=== PATIENT | male | born 1960 | race Caucasian/White ===

== ENCOUNTER 2016-10-30 06:06 | Day surgery (SDC) | payer MEDICARE, MEDICAID ==
[~2016-10-30] VITALS: Ht 157.5 cm; Wt 70.0 kg
[~2016-10-30 06:06] MED LIST: ASPI81TA2 PO; CARV25TA2 PO; GLIM1TAB2 PO; HYDR-4010 PO; LISI40TA4 PO; METF-206 PO
--- OUTSIDE RECORDS SUMMARY | 2016-10-30 06:09 | XMS REPORT | Referral Summary ---
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 Name Role Phone Anel Combs Primary Care Physician [phone] Encounter Date(s): 12/04/14 - 12/04/14 [facility] [address] [place] [address] Discharge Diagnosis: Chronic hepatitis C Discharge Diagnosis: Chronic back pain Discharge Diagnosis: Cardiomyopathy Discharge Diagnosis: Benign essential hypertension Discharge Diagnosis: Dyslipidemia Discharge Diagnosis: Congestive heart failure Discharge Diagnosis: Microalbuminuric Diabetic Nephropathy Discharge Disposition: 01-Home or Self Care Attending Physician: Sol Steele APRN Admitting Physician: Sol Steele APRN Vital Signs Most recent to 1 oldest [Reference Range]: Temperature Tympanic 36.3 degC [36.6-38.1 degC] *LOW* (12/04/14 10:59 AM) Peripheral Pulse 92 bpm Rate [60-100 bpm] (12/04/14 10:59 AM) Blood Pressure 110/84 mmHg [90-140/60-90 mmHg] (12/04/14 10:59 AM) Problem List Condition Effective Dates Status Health Status Informant Benign essential Active hypertension (disorder)(Confirmed ) PRIM CARDIOMYOPATHY Active NEC(Confirmed)1 Chronic back Active pain(Confirmed) Chronic hepatitis C Active (disorder)(Confirmed ) Congestive heart Active failure (disorder)(Confirmed )2 Microalbuminuric Active Diabetic Nephropathy(Confirme d) congenital Active HD(Confirmed) ECHO-ASYMETIC SEVERE 09/13/09 Active LVH L-VENTRICAL HYPODENSISI-EF 35%(Confirmed) Asymmetrical septal Active hypertrophy(Confirme d) Dyslipidemia(Confirm Active ed) Pedal Active Edema(Confirmed) GERD without Active esophagitis(Confirme d) Valvular heart 05/31/14 Active disease(Confirmed)3 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 See Conversion Document 2echo 09/13/09, 07/08/11 - Hypertrophic cardiomyopathy, LVH, EF 35-39% (Dr. Bueno) . See Conversion Document 3severe aortic valvular insuff. moderate aortic stenosis, mod. severe valvular insuff, sign elev. of R heart pressures and moderate pulm stenosis. Severe pulm HTN, low cardiac output EF 33Dr. Myles. See Conversion Document Allergies, Adverse Reactions, Alerts No Known Allergies Medications aspirin 325 mg, Oral, 0 Refill(s) Start Date: 12/29/13 Status: Ordered FOR HEP C FOR HEP C, Ghassan-Dr. Valencia, 0 Refill(s) Start Date: 03/26/15 Status: Ordered glimepiride 1 mg oral tablet See Instructions, TAKE 1 TABLET BY MOUTH EVERY DAY, # 30 tabs, 5 Refill(s), CARLA , eRx: [facility] [id number], TAKE 1 TABLET BY MOUTH EVERY DAY Start Date: 03/29/15 Status: Ordered Glucometer strips (DME) DME Item test blood sugars once daily dx 250.00, See Instructions, # 30 tabs, 11 Refill(s), Pharmacy: [facility] [id number], test blood sugars once daily dx 250.00, Supply Start Date: 02/08/14 Status: Ordered HYDROcodone-acetaminophen 7.5 mg-325 mg oral tablet 1 tabs, Oral, q6hr, as needed for pain, must last 30 days, # 60 tabs, 0 Refill(s ) Start Date: 05/30/15 Status: Ordered lisinopril 40 mg oral tablet See Instructions, TAKE 1 BY MOUTH EVERY DAY., # 90 unknown unit, eRx: [facility] [id number], TAKE 1 BY MOUTH EVERY DAY. Start Date: 05/09/14 Status: Ordered metFORMIN 1000 mg oral tablet 1,000 mg 1 tabs, Oral, BID, # 180 tabs, 0 Refill(s), CARLA, Pharmacy: [facility] [id number], 1 tabs Oral BID Start Date: 02/11/15 Status: Ordered metFORMIN 1000 mg oral tablet See Instructions, 1 TABS ORAL BID, # 180 tabs, CARLA, eRx: [facility] [id number], 1 TABS ORAL BID Start Date: 05/13/15 Status: Ordered Pravachol 20 mg oral tablet See Instructions, TAKE 1.5 TABS PO QHS, # 135 unknown unit, 5 Refill(s), eRx: [facility] [id number], TAKE 1.5 TABS PO QHS Start Date: 06/07/14 Status: Ordered Results No data available for this section Immunizations Vaccine Date Refusal Reason hepatitis A-hepatitis B vaccine 12/14/11 hepatitis A-hepatitis B vaccine 10/12/11 hepatitis B adult vaccine 11/17/12 influenza virus vaccine, inactivated 05/30/15 influenza virus vaccine, inactivated 05/01/14 influenza virus vaccine, live 04/13/13 influenza virus vaccine, live 07/02/11 influenza virus vaccine, live 05/06/09 influenza virus vaccine, live 06/19/08 pneumococcal 23-polyvalent vaccine 07/02/11 tetanus/diphtheria/pertussis, acel(Tdap) 11/03/12 varicella virus vaccine 11/03/12 Procedures Procedure Date Related Diagnosis Body Site Echocardiogram 2012 Gall Bladder 05/2010 Heart valve replacement, 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 Plan follow-up with Dr. Combs in 3-6 months. Sooner if problems develop. Benign essential hypertension Report card initiated. We will mail patient results when lab has returned. Cardiomyopathy Continue to follow with cardiology. Chronic hepatitis C Patient has appointment with Dr. Valencia later this month for possible hepatitis C treatment. Requested he discussed routine colonoscopy with him further. Congestive heart failure Continue to follow with cardiology. Dyslipidemia Lab today. We'll call with results. Microalbuminuric Diabetic Nephropathy Lab today. We'll call with results. Orders: HYDROcodone-acetaminophen, 1 tabs, Oral, q6hr, as needed for pain, must last 30 days, # 60 tabs, 0 Refill(s)
[2016-10-30 06:10] VITALS: BP 169/81; PULSE 66; RESP 16; TEMP 97.7; O2SAT 98; Ht 157.5 cm; Wt 70.0 kg
--- OUTSIDE RECORDS SUMMARY | 2016-10-30 06:10 | XMS REPORT | Referral Summary ---
Author Author [facility] Organization [facility] Address Unknown Phone Unavailable Care Team Providers Care Miller Kiln Dried Salt Name Role Phone Jose Ramachandran Primary Care Physician [phone] Encounter VC Date(s): 05/02/15 - 05/02/15 [facility] [address] [place], [place] [address] Discharge Diagnosis: Hepatitis C Discharge Disposition: 01-Home or Self Care Attending Physician: Carlin Valencia MD Admitting Physician: Carlin Valencia MD Vital Signs Most recent to 1 oldest [Reference Range]: Peripheral Pulse 68 bpm Rate [60-100 bpm] (05/02/15 8:38 AM) Blood Pressure 110/74 mmHg [90-140/60-90 mmHg] (05/02/15 8:38 AM) Problem List Condition Effective Dates Status Health Status Informant Valvular heart 05/31/14 Active disease(Confirmed)1 Benign essential Active hypertension (disorder)(Confirmed ) PRIM CARDIOMYOPATHY Active NEC(Confirmed)2 Chronic hepatitis C Active (disorder)(Confirmed ) Congestive heart Active failure (disorder)(Confirmed )3 Microalbuminuric Active Diabetic Nephropathy(Confirme d) congenital Active HD(Confirmed) ECHO-ASYMETIC SEVERE 09/13/09 Active LVH L-VENTRICAL HYPODENSISI-EF 35%(Confirmed) Asymmetrical septal Active hypertrophy(Confirme d) Dyslipidemia(Confirm Active ed) Pedal Active Edema(Confirmed) GERD without Active esophagitis(Confirme d) 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 moderate aortic stenosis, mod. severe valvular insuff, sign elev. of R heart pressures and moderate pulm stenosis. Severe pulm HTN, low cardiac output EF 33Dr. Bueno. See Conversion Document 2Nonischemic Cardiomyopathy. See Conversion Document 3echo 09/13/09, 07/08/11 - Hypertrophic cardiomyopathy, LVH, EF 35-39% (Dr. Bueno) . See Conversion Document Allergies, Adverse Reactions, Alerts No Known Allergies Medications aspirin 325 mg, Oral, 0 Refill(s) Start Date: 12/29/13 Status: Ordered FOR HEP C FOR HEP C, Ghassan-Dr. Valencia, 0 Refill(s) Start Date: 03/26/15 Status: Ordered glimepiride 1 mg oral tablet See Instructions, TAKE 1 TABLET BY MOUTH EVERY DAY, # 30 tabs, 2 Refill(s), CARLA , eRx: [facility] [id number], TAKE 1 TABLET BY MOUTH EVERY DAY Start Date: 09/26/15 Status: Ordered Glucometer strips (DME) DME Item test blood sugars once daily dx 250.00, See Instructions, # 30 tabs, 11 Refill(s), Pharmacy: [facility] [id number], test blood sugars once daily dx 250.00, Supply Start Date: 02/08/14 Status: Ordered HYDROcodone-acetaminophen 7.5 mg-325 mg oral tablet 1 tabs, Oral, q6hr, as needed for pain, must last 30 days, # 60 tabs, 0 Refill(s ) Start Date: 10/07/15 Status: Ordered lisinopril 40 mg oral tablet See Instructions, TAKE 1 BY MOUTH EVERY DAY., # 90 unknown unit, eRx: [facility] [id number], TAKE 1 BY MOUTH EVERY DAY. Start Date: 05/09/14 Status: Ordered metFORMIN 1000 mg oral tablet See Instructions, TAKE 1 TABLET BY MOUTH TWICE DAILY, # 180 tabs, 1 Refill(s), CARLA, eRx: [facility] [id number], TAKE 1 TABLET BY MOUTH TWICE DAILY Start Date: 11/11/15 Status: Ordered Pravachol 20 mg oral tablet See Instructions, TAKE 1.5 TABS PO QHS, # 135 unknown unit, eRx: [facility] [id number], TAKE 1.5 TABS PO QHS Start Date: 07/18/15 Status: Ordered ranitidine 150 mg oral tablet 150 mg 1 tabs, Oral, BID, as needed for GERD, 0 Refill(s) Start Date: 09/24/15 Status: Ordered Results No data available for this section Immunizations Vaccine Date Refusal Reason hepatitis A-hepatitis B vaccine 12/14/11 hepatitis A-hepatitis B vaccine 10/12/11 hepatitis B adult vaccine 11/17/12 influenza virus vaccine, inactivated 09/03/15 influenza virus vaccine, inactivated 05/30/15 influenza virus [...] smoker Assessment and Plan Extracted from: Title: Ambulatory Patient Education Author: Carlin Valencia MD Date: Infectious Disease Hepatitis C Hepatitis C is a viral infection of the liver. Infection may go undetected for months or years because symptoms may be absent or very mild. Chronic liver disease is the main danger of hepatitis C. This may lead to scarring of the liver (cirrhosis), liver failure, and liver cancer. CAUSES Hepatitis C is caused by the hepatitis C virus (HCV). Formerly, hepatitis C infections were most commonly transmitted through blood transfusions. In the early , routine testing of donated blood for hepatitis C and exclusion of blood that tests positive for HCV began. Now, HCV is most commonly transmitted from person to person through injection drug use, sharing needles, or sex with an infected person. A caregiver may also get the infection from exposure to the blood of an infected patient by way of a cut or needle stick. SYMPTOMS Acute Phase Many cases of acute HCV infection are mild and cause few problems.Some people may not even realize they are sick.Symptoms in others may last a few weeks to several months and include: Feeling very tired. Loss of appetite. Nausea. Vomiting. Abdominal pain. Dark yellow urine. Yellow skin and eyes (jaundice). Itching of the skin. Chronic Phase Between 50% to 85% of people who get HCV infection become "chronic carriers." They often have no symptoms, but the virus stays in their body. They may spread the virus to others and can get long-term liver disease. Many people with chronic HCV infection remain healthy for many years. However, up to 1 in 5 chronically infected people may develop severe liver diseases including scarring of the liver (cirrhosis), liver failure, or liver cancer. DIAGNOSIS Diagnosis of hepatitis C infection is made by testing blood for the presence of hepatitis C viral particles called RNA. Other tests may also be done to measure the status of current liver function, exclude other liver problems, or assess liver damage. TREATMENT Treatment with many antiviral drugs is available and recommended for some patients with chronic HCV infection. Drug treatment is generally considered appropriate for patients who: Are 18 years of age or older. Have a positive test for HCV particles in the blood. Have a liver tissue sample (biopsy) that shows chronic hepatitis and significant scarring (fibrosis). Do not have signs of liver failure. Have acceptable blood test results that confirm the wellness of other body organs. Are willing to be treated and conform to treatment requirements. Have no other circumstances that would prevent treatment from being recommended (contraindications). All people who are offered and choose to receive drug treatment must understand that careful medical follow up for many months and even years is crucial in order to make successful care possible. The goal of drug treatment is to eliminate any evidence of HCV in the blood on a long-term basis. This is called a "sustained virologic response" or SVR. Achieving a SVR is associated with a decrease in the chance of life-threatening liver problems, need for a liver transplant, liver cancer rates, and liver-related complications. Successful treatment currently requires taking treatment drugs for at least 24 weeks and up to 72 weeks. An injected drug (interferon) given weekly and an oral antiviral medicine taken daily are usually prescribed. Side effects from these drugs are common and some may be very serious. Your response to treatment must be carefully monitored by both you and your caregiver throughout the entire treatment period. PREVENTION There is no vaccine for hepatitis C. The only way to prevent the disease is to reduce the risk of exposure to the virus. Avoid sharing drug needles or personal items like toothbrushes, razors, and nail clippers with an infected person. Healthcare workers need to avoid injuries and wear appropriate protective equipment such as gloves, gowns, and face masks when performing invasive medical or nursing procedures. HOME CARE INSTRUCTIONS To avoid making your liver disease worse: Strictly avoid drinking alcohol. Carefully review all new prescriptions of medicines with your caregiver. Ask your caregiver which drugs you should avoid. The following drugs are toxic to the liver, and your caregiver may tell you to avoid them: Isoniazid. Methyldopa. Acetaminophen. Anabolic steroids (muscle-building drugs). Erythromycin. Oral contraceptives ( control pills). Check with your caregiver to make sure medicine you are currently taking will not be harmful. Periodic blood tests may be required. Follow your caregiver's advice about when you should have blood tests. Avoid a sexual relationship until advised otherwise by your caregiver. Avoid activities that could expose other people to your blood. Examples include sharing a toothbrush, nail clippers, razors, and needles. Bed rest is not necessary, but it may make you feel better. Recovery time is not related to the amount of rest you receive. This infection is contagious. Follow your caregiver's instructions in order to avoid spread of the infection. SEEK IMMEDIATE MEDICAL CARE IF: You have increasing fatigue or weakness. You have an oral temperature above 102 F (38.9 C), not controlled by medicine. You develop loss of appetite, nausea, or vomiting. You develop jaundice. You develop easy bruising or bleeding. You develop any severe problems as a result of your treatment. MAKE SURE YOU: Understand these instructions. Will watch your condition. Will get help right away if you are not doing well or get worse. Document Released: 07/09/2001 Document Revised: 10/03/2012 Document Reviewed: [facility] Patient Information 2015 [facility]. This information is not intended to replace advice given to you by your health care provider. Make sure you discuss any questions you have with your health care provider. No follow up information was provided. Extracted from: Title: GI Office Visit Note Author: Carlin Valencia MD Date: 05/02/15 Assessment/Plan Impression:Hepatitis Cwith excellent response to treatment Plan:I reassured the patient regarding thelab results. I told him we do need to check lab once more in 3 monthsto make sure that he did get a sustained response.
--- OUTSIDE RECORDS SUMMARY | 2016-10-30 06:10 | XMS REPORT | Referral Summary ---
Author Author [facility], [facility] Organization [facility] Address Unknown Phone Unavailable Care Team Providers Care Family Practice Doctor Name Role Phone Anel Combs Primary Care Physician [phone] Encounter Date(s): 12/04/14 - 12/04/14 [facility] [address] [place] [address] Discharge Diagnosis: Chronic hepatitis C Discharge [...] 30 tabs, 5 Refill(s), CARLA , eRx: [facility] [id number], TAKE 1 TABLET BY MOUTH EVERY DAY Start Date: 03/29/15 Status: Ordered Glucometer strips (DME) DME Item test blood sugars once daily dx 250.00, See Instructions, # 30 tabs, 11 Refill(s), Pharmacy: [facility] [id number], test blood sugars once daily dx 250.00, Supply Start Date: 02/08/14 Status: Ordered HYDROcodone-acetaminophen 7.5 mg-325 mg oral tablet 1 tabs, Oral, q6hr, as needed for pain, must last 30 days, # 60 tabs, 0 Refill(s ) Start Date: 03/26/15 Status: Ordered lisinopril 40 mg oral tablet See Instructions, TAKE 1 BY MOUTH EVERY DAY., # 90 unknown unit, eRx: [facility] [id number], TAKE 1 BY MOUTH EVERY DAY. Start Date: 05/09/14 Status: Ordered metFORMIN 1000 mg oral tablet 1,000 mg 1 tabs, Oral, BID, # 180 tabs, 0 Refill(s), CARLA, Pharmacy: [facility] [id number], 1 tabs Oral BID Start Date: 02/11/15 Status: Ordered metFORMIN 1000 mg oral tablet See Instructions, 1 TABS ORAL BID, # 180 tabs, CARLA, eRx: [facility] [id number], 1 TABS ORAL BID Start Date: 05/13/15 Status: Ordered Pravachol 20 mg oral tablet See Instructions, TAKE 1.5 TABS PO QHS, # 135 unknown unit, 5 Refill(s), eRx: [facility] [id number], TAKE 1.5 TABS PO QHS Start Date: 06/07/14 Status: Ordered Results No data available for this section Immunizations Vaccine Date Refusal Reason hepatitis A-hepatitis B vaccine 12/14/11 hepatitis A-hepatitis B vaccine 10/12/11 hepatitis B adult vaccine 11/17/12 influenza virus vaccine, inactivated 05/01/14 influenza virus [...] Office Visit Note CDM Author: Sol Steele APRN Date: Assessment/Plan 1.Chronic back pain Continue hydrocodone [...]
--- OUTSIDE RECORDS SUMMARY | 2016-10-30 06:10 | XMS REPORT | Referral Summary ---
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 Name Role Phone Jose Ramachandran Primary Care Physician [phone] Encounter VC Date(s): 01/02/15 - 01/02/15 [facility] [address] [place], [place] [address] Discharge Diagnosis: Hepatitis C Discharge Disposition: 01-Home or Self Care Attending Physician: Carlin Valencia MD Admitting Physician: Carlin Valencia MD Vital Signs Most recent to 1 oldest [Reference Range]: Peripheral Pulse 72 bpm Rate [60-100 bpm] (01/02/15 1:02 PM) Blood Pressure 122/76 mmHg [90-140/60-90 mmHg] (01/02/15 1:02 PM) Problem List Condition Effective Dates Status Health [...] output EF 33Dr. Bueno. See Conversion Document Allergies, Adverse Reactions, Alerts No Known Allergies Medications aspirin 325 mg, Oral, 0 Refill(s) Start Date: 12/29/13 Status: Ordered FOR HEP C FOR HEP C, Huong Valencia, 0 Refill(s) Start Date: 03/26/15 Status: Ordered glimepiride 1 mg oral tablet See Instructions, TAKE 1 TABLET BY MOUTH EVERY DAY, # 30 tabs, 5 Refill(s), CARLA , eRx: [facility] [id number], TAKE 1 TABLET BY MOUTH EVERY DAY Start Date: 03/29/15 Status: Ordered Glucometer strips (DME) DME Item test blood sugars once daily dx 250.00, See Instructions, # 30 tabs, 11 Refill(s), Pharmacy: [facility] [id number], test blood sugars once daily dx 250.00, Supply Start Date: 02/08/14 Status: Ordered HYDROcodone-acetaminophen 7.5 mg-325 mg oral tablet 1 tabs, Oral, q6hr, as needed for pain, must last 30 days, # 60 tabs, 0 Refill(s ) Start Date: 05/30/15 Status: Ordered lisinopril 40 mg oral tablet See Instructions, TAKE 1 BY MOUTH EVERY DAY., # 90 unknown unit, eRx: [facility] [id number], TAKE 1 BY MOUTH EVERY DAY. Start Date: 05/09/14 Status: Ordered metFORMIN 1000 mg oral tablet 1,000 mg 1 tabs, Oral, BID, # 180 tabs, 0 Refill(s), CARLA, Pharmacy: [facility] [id number], 1 tabs Oral BID Start Date: 02/11/15 Status: Ordered metFORMIN 1000 mg oral tablet See Instructions, 1 TABS ORAL BID, # 180 tabs, CARLA, eRx: [facility] [id number], 1 TABS ORAL BID Start Date: 05/13/15 Status: Ordered Pravachol 20 mg oral tablet See Instructions, TAKE 1.5 TABS PO QHS, # 135 unknown unit, 5 Refill(s), eRx: [facility] [id number], TAKE 1.5 TABS PO QHS Start Date: 06/07/14 Status: Ordered Results Chemistry Most recent to 1 oldest [Reference Range]: Hepatitis C viral [id number] Intl Units/mL RNA (01/02/15 2:12 PM) HCV Log10 6.3 1 (01/02/15 2:12 PM) 1Result Comment: This test is for monitoring of HCV positive patients only and should not be used as a screening test for HCV infection. 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 I think he would be a good candidate to be placed on Harvoni. We will send off a preapproval for that. We will check a viral level today on him
--- OUTSIDE RECORDS SUMMARY | 2016-10-30 06:10 | XMS REPORT | Referral Summary ---
Author Author [facility] Organization [facility] Address Unknown Phone Unavailable Care Team Providers Care Individual Small Group Instructor Name Role Phone Anel Combs Primary Care Physician [phone] Encounter VC Date(s): 05/02/15 - 05/02/15 [facility] [address] [place], [place] [address] Discharge Diagnosis: Hepatitis C Discharge Disposition: 01-Home [...] 30 tabs, 5 Refill(s), CARLA , eRx: [facility] [id number], TAKE 1 TABLET BY MOUTH EVERY DAY Start Date: 03/29/15 Status: Ordered Glucometer strips (DME) DME Item test blood sugars once daily dx 250.00, See Instructions, # 30 tabs, 11 Refill(s), Pharmacy: [facility] [id number], test blood sugars once daily dx 250.00, Supply Start Date: 02/08/14 Status: Ordered HYDROcodone-acetaminophen 7.5 mg-325 mg oral tablet 1 tabs, Oral, q6hr, as needed for pain, must last 30 days, # 60 tabs, 0 Refill(s ) Start Date: 03/26/15 Status: Ordered lisinopril 40 mg oral tablet See Instructions, TAKE 1 BY MOUTH EVERY DAY., # 90 unknown unit, eRx: [facility] [id number], TAKE 1 BY MOUTH EVERY DAY. Start Date: 05/09/14 Status: Ordered metFORMIN 1000 mg oral tablet 1,000 mg 1 tabs, Oral, BID, # 180 tabs, 0 Refill(s), CARLA, Pharmacy: [facility] [id number], 1 tabs Oral BID Start Date: 02/11/15 Status: Ordered Pravachol 20 mg oral tablet See Instructions, TAKE 1.5 TABS PO QHS, # 135 unknown unit, 5 Refill(s), eRx: [facility] [id number], TAKE 1.5 TABS PO QHS Start Date: [...] Released: 07/09/2001 Document Revised: 10/03/2012 Document Reviewed: [employer] Patient Information 2015 [facility], [employer]. This information is not intended to replace [...]
--- OUTSIDE RECORDS SUMMARY | 2016-10-30 06:10 | XMS REPORT | Referral Summary ---
[facility] Address Unknown Phone Unavailable Care Team Providers Care Informatica Mdm Developer Name Role Phone Jose Ramachandran Primary Care Physician [phone] Encounter Date(s): 10/07/15 - 10/07/15 [facility] [address] [place] [id number] Discharge Diagnosis: Benign essential hypertension Discharge Diagnosis: Type 2 diabetes mellitus without complications Discharge Diagnosis: Valvular heart disease Discharge Diagnosis: Chronic back pain Discharge Diagnosis: Microalbuminuric Diabetic Nephropathy Discharge Diagnosis: Chronic hepatitis C Discharge Disposition: 01-Home or Self Care Attending Physician: Royal Ramachandran MD Admitting Physician: Royal Ramachandran MD Vital Signs Most recent to 1 oldest [Reference Range]: Temperature Tympanic 36.7 degC [36.6-38.1 degC] (10/07/15 2:28 PM) Peripheral Pulse 84 bpm Rate [60-100 bpm] (10/07/15 2:28 PM) Respiratory Rate 18 br/min [14-20 br/min] (10/07/15 2:28 PM) Blood Pressure 124/80 mmHg [90-140/60-90 mmHg] (10/07/15 2:28 PM) Problem List Condition Effective Dates Status [...] 30 tabs, 2 Refill(s), CARLA , eRx: [facility] [id number], TAKE 1 TABLET BY MOUTH EVERY DAY Start Date: 09/26/15 Status: Ordered Glucometer strips (DME) DME Item test blood sugars once daily dx 250.00, See Instructions, # 30 tabs, 11 Refill(s), Pharmacy: [facility] 35654, test blood sugars once daily dx 250.00, Supply Start Date: 02/08/14 Status: Ordered HYDROcodone-acetaminophen 7.5 mg-325 mg oral tablet 1 tabs, Oral, q6hr, as needed for pain, must last 30 days, # 60 tabs, 0 Refill(s ) Start Date: 10/07/15 Status: Ordered lisinopril 40 mg oral tablet See Instructions, TAKE 1 BY MOUTH EVERY DAY., # 90 unknown unit, eRx: [facility] 98482, TAKE 1 BY MOUTH EVERY DAY. Start Date: 05/09/14 Status: Ordered metFORMIN 1000 mg oral tablet 1,000 mg 1 tabs, Oral, BID, # 180 tabs, 0 Refill(s), CARLA, Pharmacy: [facility] 24944, 1 tabs Oral BID Start Date: 02/11/15 Status: Ordered metFORMIN 1000 mg oral tablet See Instructions, 1 TABS ORAL BID, # 180 tabs, 0 Refill(s), CARLA, Pharmacy: [facility] 46643, 1 TABS ORAL BID Start Date: 08/16/15 Status: Ordered Pravachol 20 mg oral tablet See Instructions, TAKE 1.5 TABS PO QHS, # 135 unknown unit, eRx: [facility] 55374, TAKE 1.5 TABS PO QHS Start Date: [...] Plan Extracted from: Title: Office Visit Note Author: Royal Ramachandran MD Date: 10/07/15 Assessment/Plan Benign essential hypertension Blood pressures well-controlled. No change in current treatment is recommended at this time. Continue 3 month follow-up either with Sol or myself. Ordered: Office Visit Level 4 Est 91670 Chronic back pain Hydrocodone was refilled today no change in current treatment is recommended. Ordered: Office Visit Level 4 Est 77458 Chronic hepatitis C Most recentviral load showsnot detected. No further treatment needed. Ordered: Office Visit Level 4 Est 16829 Microalbuminuric Diabetic Nephropathy Chronic stable no change in current treatment. Type 2 diabetes mellitus without complications Glucometers of beenwell- controlled and most recent A1c is 7.3. Medications and treatments reviewed no changes are currently recommended. Valvular heart disease Appears to be chronic and stable. 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 No change in current treatment recommended. Ordered: Office Visit Level 4 Est 79028 Orders: HYDROcodone-acetaminophen, 1 tabs, Oral, q6hr, as needed for pain, must last 30 days, # 60 tabs, 0 Refill(s)
--- OUTSIDE RECORDS SUMMARY | 2016-10-30 06:10 | XMS REPORT | Referral Summary ---
Author Author [facility], [facility] Organization [facility] Address Unknown Phone Unavailable Care Team Providers Care Marshmallow Maker Name Role Phone Jose Ramachandran Primary Care Physician [phone] Encounter Date(s): 05/22/16 - 05/22/16 [facility], [address] [place] [address]- Discharge Diagnosis: Benign essential hypertension Discharge Diagnosis: Allergic rhinitis, seasonal Discharge Diagnosis: Dyslipidemia Discharge Diagnosis: Viral respiratory infection Discharge Diagnosis: Microalbuminuric Diabetic Nephropathy Discharge Disposition: 01-Home or Self Care Attending Physician: Sol Steele APRN Admitting Physician: Sol Steele APRN Vital Signs Most recent to 1 oldest [Reference Range]: Temperature Tympanic 36.2 degC [36.6-38.1 degC] *LOW* (05/22/16 2:06 PM) Peripheral Pulse 70 bpm Rate [60-100 bpm] (05/22/16 2:06 PM) Respiratory Rate 16 br/min [14-20 br/min] (05/22/16 2:06 PM) Blood Pressure 112/62 mmHg [90-140/60-90 mmHg] (05/22/16 2:06 PM) SpO2 97 % (05/22/16 2:06 PM) Problem List Condition Effective Dates Status [...] output EF 33Dr. Myles. See Conversion Document 2Nonischemic Cardiomyopathy. See Conversion Document 3echo 09/13/09, 07/08/11 - Hypertrophic cardiomyopathy, LVH, EF 35-39% (Dr. Bueno) . See Conversion Document Allergies, Adverse Reactions, Alerts No Known Allergies Medications aspirin 325 mg, Oral, 0 Refill(s) Start Date: 12/29/13 Status: Ordered diclofenac sodium 75 mg oral delayed release tablet 75 mg 1 tabs, Oral, BID, # 40 tabs, 0 Refill(s), Pharmacy: [facility], 1 tabs Oral BID Start Date: 03/09/16 Status: Ordered FOR HEP C FOR HEP C, Ghassan-Dr. Valencia, 0 Refill(s) Start Date: 03/26/15 Status: Ordered glimepiride 1 mg oral tablet See Instructions, TAKE 1 TABLET BY MOUTH EVERY DAY, # 30 tabs, 5 Refill(s), CARLA , eRx: [facility] 44666, TAKE 1 TABLET BY MOUTH EVERY DAY Start Date: 03/31/16 Status: Ordered Glucometer strips (DME) DME Item test blood sugars once daily dx 250.00, See Instructions, # 30 tabs, 11 Refill(s), Pharmacy: [facility] 42412, test blood sugars once daily dx 250.00, Supply Start Date: 02/08/14 Status: Ordered Glucometer (DME) DME Item [employer] trueresult glucometer test BS once daily DX: E11.9, See Instructions, # 1 Each, 0 Refill(s), Pharmacy: [facility] 55305, Movity trueresult glucometer; test BS once daily; DX: E11.9, Supply Start Date: 04/14/16 Status: Ordered Glucometer strips (DME) DME Item evOLED TRUERESULT TEST STRIPS TEST BS ONCE DAILY DX: E11.9, See Instructions, # 100 Each, 11 Refill(s), Pharmacy: [facility] [id number], AnzodeULT TEST STRIPS TEST BS ONCE DAILY ; DX: E11.9, Supply Start Date: 04/14/16 Status: Ordered HYDROcodone-acetaminophen 7.5 mg-325 mg oral tablet 1 tabs, Oral, q6hr, as needed for pain, must last 30 days, # 60 tabs, 0 Refill(s ) Start Date: 04/23/16 Status: Ordered lisinopril 40 mg oral tablet See Instructions, TAKE 1 BY MOUTH EVERY DAY., # 90 unknown unit, eRx: [facility] 71661, TAKE 1 BY MOUTH EVERY DAY. Start Date: 05/09/14 Status: Ordered metFORMIN 1000 mg oral tablet 1,000 mg 1 tabs, Oral, BID, NEEDS MED CHECK APPT, # 60 tabs, 0 Refill(s), CARLA, Pharmacy: [facility] 85123, 1 tabs Oral BID,Instr:NEEDS MED CHECK APPT Start Date: 05/14/16 Status: Ordered Pravachol 20 mg oral tablet See Instructions, TAKE 1.5 TABS PO QHS, # 135 unknown unit, eRx: [facility] 63088, TAKE 1.5 TABS PO QHS Start Date: 07/18/15 Status: Ordered predniSONE 20 mg oral tablet 20 mg 1 tabs, Oral, Daily, X 5 days, # 5 tabs, 0 Refill(s), Pharmacy: [facility] 01305, 1 tabs Oral Daily,x5 days Start Date: 05/22/16 Stop Date: 05/27/16 Status: Ordered ranitidine 150 mg oral tablet 150 mg 1 tabs, Oral, BID, as needed for GERD, 0 Refill(s) Start Date: 09/24/15 Status: Ordered Results No data available for this section Immunizations Vaccine Date Refusal Reason hepatitis A-hepatitis B vaccine 12/14/11 hepatitis A-hepatitis B vaccine 10/12/11 hepatitis B adult vaccine 11/17/12 influenza virus vaccine, inactivated 04/14/16 influenza virus vaccine, inactivated 09/03/15 influenza virus [...] and Plan Extracted from: Title: Office Visit Note-URI Author: Sol Steele FIELD EVIDENCE TECHNICIAN Date: Assessment/Plan 1.Viral respiratory infection Discussed with patient this is likely viral in nature. The clinical history is most compatible with that of a viral syndrome. Clinical examination does not suggest sinusitis, pneumonia, meningitis or streptococcal pharyngitis. Increase fluid intake. Enc good handwashing. Recommend OTC Delsym, Afrin nasal spray (for no more than 5 days), per package instructions as need for cough/congestion. Recommend salt water gargles, Chloraseptic spray, throat lozenges for sore throat as needed. Recommend OTC Tylenol and/or Ibuprofen per package instructions as needed for fever, pain, and body aches. No aspirin. Symptoms should improve over the next 1-2 weeks. If symptoms get worse, spikes fever, inc cough or shortness of breath to notify the office for further evaluation. I do not feel that any further extensive workup is indicated. However the patient is counseled that should new symptoms develop or the symptoms worsen, further evaluation and testing may be warranted as those symptoms declare themselves and that followup is of vital importance. Ordered: Office Visit Level 3 Est 49430 2.Allergic rhinitis, seasonal Claritin 10 mg dly. Ordered: Office Visit Level 3 Est 08348 3.Microalbuminuric Diabetic Nephropathy Due for chronic disease management and lab. Patient to get lab workMonday and, later in the week to review. He has had his flu shot this year. Ordered: Albumin/Creatinine Ratio, Urine Hemoglobin A1c Office Visit Level 3 Est 31534 4.Benign essential hypertension Ordered: Comprehensive Metabolic Panel Lipid Panel Office Visit Level 3 Est 49399 5.Dyslipidemia Ordered: Lipid Panel Office Visit Level 3 Est 19262
--- OUTSIDE RECORDS SUMMARY | 2016-10-30 06:10 | XMS REPORT ---
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
--- OUTSIDE RECORDS SUMMARY | 2016-10-30 06:10 | XMS REPORT | Referral Summary ---
Author Author [facility], [facility] Organization [facility] Address Unknown Phone Unavailable Care Team Providers Care Information Services Consultant Name Role Phone Anel Combs Primary Care Physician [phone] Encounter Date(s): 12/04/14 - 12/04/14 [facility] [address] [place] [id number] Discharge Diagnosis: Chronic hepatitis C Discharge Diagnosis: [...] 30 tabs, 5 Refill(s), CARLA , eRx: [facility] 73010, TAKE 1 TABLET BY MOUTH EVERY DAY Start Date: 03/29/15 Status: Ordered Glucometer strips (DME) DME Item test blood sugars once daily dx 250.00, See Instructions, # 30 tabs, 11 Refill(s), Pharmacy: [facility] 14187, test blood sugars once daily dx 250.00, Supply Start Date: 02/08/14 Status: Ordered HYDROcodone-acetaminophen 7.5 mg-325 mg oral tablet 1 tabs, Oral, q6hr, as needed for pain, must last 30 days, # 60 tabs, 0 Refill(s ) Start Date: 05/30/15 Status: Ordered lisinopril 40 mg oral tablet See Instructions, TAKE 1 BY MOUTH EVERY DAY., # 90 unknown unit, eRx: [facility] 76748, TAKE 1 BY MOUTH EVERY DAY. Start Date: 05/09/14 Status: Ordered metFORMIN 1000 mg oral tablet 1,000 mg 1 tabs, Oral, BID, # 180 tabs, 0 Refill(s), ACRLA, Pharmacy: [facility] 45971, 1 tabs Oral BID Start Date: 02/11/15 Status: Ordered metFORMIN 1000 mg oral tablet See Instructions, 1 TABS ORAL BID, # 180 tabs, CARLA, eRx: [facility] 00275, 1 TABS ORAL BID Start Date: 05/13/15 Status: Ordered Pravachol 20 mg oral tablet See Instructions, TAKE 1.5 TABS PO QHS, # 135 unknown unit, 5 Refill(s), eRx: [facility] [address]8637, TAKE 1.5 TABS PO QHS Start Date: [...] Office Visit Note CDM Author: Sol Steele PERFORMANCE IMPROVEMENT DIRECTOR Date: Assessment/Plan 1.Chronic back pain Continue hydrocodone [...]
--- OUTSIDE RECORDS SUMMARY | 2016-10-30 06:10 | XMS REPORT | Referral Summary ---
Author Author [facility], [facility] Organization [facility] Address Unknown Phone Unavailable Care Team Providers Care Medical Accounting Clerk Name Role Phone Jose Ramachandran Primary Care Physician [phone] Encounter VC Date(s): 03/09/16 - 03/09/16 [facility] [address] [place] [address]- Discharge Diagnosis: Left shoulder pain Discharge Disposition: 01-Home or Self Care Attending Physician: Royal Ramachandran MD Admitting Physician: Royal Ramachandran MD Vital Signs Most recent to 1 oldest [Reference Range]: Temperature Tympanic 36.1 degC [36.6-38.1 degC] *LOW* (03/09/16 11:15 AM) Peripheral Pulse 88 bpm Rate [60-100 bpm] (03/09/16 11:15 AM) Respiratory Rate 24 br/min [14-20 br/min] *HI* (03/09/16 11:15 AM) Blood Pressure 160/102 mmHg [90-140/60-90 mmHg] *HI* (03/09/16 11:15 AM) Problem List Condition Effective Dates Status [...] d) Erectile 11/2010 Active dysfunction(Confirme d) Retinal 2013 Resolved edema(Confirmed) Chronic back Active pain(Confirmed) 1severe [...] BID, # 40 tabs, 0 Refill(s), Pharmacy: [facility] 82128, 1 tabs Oral BID Start Date: 03/09/16 Status: Ordered FOR HEP C FOR HEP C, Ghassan-Dr. Valencia, 0 Refill(s) Start Date: 03/26/15 Status: Ordered glimepiride 1 mg oral tablet See Instructions, TAKE 1 TABLET BY MOUTH EVERY DAY, # 30 tabs, 2 Refill(s), CARLA , eRx: [facility] 00673, TAKE 1 TABLET BY MOUTH EVERY DAY Start Date: 12/30/15 Status: Ordered Glucometer strips (DME) DME Item test blood sugars once daily dx 250.00, See Instructions, # 30 tabs, 11 Refill(s), Pharmacy: [facility] 28336, test blood sugars once daily dx 250.00, Supply Start Date: 02/08/14 Status: Ordered HYDROcodone-acetaminophen 7.5 mg-325 mg oral tablet 1 tabs, Oral, q6hr, as needed for pain, must last 30 days, # 60 tabs, 0 Refill(s ) Start Date: 02/11/16 Status: Ordered lisinopril 40 mg oral tablet See Instructions, TAKE 1 BY MOUTH EVERY DAY., # 90 unknown unit, eRx: [facility] [id number], TAKE 1 BY MOUTH EVERY DAY. Start Date: 05/09/14 Status: Ordered metFORMIN 1000 mg oral tablet See Instructions, TAKE 1 TABLET BY MOUTH TWICE DAILY, # 180 tabs, 1 Refill(s), CARLA, eRx: [facility] 72348, TAKE 1 TABLET BY MOUTH TWICE DAILY Start Date: 11/11/15 Status: Ordered Pravachol 20 mg oral tablet See Instructions, TAKE 1.5 TABS PO QHS, # 135 unknown unit, eRx: [facility] 26259, TAKE 1.5 TABS PO QHS Start Date: [...] Visit Note Author: Royal Ramachandran MD Date: 03/09/16 Assessment/Plan 1.Left shoulder pain His x-ray looks pretty good at think this is more of a tendinitis and some muscle strain. I've recommended a regular dose of diclofenac 75 mg twice a dayfor the next 10-14 days if not improving he'll let us know. I didtell him that his blood pressure was a little on the high side here today he has been checking it occasionally at home and it's been in the normal range. I've asked him to follow-upin the next monthforhis diabetes and hypertension. If his shoulders not improving he'll let us now. Ordered: XR Shoulder Complete Left Orders: diclofenac, 75 mg 1 tabs, Oral, BID, # 40 tabs, 0 Refill(s), Pharmacy : [facility] 93584, 1 tabs Oral BID
--- OUTSIDE RECORDS SUMMARY | 2016-10-30 06:10 | XMS REPORT | Referral Summary ---
Author Author [facility], [facility] Organization [facility] Address Unknown Phone Unavailable Care Team Providers Care Desktop Manager Name Role Phone Jose Ramachandran Primary Care Physician [phone] Encounter VC Date(s): 04/14/16 - 04/14/16 [facility] [address] [place] [address]- Discharge Diagnosis: Strain of left trapezius muscle Discharge Disposition: 01-Home or Self Care Attending Physician: Sol Steele APRN Admitting Physician: Sol Steele APRN Vital Signs Most recent to 1 oldest [Reference Range]: Temperature Tympanic 36.5 degC [36.6-38.1 degC] *LOW* (04/14/16 8:39 AM) Peripheral Pulse 72 bpm Rate [60-100 bpm] (04/14/16 8:39 AM) Blood Pressure 126/78 mmHg [90-140/60-90 mmHg] (04/14/16 8:39 AM) Problem List Condition Effective Dates Status [...] BID, # 40 tabs, 0 Refill(s), Pharmacy: [facility], 1 tabs Oral BID Start Date: 03/09/16 Status: Ordered FOR HEP C FOR HEP C, Ghassan-Dr. Valencia, 0 Refill(s) Start Date: 03/26/15 Status: Ordered glimepiride 1 mg oral tablet See Instructions, TAKE 1 TABLET BY MOUTH EVERY DAY, # 30 tabs, 5 Refill(s), CARLA , eRx: [facility], TAKE 1 TABLET BY MOUTH EVERY DAY Start Date: 03/31/16 Status: Ordered Glucometer strips (DME) DME Item test blood sugars once daily dx 250.00, See Instructions, # 30 tabs, 11 Refill(s), Pharmacy: [facility], test blood sugars once daily dx 250.00, Supply Start Date: 02/08/14 Status: Ordered Glucometer (DME) DME Item [employer] trueresult glucometer test BS once daily DX: E11.9, See Instructions, # 1 Each, 0 Refill(s), Pharmacy: [facility], [employer] trueresult glucometer; test BS once daily; DX: E11.9, Supply Start Date: 04/14/16 Status: Ordered Glucometer strips (DME) DME Item [employer] TRUERESULT TEST STRIPS TEST BS ONCE DAILY DX: E11.9, See Instructions, # 100 Each, 11 Refill(s), Pharmacy: [facility] [address]648, [employer] TRUERESULT TEST STRIPS TEST BS ONCE DAILY ; DX: E11.9, Supply Start Date: 04/14/16 Status: Ordered HYDROcodone-acetaminophen 7.5 mg-325 mg oral tablet 1 tabs, Oral, q6hr, as needed for pain, must last 30 days, # 60 tabs, 0 Refill(s ) Start Date: 03/16/16 Status: Ordered lisinopril 40 mg oral tablet See Instructions, TAKE 1 BY MOUTH EVERY DAY., # 90 unknown unit, eRx: [facility] 12698, TAKE 1 BY MOUTH EVERY DAY. Start Date: 05/09/14 Status: Ordered metFORMIN 1000 mg oral tablet See Instructions, TAKE 1 TABLET BY MOUTH TWICE DAILY, # 180 tabs, 1 Refill(s), CARLA, eRx: [facility] 42369, TAKE 1 TABLET BY MOUTH TWICE DAILY Start Date: 11/11/15 Status: Ordered Pravachol 20 mg oral tablet See Instructions, TAKE 1.5 TABS PO QHS, # 135 unknown unit, eRx: [facility] 29174, TAKE 1.5 TABS PO QHS Start Date: [...] and Plan Extracted from: Title: Office Visit Note-trapezius Author: Sol Steele APRN Date: muscle strain Assessment/Plan 1.Strain of left trapezius muscle Take NSAID as directed till complete. Avoid other NSAIDs. Take with food as they may irritate the stomach. : Give an update when his supply is completed. OK to take Tylenol per package instructions as needed for pain. Icy hot or other muscle rub 2-3 x a day to affected area. Stretching exercises demonstrated. Do these 2-3 x a day. Avoid lifting and other activities that exacerbate the pain. If inc weakness/N/T or pain persist for more than 4-6 weeks let us know. Recommend physical therapy. Referral sent to advanced physical therapy per patient request. Left shoulder pain Ordered: Physical Therapy Communication Order Need for influenza vaccination Counseled on flu vaccine given by nursing. Patient reports his glucometer isnot always staying on. Requests a new one. Will have nursing set this up for him. Addendum I reviewed this chart, the patient's medical history, and the by Ness, Resident's/SYSTEMS SPECIALIST's/PA/RN's/PharmD's documented findings, and concur with the assessment and Vikram DO plan as above. on April 14, 2016 12:14:07 CDT
--- OUTSIDE RECORDS SUMMARY | 2016-10-30 06:10 | XMS REPORT ---
Author Author Graciela Barton Organization [facility] Address [address] [place] [address] Care Team Providers Care Didactic Instructor Name Role Phone Graciela Barton Unavailable [phone] PROBLEMS Type Condition ICD9-CM Code [id number] Code Onset Dates Condition Status SNOMED Code Assessment Congenital pulmonary valve stenosis Q22.1 Jun, Active 55641507 Assessment Dilated cardiomyopathy I42.0 Jun, Active 827909637 Assessment Presence of prosthetic heart valve Z95.2 Jun, Active 430934804936507 Assessment Essential (primary) hypertension I10 Jun, Active 02827038 Problem S/P Aortic Valve Replacement V43.3 Active 11430752 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 Unknown Non Drug Allergy Jun, Unknown SOCIAL HISTORY No smoking Hx information available PLAN OF CARE VITAL SIGNS Height 62 in 2016-07-13 Weight 153 lbs 2016-07-13 BMI 27.98 kg/m2 2016-07-13 Oximetry 97 % 2016-07-13 Heart Rate 83 /min 2016-07-13 Blood pressure systolic 110 mm Hg 2016-07-13 Blood pressure diastolic 80 mm Hg 2016-07-13 MEDICATIONS Medication Instructions Dosage Frequency Start Date End Date Duration Status Viagra 50 mg 1 tablet Active Actos 30 mg 1 tablet 24h Active Coreg 25 MG Orally bid 1 tab twice a day 12h Active Lortab 7.5-500 mg 1 or 2 tablets Active Aspirin 325 mg 1 tablet 24h Active Lisinopril 40 mg 1 tablet 24h Active Metformin HCl 1000 mg 1 tablet with meals 12h Active RESULTS No Results PROCEDURES Procedure Date Ordered Related Diagnosis Body Site Office Visit, Est Pt., Level 3 Jul 13, 2016 IMMUNIZATIONS No Known Immunizations
--- OUTSIDE RECORDS SUMMARY | 2016-10-30 06:10 | XMS REPORT ---
Author Author Graciela Barton Organization [employer] Address Unknown Phone Unavailable Care Team Providers Care Teller Head Name Role Phone Graciela Barton CP Unavailable Allergies, Adverse Reactions, Alerts Substance Reaction Event Type N.K.D.A. 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 Problem Pulmonary Hypertension, Chronic, Unspecified 416.9 Active Problem S/P Aortic Valve Replacement V43.3 Active Problem Hypertension, Unspecified 401.9 Active Assessment Dilated cardiomyopathy I42.0 Active Problem Hyperlipidemia 272.4 Active Problem Congestive Heart Failure, Unspecified 428.0 Active Medications Medication Code System Code Instructions Start Date End Date Status Dosage Lortab [facility] [address]-60 7.5-500 mg Twice a day, only if needed 1 or 2 tablets Metformin HCl [facility] [address]-01 1000 mg Twice a day 1 tablet with meals Coreg [facility] [address]-06 12.5 MG Orally bid 1 & 1/2 tab twice a day Coreg [facility] [address]-56 12.5 MG Orally bid 1 tablet Viagra [facility] [address]-33 50 mg If needed 1 tablet Aspirin [facility] [address]-94 325 mg Once a day 1 tablet Actos [facility] [address]-82 30 mg Once a day 1 tablet Lisinopril [facility] [address]-30 40 mg Once a day 1 tablet Procedures Procedure Coding System Code Date Office Visit, Est Pt., Level 3 CPT-4 20895 Jun 01, 2016 Vital Signs Date/Time: Jun 01, 2016 BMI 29.08 Index Weight 159 lbs Height 62 in Cardiac Monitoring Heart Rate 73 /min Oximetry 96 % Blood Pressure Diastolic 70 mm Hg Blood Pressure Systolic 128 mm Hg Results No Known Results Summary Purpose [employer] Submission
--- OUTSIDE RECORDS SUMMARY | 2016-10-30 06:10 | XMS REPORT ---
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 Unknown Non Drug Allergy Apr, Unknown SOCIAL HISTORY No smoking Hx information available PLAN OF CARE VITAL SIGNS Height 62 in 2016-05-05 Weight 158 lbs 2016-05-05 BMI 28.90 kg/m2 2016-05-05 Oximetry 96 % 2016-05-05 Heart Rate 90 /min 2016-05-05 Blood pressure systolic 132 mm Hg 2016-05-05 Blood pressure diastolic 80 mm Hg 2016-05-05 MEDICATIONS Medication Instructions Dosage Frequency Start Date End Date Duration Status Lisinopril 40 mg 1 tablet 24h Active Aspirin 325 mg 1 tablet 24h Active Metformin HCl 1000 mg 1 tablet with meals 12h Active Coreg 12.5 MG Orally bid 1 tab twice a day 12h Apr, Active Lortab 7.5-500 mg 1 or 2 tablets Active Actos 30 mg 1 tablet 24h Active Viagra 50 mg 1 tablet Active RESULTS No Results PROCEDURES Procedure Date Ordered Related Diagnosis Body Site Office Visit, Est Pt., Level 3 May 05, 2016 IMMUNIZATIONS No Known Immunizations
--- OUTSIDE RECORDS SUMMARY | 2016-10-30 06:10 | XMS REPORT ---
Author Author Marycarmen Powell Organization [facility] Address [address] [place] [address] Care Team Providers Care Property Technician Name Role Phone Marycarmen Powell Unavailable [phone] PROBLEMS Type Condition ICD9-CM Code [id number] Code Onset Dates Condition Status SNOMED Code Problem S/P Aortic Valve Replacement V43.3 Active 43467497 Problem Congenital stenosis of pulmonary valve 746.02 Active 21021928 Problem Hypertension, Unspecified 401.9 Active 50865950 Problem Congestive Heart Failure, Unspecified 428.0 Active 39967703 Problem Pulmonary Hypertension, Chronic, Unspecified 416.9 Active 71806069 Problem Hyperlipidemia 272.4 Active 56690057 ALLERGIES Unknown Allergies SOCIAL HISTORY No smoking Hx information available PLAN OF CARE VITAL SIGNS MEDICATIONS Unknown Medications RESULTS No Results PROCEDURES No Known procedures IMMUNIZATIONS No Known Immunizations
--- OUTSIDE RECORDS SUMMARY | 2016-10-30 06:10 | XMS REPORT | Referral Summary ---
Author Author [facility], [facility] Organization [facility] Address Unknown Phone Unavailable Care Team Providers Care Operations Plant Attendant Name Role Phone Anel Combs Primary Care Physician [phone] Encounter Date(s): 12/04/14 - 12/04/14 [facility] [address] [place] [id number] Discharge Diagnosis: Chronic hepatitis C Discharge [...] 30 tabs, 5 Refill(s), CARLA , eRx: [facility] [id number], TAKE 1 TABLET BY MOUTH EVERY DAY Start Date: 03/29/15 Status: Ordered Glucometer strips (DME) DME Item test blood sugars once daily dx 250.00, See Instructions, # 30 tabs, 11 Refill(s), Pharmacy: [facility] [id number], test blood sugars once daily dx 250.00, Supply Start Date: 02/08/14 Status: Ordered HYDROcodone-acetaminophen 7.5 mg-325 mg oral tablet 1 tabs, Oral, q6hr, as needed for pain, must last 30 days, # 60 tabs, 0 Refill(s ) Start Date: 05/30/15 Status: Ordered lisinopril 40 mg oral tablet See Instructions, TAKE 1 BY MOUTH EVERY DAY., # 90 unknown unit, eRx: [facility] 85409, TAKE 1 BY MOUTH EVERY DAY. Start Date: 05/09/14 Status: Ordered metFORMIN 1000 mg oral tablet 1,000 mg 1 tabs, Oral, BID, # 180 tabs, 0 Refill(s), CARLA, Pharmacy: [facility] [address]304, 1 tabs Oral BID Start Date: 02/11/15 Status: Ordered metFORMIN 1000 mg oral tablet See Instructions, 1 TABS ORAL BID, # 180 tabs, CARLA, eRx: [facility], 1 TABS ORAL BID Start Date: 05/13/15 Status: Ordered Pravachol 20 mg oral tablet See Instructions, TAKE 1.5 TABS PO QHS, # 135 unknown unit, 5 Refill(s), eRx: [facility] [address]5634, TAKE 1.5 TABS PO QHS Start Date: [...] Office Visit Note CDM Author: Sol Steele SENIOR SOLUTIONS ENGINEER Date: Assessment/Plan 1.Chronic back pain Continue hydrocodone [...]
--- OUTSIDE RECORDS SUMMARY | 2016-10-30 06:10 | XMS REPORT ---
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 Unknown Non Drug Allergy Jul, Unknown SOCIAL HISTORY No smoking Hx information available PLAN OF CARE VITAL SIGNS Height 62 in 2016-08-25 Weight 154 lbs 2016-08-25 BMI 28.16 kg/m2 2016-08-25 Oximetry 96% % 2016-08-25 Heart Rate 70 /min 2016-08-25 Blood pressure systolic 120 mm Hg 2016-08-25 Blood pressure diastolic 80 mm Hg 2016-08-25 MEDICATIONS Medication Instructions Dosage Frequency Start Date End Date Duration Status Lisinopril 40 MG 1 tablet 24h Active Coreg 25 MG Orally bid 2 tablets 12h Active Viagra 50 mg 1 tablet Active Glimepiride 1 MG Orally Once a day 1 tablet with breakfast or the first main meal of the day 24h Active Aspirin 325 MG 1 tablet 24h Active Metformin HCl 1000 mg 1 tablet with meals 12h Active Lortab 7.5-500 mg 1 or 2 tablets Active RESULTS No Results PROCEDURES Procedure Date Ordered Related Diagnosis Body Site Office Visit, Est Pt., Level 3 Aug 25, 2016 IMMUNIZATIONS No Known Immunizations
--- OUTSIDE RECORDS SUMMARY | 2016-10-30 06:11 | XMS REPORT | Referral Summary ---
Author Author [facility] Organization [facility] Address Unknown Phone Unavailable Care Team Providers Care Burglar Alarm Operator Name Role Phone Jose Ramachandran Primary Care Physician [phone] Encounter VC Date(s): 09/03/15 - 09/03/15 [facility] [address] [place] [address]- Discharge Disposition: 01-Home or Self Care Attending Physician: Royal Ramachandran MD Admitting Physician: Royal Ramachandran MD Vital Signs No data available for this section Problem List Condition Effective Dates Status Health [...] 30 tabs, 5 Refill(s), CARLA , eRx: [facility] 31245, TAKE 1 TABLET BY MOUTH EVERY DAY Start Date: 03/29/15 Status: Ordered Glucometer strips (DME) DME Item test blood sugars once daily dx 250.00, See Instructions, # 30 tabs, 11 Refill(s), Pharmacy: [facility] 74215, test blood sugars once daily dx 250.00, Supply Start Date: 02/08/14 Status: Ordered HYDROcodone-acetaminophen 7.5 mg-325 mg oral tablet 1 tabs, Oral, q6hr, as needed for pain, must last 30 days, # 60 tabs, 0 Refill(s ) Start Date: 08/30/15 Status: Ordered lisinopril 40 mg oral tablet See Instructions, TAKE 1 BY MOUTH EVERY DAY., # 90 unknown unit, eRx: [facility] 56891, TAKE 1 BY MOUTH EVERY DAY. Start Date: 05/09/14 Status: Ordered metFORMIN 1000 mg oral tablet 1,000 mg 1 tabs, Oral, BID, # 180 tabs, 0 Refill(s), CARLA, Pharmacy: [facility] 86782, 1 tabs Oral BID Start Date: 02/11/15 Status: Ordered metFORMIN 1000 mg oral tablet See Instructions, 1 TABS ORAL BID, # 180 tabs, 0 Refill(s), CARLA, Pharmacy: [facility] 98975, 1 TABS ORAL BID Start Date: 08/16/15 Status: Ordered Pravachol 20 mg oral tablet See Instructions, TAKE 1.5 TABS PO QHS, # 135 unknown unit, eRx: [facility] [id number], TAKE 1.5 TABS PO QHS Start Date: 07/18/15 Status: Ordered Results No data available for [...] Smoking Status Never smoker Assessment and Plan No data available for this section
--- OUTSIDE RECORDS SUMMARY | 2016-10-30 06:11 | XMS REPORT | Referral Summary ---
Author Author [facility], [facility] Organization [facility] Address Unknown Phone Unavailable Care Team Providers Care Bookstore Manager Name Role Phone Jose Ramachandran Primary Care Physician [phone] Encounter Date(s): 03/26/15 - 03/26/15 [facility] [address] [place] [id number] Discharge Diagnosis: Chronic back pain Discharge Diagnosis: Benign essential hypertension Discharge Diagnosis: Diabetes type 2, controlled Discharge Diagnosis: Dyslipidemia Discharge Diagnosis: Microalbuminuric Diabetic Nephropathy Discharge Diagnosis: Chronic hepatitis C Discharge Diagnosis: Valvular heart disease Discharge Disposition: 01-Home or Self Care Attending Physician: Sol Steele APRN Admitting Physician: Sol Steele APRN Vital Signs Most recent to 1 oldest [Reference Range]: Temperature Tympanic 36.8 degC [36.6-38.1 degC] (03/26/15 1:19 PM) Peripheral Pulse 84 bpm Rate [60-100 bpm] (03/26/15 1:19 PM) Respiratory Rate 18 br/min [14-20 br/min] (03/26/15 1:19 PM) Blood Pressure 124/84 mmHg [90-140/60-90 mmHg] (03/26/15 1:19 PM) Problem List Condition Effective Dates Status [...] 30 tabs, 2 Refill(s), CARLA , eRx: [facility] [id number], TAKE 1 TABLET BY MOUTH EVERY DAY Start Date: 09/26/15 Status: Ordered Glucometer strips (DME) DME Item test blood sugars once daily dx 250.00, See Instructions, # 30 tabs, 11 Refill(s), Pharmacy: [facility] [id number], test blood sugars once daily dx 250.00, Supply Start Date: 02/08/14 Status: Ordered HYDROcodone-acetaminophen 7.5 mg-325 mg oral tablet 1 tabs, Oral, q6hr, as needed for pain, must last 30 days, # 60 tabs, 0 Refill(s ) Start Date: 08/30/15 Status: Ordered lisinopril 40 mg oral tablet See Instructions, TAKE 1 BY MOUTH EVERY DAY., # 90 unknown unit, eRx: [facility] [id number], TAKE 1 BY MOUTH EVERY DAY. Start Date: 05/09/14 Status: Ordered metFORMIN 1000 mg oral tablet 1,000 mg 1 tabs, Oral, BID, # 180 tabs, 0 Refill(s), CARLA, Pharmacy: [facility] [id number], 1 tabs Oral BID Start Date: 02/11/15 Status: Ordered metFORMIN 1000 mg oral tablet See Instructions, 1 TABS ORAL BID, # 180 tabs, 0 Refill(s), CARLA, Pharmacy: [facility] [address], 1 TABS ORAL BID Start Date: 08/16/15 Status: Ordered Pravachol 20 mg oral tablet See Instructions, TAKE 1.5 TABS PO QHS, # 135 unknown unit, eRx: [facility] [address]1207, TAKE 1.5 TABS PO QHS Start Date: [...] and Plan Extracted from: Title: Office Visit Note-CDM Author: Sol Steele LABORER ELECTROPLATING Date: 03/26/15 Assessment/Plan 1.Diabetes type 2, controlled CDM report card completed and reviewed with patient. Last labs reviewed with patient. Recommendations discussed. Copy provided. Plan recheck in 3 months with hemoglobin A1c, fasting lipids, CMP and PSA. Flu shot this fall. Recommend diabetic eye exam. Recommend he discuss colonoscopy with Dr. Valencia. Ordered: Office Visit Level 4 Est 90328 Benign essential hypertension Continue same. Ordered: Office Visit Level 4 Est 02773 Chronic back pain Continue same. Refill provided for [place]. Ordered: Office Visit Level 4 Est 51745 Chronic hepatitis C Continue to follow with Dr. Valencia. Ordered: Office Visit Level 4 Est 67933 Dyslipidemia Continue statin. At goal. Ordered: Office Visit Level 4 Est 90391 Microalbuminuric Diabetic Nephropathy Continue to follow with Dr. Eddy Chris. Ordered: Office Visit Level 4 Est 18960 Valvular heart disease Stable. Ordered: Office Visit Level 4 Est 78595 Orders: HYDROcodone-acetaminophen, 1 tabs, Oral, q6hr, as needed for pain, must last 30 days, # 60 tabs, 0 Refill(s)
--- OUTSIDE RECORDS SUMMARY | 2016-10-30 06:11 | XMS REPORT | Continuity of Care Document ---
Author Author Sol [facility] Ambulatory Address [address] [place] [address] [place] [address] Phone Care Team Providers Care Language Interpreter Name Role Phone David Mcdaniel PP Unavailable Payers Payer name Insurance type Covered democrat ID Authorization(s) Unknown Problems Condition Effective Dates (start - stop) Clinical Status Diabetic Neuropathy - *Chronic Chronic hepatitis c without mention of hepatic coma - *Chronic Cardiomyopathy, Other Primary - *Chronic Hypertension, Benign - *Chronic Other and unspecified hyperlipidemia - *Chronic Proteinuria - *Chronic Backache - *Controlled HEPATITIS C CARRIER - DMII WO CMP UNCNTRLD - DMII RENAL UNCNTRLD - DMI NEURO UNCNTRLD - BENIGN HYPERTENSION - HYPERTENSION NOS - PRIM CARDIOMYOPATHY NEC - CHF NOS - IMPOTENCE, ORGANIC ORIGN - EDEMA - Chronic hepatitis c without mention of hepatic coma - *Chronic Acquired hemolytic anemia, unspecified - *Acute Rash and other nonspecific skin eruption - *Worse Diabetes Mellitus, Adult Onset, Uncontrolled - *Chronic Hypertension, Benign - *Chronic Cardiomyopathy, Other Primary - *Chronic Chronic hepatitis c without mention of hepatic coma - *Chronic Proteinuria - *Chronic Diabetic neuropathy, type II diabetes mellitus - *Chronic Polyneuropathy in diabetes - *Chronic Chronic hepatitis c without mention of hepatic coma - *Chronic Cough - *Acute Cardiomyopathy, Other Primary - *Chronic Chronic hepatitis c without mention of hepatic coma - *Chronic Hypertension, Benign - Chronic Diabetes Mellitus, Adult Onset, Uncontrolled - Chronic Other and unspecified hyperlipidemia - Chronic Right Heart Failure - Chronic Cardiomyopathy, Other Primary - Chronic Chronic hepatitis c without mention of hepatic coma - Chronic Hypertension, Benign - *Chronic Diabetes Mellitus, Adult Onset, Uncontrolled - *Chronic Other and unspecified hyperlipidemia - *Chronic Right Heart Failure - *Chronic Hypertension, Benign - *Controlled Right Heart Failure - *Chronic Cardiomyopathy, Other Primary - *Chronic Chronic hepatitis c without mention of hepatic coma - *Chronic Uncontrolled diabetes mellitus with microalbuminur - *Chronic Proteinuria - *Chronic Other and unspecified hyperlipidemia - *Chronic Chronic hepatitis c without mention of hepatic coma - *Chronic Rash - Mild Chronic hepatitis c without mention of hepatic coma - *Chronic Family History Family Member Diagnosis Age At Onset Status Unknown Social History Social History Element Description Quantity Unknown Allergies, Adverse Reactions, Alerts Substance Reaction Severity Status Unknown Medications Medication Instructions Dosage Effective Dates (start - stop) Status diltiazem CD 120 mg capsule,extended release 24 hr Take 1 tablet by mouth every day. - Active aspirin 325 mg tablet take 1 tablet (325MG) by oral route every day 325 MG - Active Contour Test Strips TEST BLOOD SUGARS TWICE DAILY - Active ribavirin 200 mg tablet take 3 tablet (600MG) by oral route 2 times every day 600 MG - Active Incivek 375 mg tablet take 2 tablet (750MG) by oral route 3 times every day 750 MG - Active cetirizine 10 mg tablet take 1 tablet (10MG) by oral route every day as needed 10 MG - Active metformin 1,000 mg tablet Take 1 tablet by mouth twice a day. - Active glimepiride 1 mg tablet take 1 tablet (1MG) by oral route every day 1 MG - Active lisinopril 40 mg tablet Take 1 by mouth every day. - Active Cozaar 100 mg tablet Take 1 by mouth every day. - Active hydrocodone 7.5 mg-acetaminophen 325 mg tablet 1-2 tablets by mouth every 4-6 hrs prn pain - Active pravastatin 20 mg tablet take 1.5 tabs po qhs - Active Immunizations Vaccine Date Status Comments hep A and Hep B (adult) completed - Completed reason: previously given hep A and Hep B (adult) completed - Completed reason: public agency flu (split) (3 yrs or older) completed - Completed reason: previously given flu (split) (3 yrs or older) completed - Completed reason: previously given flu (split) (3 yrs or older) completed - Completed reason: previously given pneumo (2 yrs or older) (PPV23) completed - Completed reason: previously given Tdap (Boostrix r) completed Flu (split) (3 yrs or older) completed Hep B (adult) 1ml completed Results Test Name Date and Time Measure Units Reference Range Abnormal Flag Comments Panel Description: CBC WBC 15:07:00 8.2 K/uL 4.8-10.8 RBC 15:07:00 5.56 M/uL 4.60-6.20 HGB 15:07:00 15.4 g/dl 14.0-18.0 HCT 15:07:00 46.4 % 42.0-52.0 MCV 15:07:00 83.5 fL 82.0-99.0 MCH 15:07:00 27.7 pg 27.0-32.0 MCHC 15:07:00 33.2 g/dL 32.0-36.0 RDW 15:07:00 13.0 % 11.5-14.5 MPV 15:07:00 11.7 fL 8.8-14.8 Platelet Count 15:07:00 223 K/uL 150-400 Immature Granulocytes 15:07:00 0.1 % 0.0-1.0 Absolute Neutrophils 15:07:00 4.05 THOUS 1.90-7.00 Absolute Lymphocytes 15:07:00 2.70 THOUS 0.80-3.30 Absolute Monocytes 15:07:00 1.38 THOUS 0.30-1.00 H Absolute Eosinophils 15:07:00 0.07 THOUS 0.00-0.50 Absolute Basophils 15:07:00 0.02 THOUS 0.00-0.20 Neutrophils 15:07:00 49 % 51-75 L Lymphocytes 15:07:00 33 % 20-46 Monocytes 15:07:00 17 % 4-11 H Eosinophils 15:07:00 1 % 0-4 Basophils 15:07:00 0 % 0-2 Testing performed at [facility] Reference Lab [address] [place] [address] Senior Technical Support Engineer Xiang Bernal MD Panel Description: HCV RNA by PCR-QT-AMS Hepatitis C viral RNA 15:07:00 [id number] IU/mL HCV Log10 15:07:00 6.6 This test is for monitoring of HCV positive patients only andshould not be used as a screening test for HCV infection.Testing performed at [facility] Reference [facility] [address] [place] [address] Senior Technical Support Engineer Xiang Bernal MD Panel Description: Hemoglobin T1u-SLE Hemoglobin A1C 15:07:00 7.0 % 4.1-5.6 H Testing performed at [facility] Reference Lab [address] [place] [address] Senior Technical Support Engineer Xiang Bernal MD Panel Description: EAG Calculation-[facility] Estimated Average Glucose 15:07:00 154.2 mg/dL Testing performed at [facility] Reference Lab [address] [address] Senior Technical Support Engineer Xiang Bernal MD Panel Description: Chemistry Profile Glucose 15:07:00 97 mg/dL 70-99 BUN 15:07:00 23 mg/dL 8-26 Creatinine 15:07:00 1.12 mg/dL 0.72-1.25 Calcium 15:07:00 9.7 mg/dL 8.9-10.5 Sodium 15:07:00 141 mEq/L 135-144 Potassium 15:07:00 4.9 mEq/L 3.5-5.2 Chloride 15:07:00 103 mEq/L 99-111 CO2 15:07:00 29 mEq/L 23-31 Albumin 15:07:00 3.9 g/dL 3.5-5.0 Bilirubin Total 15:07:00 0.4 mg/dL 0.2-1.2 Alkaline Phosphatase 15:07:00 86 U/L 40-150 Protein 15:07:00 7.8 g/dL 6.4-8.3 ALT (SGPT) 15:07:00 59 U/L 0-55 H AST (SGOT) 15:07:00 59 U/L 5-34 H Anion Gap 15:07:00 9 3-20 Globulin 15:07:00 3.9 g/dL 1.8-4.0 Testing performed at [facility] Reference Lab [address] [place] [address] Senior Technical Support Engineer Xiang Bernal MD Panel Description: TSH-AMS TSH 15:07:00 0.88 uIU/mL 0.35-4.94 Testing performed at [facility] Reference Lab [address] [address] Senior Technical Support Engineer Xiang Bernal MD Panel Description: EGFR-AMS eGFR 15:07:00 >60 mL/min >60 Multiply eGFR results by 1.21 for race.Testing performed at [facility] Reference Lab [address] [address] Senior Technical Support Engineer Xiang Bernal MD Panel Description: Direct Bilirubin Bilirubin Direct 15:07:00 0.2 mg/dL 0.0-0.5 Testing performed at [facility] Reference Lab [address] [address] Senior Technical Support Engineer Xiang Bernal MD Panel Description: LDL Direct Measurement-[facility] LDL Direct 15:07:00 95 mg/dL 0-129 Testing performed at [facility] Reference Lab [address] [address] Senior Technical Support Engineer Xiang Bernal MD Panel Description: Microalbumin/Creatinine Ratio-[facility] Creatinine mg/dL, Urine 15:07:00 47 mg/dL Albumin mg/dL, Urine 15:07:00 32.3 mg/dL 0.0-1.7 H Alb/Creat Ratio, Urine 15:07:00 687.2 mg/g 0.0-29.0 H Testing performed at [facility] Reference Lab [address] [address] Senior Technical Support Engineer Xiang Bernal MD Vital Signs Date / Time: Height Weight Pulse Rate Blood Pressure Temperature /14:20:00 61.00 in 155.00 lbs 80 /min 130/80 mm[Hg] 97.5 F Procedures Procedure Date Unknown Encounters Encounter Location Date Patient Visit [facility] Patient Visit Conversion Patient Visit [facility] Patient Visit [facility] Patient Visit [facility] Patient Visit [facility] Patient Visit [facility] Patient Visit [facility] Patient Visit [facility] Patient Visit [facility] Patient Visit [facility] Patient Visit [facility] Patient Visit [facility] Patient Visit [facility] Patient Visit [facility] Patient Visit [facility] Patient Visit [facility] Patient Visit [facility] Mur Day Surg Advance Directives Directive Effective Date Unknown
--- OUTSIDE RECORDS SUMMARY | 2016-10-30 06:11 | XMS REPORT ---
Author Author Marycarmen Powell Organization [facility] Address [address] [place] [address] Care Team Providers Care Massage Therapy Instructor Name Role Phone Marycarmen Powell Unavailable [phone] PROBLEMS Type Condition ICD9-CM Code IIL39-EP Code Onset Dates Condition Status SNOMED Code Problem S/P Aortic Valve Replacement V43.3 Active 66670946 Problem Congenital stenosis of pulmonary valve 746.02 Active 99069143 Problem Hypertension, Unspecified 401.9 Active 57564951 Problem Congestive Heart Failure, Unspecified 428.0 Active 06050326 Problem Pulmonary Hypertension, Chronic, Unspecified 416.9 Active 27502799 Problem Hyperlipidemia 272.4 Active 35906443 ALLERGIES Unknown Allergies SOCIAL HISTORY No smoking Hx information available PLAN OF CARE VITAL SIGNS MEDICATIONS Unknown Medications RESULTS No Results PROCEDURES No Known procedures IMMUNIZATIONS No Known Immunizations
--- OUTSIDE RECORDS SUMMARY | 2016-10-30 06:11 | XMS REPORT | Referral Summary ---
Author Author [facility], [facility] Organization [facility] Address Unknown Phone Unavailable Care Team Providers Care Project Manager Entertainment And Media Name Role Phone Jose Ramachandran Primary Care Physician [phone] Encounter Date(s): 07/08/15 - 07/08/15 [facility] [address] [place] [address]- Discharge Diagnosis: Benign essential hypertension Discharge Diagnosis: Valvular heart disease Discharge Diagnosis: Chronic hepatitis C Discharge Diagnosis: GERD without esophagitis Discharge Diagnosis: Dyslipidemia Discharge Diagnosis: Microalbuminuric Diabetic Nephropathy Discharge Diagnosis: Chronic back pain Discharge Disposition: 01-Home or Self Care Attending Physician: Sol Steele APRN Admitting Physician: Sol Steele APRN Vital Signs Most recent to 1 oldest [Reference Range]: Temperature Tympanic 36.3 degC [36.6-38.1 degC] *LOW* (07/08/15 1:19 PM) Peripheral Pulse 72 bpm Rate [60-100 bpm] (07/08/15 1:19 PM) Respiratory Rate 18 br/min [14-20 br/min] (07/08/15 1:19 PM) Blood Pressure 124/86 mmHg [90-140/60-90 mmHg] (07/08/15 1:19 PM) Problem List Condition Effective Dates [...] 30 tabs, 5 Refill(s), CARLA , eRx: [facility] [id number], TAKE 1 TABLET BY MOUTH EVERY DAY Start Date: 03/29/15 Status: Ordered Glucometer strips (DME) DME Item test blood sugars once daily dx 250.00, See Instructions, # 30 tabs, 11 Refill(s), Pharmacy: [facility] [id number], test blood sugars once daily dx 250.00, Supply Start Date: 02/08/14 Status: Ordered HYDROcodone-acetaminophen 7.5 mg-325 mg oral tablet 1 tabs, Oral, q6hr, as needed for pain, must last 30 days, # 60 tabs, 0 Refill(s ) Start Date: 05/30/15 Status: Ordered lisinopril 40 mg oral tablet See Instructions, TAKE 1 BY MOUTH EVERY DAY., # 90 unknown unit, eRx: [facility] [id number], TAKE 1 BY MOUTH EVERY DAY. Start Date: 05/09/14 Status: Ordered metFORMIN 1000 mg oral tablet 1,000 mg 1 tabs, Oral, BID, # 180 tabs, 0 Refill(s), CARLA, Pharmacy: [facility] [id number], 1 tabs Oral BID Start Date: 02/11/15 Status: Ordered metFORMIN 1000 mg oral tablet See Instructions, 1 TABS ORAL BID, # 180 tabs, CARLA, eRx: [facility] [id number], 1 TABS ORAL BID Start Date: 05/13/15 Status: Ordered Pravachol 20 mg oral tablet See Instructions, TAKE 1.5 TABS PO QHS, # 135 unknown unit, 5 Refill(s), eRx: [facility] [address]23, TAKE 1.5 TABS PO QHS Start Date: [...] Title: Office Visit Note-CDM Author: Sol Steele APRN Date: Assessment/Plan 1.Chronic back pain Discussed with patient importance of doing some core exercises to help strengthen the back and abdomen. Discussed some stretching exercises he can do at home. Recommend he utilizes Tylenol at bedtime to see if that helps with his achiness in the mornings. Continue [place] on an as- needed basis. One per day. Heat and muscle rubs may also be of benefit. Ordered: Office Visit Level 4 Est 11051 2.Benign essential hypertension Continue same. Encourage patient to check it outside the office. Goal blood pressures less than 140/90. Ordered: Office Visit Level 4 Est 73571 3.Chronic hepatitis C Patient has recheck of his hepatitis C viral load at the end of the month. Initial viral load was negative after treatment with Harvoni. Ordered: Office Visit Level 4 Est 43404 4.Dyslipidemia Continue statin. Encouraged healthy eating and exercise and weight loss. Ordered: Office Visit Level 4 Est 94123 5.GERD without esophagitis Continue same. 6.Microalbuminuric Diabetic Nephropathy Continue same. Patient to return to the office for hemoglobin A1c lipids and chemistry later this week. Valvular heart disease Continue to follow with cardiology. Noted an echo reviewed. Discussed need for new PCP. Patient would like to continue to follow with me. Requested that he make his next three-month follow-up appointment with Dr. Ramachandran to establish care. Patient voices understanding.
--- OUTSIDE RECORDS SUMMARY | 2016-10-30 06:11 | XMS REPORT | Continuity of Care Document ---
Author Author [facility] Organization [facility] Address Unknown Phone Unavailable Allergies Active Description Code Type Severity Reaction Onset Reported/Identified Relationship to Patient Clinical Status Yes No Known Allergies NKMA N/A N/A 12/29/2013 Medications Problems Procedures Results Test Result Range Comprehensive Metabolic Panel (CMP) - 08/26/16 14:00 Albumin 4.0 g/dL 3.5-5.0 Alkaline Phosphatase 93 U/L 40-150 ALT (SGPT) 17 U/L 0-55 Anion Gap 8 NA 3-20 AST (SGOT) 23 U/L 5-34 Bilirubin Total 0.2 mg/dL 0.2-1.2 BUN 18 mg/dL 8-26 Calcium 9.4 mg/dL 8.9-10.5 Chloride 107 mEq/L 99-111 CO2 26 mEq/L 23-31 Creatinine 0.93 mg/dL 0.72-1.25 Globulin 3.6 g/dL 1.8-4.0 Glucose 76 mg/dL 70-99 Potassium 4.9 mEq/L 3.5-5.2 Protein 7.6 g/dL 6.1-7.7 Sodium 141 mEq/L 135-144 eGFR - 08/26/16 14:00 eGFR >60 mL/min >60 Hemoglobin A1C - 08/26/16 14:00 Hemoglobin A1C 6.7 % 4.1-5.6 Estimated Average Glucose - 08/26/16 14:00 Estimated Average Glucose 145.6 mg/dL Encounters ACCT No. Visit Date/Time Discharge Status Pt. Type Provider Facility Loc./Unit Complaint [id number] 09/06/2013 14:12:00 09/06/2013 23 :59:59 CLS Outpatient
--- OUTSIDE RECORDS SUMMARY | 2016-10-30 06:12 | XMS REPORT | Referral Summary ---
Author Author [facility], [facility] Organization [facility] Address Unknown Phone Unavailable Care Team Providers Care Public Utilities Sales Representative Name Role Phone Anel Combs Primary Care Physician [phone] Encounter Date(s): 12/04/14 - 12/04/14 [facility] [address] [place] [id number] Discharge Diagnosis: Chronic hepatitis C Discharge Diagnosis: [...] 30 tabs, 5 Refill(s), CARLA , eRx: [facility] [address], TAKE 1 TABLET BY MOUTH EVERY DAY Start Date: 03/29/15 Status: Ordered Glucometer strips (DME) DME Item test blood sugars once daily dx 250.00, See Instructions, # 30 tabs, 11 Refill(s), Pharmacy: [facility] [id number], test blood sugars once daily dx 250.00, Supply Start Date: 02/08/14 Status: Ordered HYDROcodone-acetaminophen 7.5 mg-325 mg oral tablet 1 tabs, Oral, q6hr, as needed for pain, must last 30 days, # 60 tabs, 0 Refill(s ) Start Date: 05/30/15 Status: Ordered lisinopril 40 mg oral tablet See Instructions, TAKE 1 BY MOUTH EVERY DAY., # 90 unknown unit, eRx: [facility] [id number], TAKE 1 BY MOUTH EVERY DAY. Start Date: 05/09/14 Status: Ordered metFORMIN 1000 mg oral tablet 1,000 mg 1 tabs, Oral, BID, # 180 tabs, 0 Refill(s), CARLA, Pharmacy: [facility] [id number], 1 tabs Oral BID Start Date: 02/11/15 Status: Ordered metFORMIN 1000 mg oral tablet See Instructions, 1 TABS ORAL BID, # 180 tabs, CARLA, eRx: [facility] [address], 1 TABS ORAL BID Start Date: 05/13/15 Status: Ordered Pravachol 20 mg oral tablet See Instructions, TAKE 1.5 TABS PO QHS, # 135 unknown unit, 5 Refill(s), eRx: [facility] [address], TAKE 1.5 TABS PO QHS Start Date: [...] Office Visit Note CDM Author: Sol Steele CREDIT ADMINISTRATION MANAGER Date: Assessment/Plan 1.Chronic back pain Continue hydrocodone [...]
--- OUTSIDE RECORDS SUMMARY | 2016-10-30 06:12 | XMS REPORT | Referral Summary ---
Author Author [facility], [facility] Organization [facility] Address Unknown Phone Unavailable Care Team Providers Care Stope Miner Name Role Phone Anel Combs Primary Care Physician [phone] Encounter Date(s): 12/04/14 - 12/04/14 [facility] [address] [place] [address] Discharge Diagnosis: Chronic hepatitis C [...] 30 tabs, 5 Refill(s), CARLA , eRx: [facility] [id number], TAKE 1 TABLET BY MOUTH EVERY DAY Start Date: 03/29/15 Status: Ordered Glucometer strips (DME) DME Item test blood sugars once daily dx 250.00, See Instructions, # 30 tabs, 11 Refill(s), Pharmacy: [facility] [id number], test blood sugars once daily dx 250.00, Supply Start Date: 02/08/14 Status: Ordered HYDROcodone-acetaminophen 7.5 mg-325 mg oral tablet 1 tabs, Oral, q6hr, as needed for pain, must last 30 days, # 60 tabs, 0 Refill(s ) Start Date: 05/30/15 Status: Ordered lisinopril 40 mg oral tablet See Instructions, TAKE 1 BY MOUTH EVERY DAY., # 90 unknown unit, eRx: [facility] [id number], TAKE 1 BY MOUTH EVERY DAY. Start Date: 05/09/14 Status: Ordered metFORMIN 1000 mg oral tablet 1,000 mg 1 tabs, Oral, BID, # 180 tabs, 0 Refill(s), CARLA, Pharmacy: [facility] [id number], 1 tabs Oral BID Start Date: 02/11/15 Status: Ordered metFORMIN 1000 mg oral tablet See Instructions, 1 TABS ORAL BID, # 180 tabs, CARLA, eRx: [facility] [address]23, 1 TABS ORAL BID Start Date: 05/13/15 Status: Ordered Pravachol 20 mg oral tablet See Instructions, TAKE 1.5 TABS PO QHS, # 135 unknown unit, 5 Refill(s), eRx: [facility] [address]4584, TAKE 1.5 TABS PO QHS Start Date: [...] Office Visit Note CDM Author: Sol Steele SUPERINTENDENT MENAGERIE Date: Assessment/Plan 1.Chronic back pain Continue hydrocodone [...]
--- OUTSIDE RECORDS SUMMARY | 2016-10-30 06:12 | XMS REPORT | Referral Summary ---
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 Discharge Diagnosis: Cardiomyopathy, hypertrophic Discharge Diagnosis: GERD without esophagitis Discharge Diagnosis: Laryngitis Discharge Disposition: 01-Home or Self Care Attending Physician: Sol Steele APRN Admitting Physician: Sol Steele APRN Vital Signs Most recent to 1 oldest [Reference Range]: Temperature Tympanic 35.9 degC [36.6-38.1 degC] *LOW* (08/26/16 1:17 PM) Peripheral Pulse 76 bpm Rate [60-100 bpm] (08/26/16 1:17 PM) Respiratory Rate 16 br/min [14-20 br/min] (08/26/16 1:17 PM) Blood Pressure 146/94 mmHg [90-140/60-90 mmHg] *HI* (08/26/16 1:17 PM) Problem List Condition Effective Dates Status Health Status Informant Valvular heart 05/31/14 Active disease(Confirmed)1 Benign essential Active hypertension (disorder)(Confirmed ) PRIM CARDIOMYOPATHY < 06/01/14 Resolved NEC(Confirmed)2 Chronic hepatitis C Active (disorder)(Confirmed ) Congestive heart Resolved failure (disorder)(Confirmed )3 Microalbuminuric < 03/06/14 Resolved Diabetic Nephropathy(Confirme d) congenital Active HD(Confirmed) ECHO-ASYMETIC SEVERE 09/13/09 Active LVH L-VENTRICAL HYPODENSISI-EF 35%(Confirmed) Asymmetrical septal Active hypertrophy(Confirme d) Dyslipidemia(Confirm < 03/06/14 Resolved ed) Pedal Active Edema(Confirmed) GERD without Active esophagitis(Confirme d) 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 moderate aortic [...] BID, # 40 tabs, 0 Refill(s), Pharmacy: [facility] 64347, 1 tabs Oral BID Start Date: 03/09/16 Status: Ordered glimepiride 1 mg oral tablet See Instructions, TAKE 1 TABLET BY MOUTH EVERY DAY, # 30 tabs, 5 Refill(s), CARLA , eRx: [facility] 09277, TAKE 1 TABLET BY MOUTH EVERY DAY Start Date: 03/31/16 Status: Ordered Glucometer strips (DME) DME Item test blood sugars once daily dx 250.00, See Instructions, # 30 tabs, 11 Refill(s), Pharmacy: [facility] 82504, test blood sugars once daily dx 250.00, Supply Start Date: 02/08/14 Status: Ordered Glucometer (DME) DME Item [facility] trueresult glucometer test BS once daily DX: E11.9, See Instructions, # 1 Each, 0 Refill(s), Pharmacy: [facility] 53831, [facility] trueresult glucometer; test BS once daily; DX: E11.9, Supply Start Date: 04/14/16 Status: Ordered Glucometer strips (DME) DME Item [facility] TRUERESULT TEST STRIPS TEST BS ONCE DAILY DX: E11.9, See Instructions, # 100 Each, 11 Refill(s), Pharmacy: [facility] 41875, [facility] TRUERESULT TEST STRIPS TEST BS ONCE DAILY ; DX: E11.9, Supply Start Date: 04/14/16 Status: Ordered HYDROcodone-acetaminophen 7.5 mg-325 mg oral tablet 1 tabs, Oral, q6hr, as needed for pain, must last 30 days, # 60 tabs, 0 Refill(s ) Start Date: 08/26/16 Status: Ordered lisinopril 40 mg oral tablet See Instructions, TAKE 1 BY MOUTH EVERY DAY., # 90 unknown unit, eRx: [facility] 60688, TAKE 1 BY MOUTH EVERY DAY. Start Date: 05/09/14 Status: Ordered metFORMIN 1000 mg oral tablet 1,000 mg 1 tabs, Oral, BID, # 180 tabs, 3 Refill(s), CARLA, Pharmacy: [facility] 85019, does not need at this time, 1 tabs Oral BID Start Date: 05/28/16 Status: Ordered Pravachol 20 mg oral tablet See Instructions, TAKE 1.5 TABS PO QHS, # 135 unknown unit, eRx: [facility] 32953, TAKE 1.5 TABS PO QHS Start Date: 07/18/15 Status: Ordered PriLOSEC 40 mg oral delayed release capsule 40 mg 1 caps, Oral, Daily, # 30 caps, 0 Refill(s), Pharmacy: [facility] 95212, 1 caps Oral Daily Start Date: 08/05/16 Status: Ordered Results Chemistry Most recent to 1 oldest [Reference Range]: Sodium Lvl [135-144 141 mEq/L mEq/L] (08/26/16 2:00 PM) Potassium Lvl 4.9 mEq/L [3.5-5.2 mEq/L] (08/26/16 2:00 PM) Chloride [99-111 107 mEq/L mEq/L] (08/26/16 2:00 PM) CO2 [23-31 mEq/L] 26 mEq/L (08/26/16 2:00 PM) AGAP [3-20] 8 (08/26/16 2:00 PM) BUN [8-26 mg/dL] 18 mg/dL (08/26/16 2:00 PM) Glucose Lvl [70-99 76 mg/dL mg/dL] (08/26/16 2:00 PM) Creatinine Lvl 0.93 mg/dL [0.72-1.25 mg/dL] (08/26/16 2:00 PM) eGFR [>60 mL/min] >60 mL/min 1 (08/26/16 2:00 PM) Calcium Lvl 9.4 mg/dL [8.9-10.5 mg/dL] (08/26/16 2:00 PM) Albumin Lvl [3.5-5.0 4.0 gm/dL gm/dL] (08/26/16 2:00 PM) Total Protein 7.6 gm/dL [6.1-7.7 gm/dL] (08/26/16 2:00 PM) Globulin [1.8-4.0 3.6 gm/dL gm/dL] (08/26/16 2:00 PM) ALT [0-55 U/L] 17 U/L (08/26/16 2:00 PM) AST [5-34 U/L] 23 U/L (08/26/16 2:00 PM) Alk Phos [40-150 93 U/L U/L] (08/26/16 2:00 PM) Bili Total [0.2-1.2 0.2 mg/dL mg/dL] (08/26/16 2:00 PM) Hgb A1c [4.1-5.6 %] 6.7 % *HI* (08/26/16 2:00 PM) eAvg Glucose 145.6 mg/dL (08/26/16 2:00 PM) 1Result Comment: Multiply eGFR results by 1.21 for race. Immunizations Given and Recorded Vaccine Date Status Refusal Reason hepatitis A-hepatitis B vaccine 12/14/11 Given hepatitis A-hepatitis B vaccine 10/12/11 Given hepatitis B adult vaccine 11/17/12 Given influenza virus vaccine, inactivated 04/14/16 Given influenza virus vaccine, inactivated 09/03/15 Given influenza virus vaccine, inactivated 05/30/15 Given influenza virus vaccine, inactivated 05/01/14 Recorded influenza virus vaccine, live 04/13/13 Given influenza virus vaccine, live 07/02/11 Given influenza virus vaccine, live 05/06/09 Given influenza virus vaccine, live 06/19/08 Given pneumococcal 23-polyvalent vaccine 07/02/11 Recorded tetanus/diphtheria/pertussis, acel(Tdap) 11/03/12 Recorded varicella virus vaccine 11/03/12 Recorded Procedures Procedure Date Related Diagnosis Body Site Echocardiogram 2012 Gall Bladder 05/2010 Heart valve replacement, 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 Blood pressures over allthe last 10 office visitat goal. No changes today. I encouraged him to get a cuff again at home to monitor his blood pressures periodically. I would like to see his blood pressures less than 140/90. CDM report card completed and reviewed with patient. Last labs reviewed with patient. Recommendations discussed. Copy provided. Plan follow-up in 3 months. Labs today. We'll notify him of results and any changes. Ordered: Office Visit Level 4 Est 37477 2.Controlled diabetes mellitus with microalbuminuria Check hemoglobin A1c today. Continuecurrent medications without change. Tinea monitor blood sugars periodically. Encouraged healthy diet and continued exercise. Ordered: Office Visit Level 4 Est 58451 3.Mixed hyperlipidemia Continue statin. Well controlled on last labs. Ordered: Office Visit Level 4 Est 04788 4.Cardiomyopathy, hypertrophic Currently asymptomatic. Continue to follow with Dr. Lowe yearly. He develops any symptoms let us now. Ordered: Office Visit Level 4 Est 66295 5.Lumbago without sciatica Continue Force one to 2 per day as needed. Patient's uses appropriate and consistent. Ordered: Office Visit Level 4 Est 30388 6.GERD without esophagitis Well controlled with current regimen. No changes. Ordered: Office Visit Level 4 Est 28067 7.Laryngitis Resolved. Ordered: Office Visit Level 4 Est 33478 Discussed screening colonoscopy. Patient voices he has never had one. We' ll set him up to discuss pros and cons of colonoscopy with Dr. Adair.
--- OUTSIDE RECORDS SUMMARY | 2016-10-30 06:12 | XMS REPORT | Referral Summary ---
Author Author [facility], [facility] Organization [facility] Address Unknown Phone Unavailable Care Team Providers Care Java Sdet Name Role Phone Anel Combs Primary Care Physician [phone] Encounter Date(s): 12/04/14 - 12/04/14 [facility] [address] [place] [address] Discharge Diagnosis: Chronic hepatitis C [...] 30 tabs, 5 Refill(s), CARLA , eRx: [facility] 83656, TAKE 1 TABLET BY MOUTH EVERY DAY Start Date: 03/29/15 Status: Ordered Glucometer strips (DME) DME Item test blood sugars once daily dx 250.00, See Instructions, # 30 tabs, 11 Refill(s), Pharmacy: [facility] 27449, test blood sugars once daily dx 250.00, Supply Start Date: 02/08/14 Status: Ordered HYDROcodone-acetaminophen 7.5 mg-325 mg oral tablet 1 tabs, Oral, q6hr, as needed for pain, must last 30 days, # 60 tabs, 0 Refill(s ) Start Date: 05/30/15 Status: Ordered lisinopril 40 mg oral tablet See Instructions, TAKE 1 BY MOUTH EVERY DAY., # 90 unknown unit, eRx: [facility] 59383, TAKE 1 BY MOUTH EVERY DAY. Start Date: 05/09/14 Status: Ordered metFORMIN 1000 mg oral tablet 1,000 mg 1 tabs, Oral, BID, # 180 tabs, 0 Refill(s), CARLA, Pharmacy: [facility] 02239, 1 tabs Oral BID Start Date: 02/11/15 Status: Ordered metFORMIN 1000 mg oral tablet See Instructions, 1 TABS ORAL BID, # 180 tabs, CARLA, eRx: [facility] 10378, 1 TABS ORAL BID Start Date: 05/13/15 Status: Ordered Pravachol 20 mg oral tablet See Instructions, TAKE 1.5 TABS PO QHS, # 135 unknown unit, 5 Refill(s), eRx: [facility] 91409, TAKE 1.5 TABS PO QHS Start Date: [...] Office Visit Note CDM Author: Sol Steele ARMATURE AND ROTOR WINDER Date: Assessment/Plan 1.Chronic back pain Continue hydrocodone [...]
--- OUTSIDE RECORDS SUMMARY | 2016-10-30 06:12 | XMS REPORT | Referral Summary ---
Author Author [facility], [facility] Organization [facility] Address Unknown Phone Unavailable Care Team Providers Care Cane Feeder Name Role Phone Anel Combs Primary Care Physician [phone] Encounter VC Date(s): 05/10/15 - 05/10/15 [facility] [address] [place] [address] Discharge Diagnosis: Acute URI Discharge Disposition: 01-Home or Self Care Attending Physician: Sol Steele APRN Admitting Physician: Sol Steele APRN Vital Signs Most recent to 1 oldest [Reference Range]: Temperature Tympanic 36.3 degC [36.6-38.1 degC] *LOW* (05/10/15 8:52 AM) Peripheral Pulse 76 bpm Rate [60-100 bpm] (05/10/15 8:52 AM) Blood Pressure 118/82 mmHg [90-140/60-90 mmHg] (05/10/15 8:52 AM) Problem List Condition Effective Dates Status [...] 30 tabs, 5 Refill(s), CARLA , eRx: [facility] 54453, TAKE 1 TABLET BY MOUTH EVERY DAY Start Date: 03/29/15 Status: Ordered Glucometer strips (DME) DME Item test blood sugars once daily dx 250.00, See Instructions, # 30 tabs, 11 Refill(s), Pharmacy: [facility] 44757, test blood sugars once daily dx 250.00, Supply Start Date: 02/08/14 Status: Ordered HYDROcodone-acetaminophen 7.5 mg-325 mg oral tablet 1 tabs, Oral, q6hr, as needed for pain, must last 30 days, # 60 tabs, 0 Refill(s ) Start Date: 03/26/15 Status: Ordered lisinopril 40 mg oral tablet See Instructions, TAKE 1 BY MOUTH EVERY DAY., # 90 unknown unit, eRx: [facility] 34133, TAKE 1 BY MOUTH EVERY DAY. Start Date: 05/09/14 Status: Ordered metFORMIN 1000 mg oral tablet 1,000 mg 1 tabs, Oral, BID, # 180 tabs, 0 Refill(s), CARLA, Pharmacy: [facility] 52975, 1 tabs Oral BID Start Date: 02/11/15 Status: Ordered Pravachol 20 mg oral tablet See Instructions, TAKE 1.5 TABS PO QHS, # 135 unknown unit, 5 Refill(s), eRx: [facility] 16125, TAKE 1.5 TABS PO QHS Start Date: 06/07/14 Status: Ordered Promethazine with Codeine 6.25 mg-10 mg/5 mL oral syrup 5 mL, Oral, q6hr, as needed for cough, may cause drowsiness, X 7 days, # 140 mL , 0 Refill(s) Start Date: 05/10/15 Stop Date: 05/17/15 Status: Ordered Results No data available for [...] Title: Office Visit Note-URI Author: Sol Steele GUT SORTER Date: Assessment/Plan 1.Acute URI Discussed with patient this is likely viral in nature. The clinical history is most compatible with that of a viral syndrome. Clinical examination does not suggest sinusitis, pneumonia, meningitis or streptococcal pharyngitis. Increase fluid intake. Enc good handwashing. Recommend OTC Mucinex , Afrin nasal spray (for no more than 5 days), per package instructions as need for cough/congestion. Recommend OTC Tylenol and/or Ibuprofen per package [...] and that followup is of vital importance. Cough syrup every 6 hrs as needed. May cause drowsiness. PCP change to Dr. Ramachandran. Ordered: Office Visit Level 3 Est 29128 Orders: promethazine-codeine, 5 mL, Oral, q6hr, as needed for cough, may cause drowsiness, X 7 days, # 140 mL, 0 Refill(s)
--- OUTSIDE RECORDS SUMMARY | 2016-10-30 06:12 | XMS REPORT | Referral Summary ---
Author Author [facility], [facility] Organization [facility] Address Unknown Phone Unavailable Care Team Providers Care Artificial Log Machine Operator Name Role Phone Jose Ramachandran Primary Care Physician [phone] Encounter VC Date(s): 05/10/15 - 05/10/15 [facility] [address] [place] [address] Discharge Diagnosis: Acute URI Discharge Disposition: 01-Home [...] 30 tabs, 2 Refill(s), CARLA , eRx: [facility] 49501, TAKE 1 TABLET BY MOUTH EVERY DAY Start Date: 09/26/15 Status: Ordered Glucometer strips (DME) DME Item test blood sugars once daily dx 250.00, See Instructions, # 30 tabs, 11 Refill(s), Pharmacy: [facility] 57800, test blood sugars once daily dx 250.00, Supply Start Date: 02/08/14 Status: Ordered HYDROcodone-acetaminophen 7.5 mg-325 mg oral tablet 1 tabs, Oral, q6hr, as needed for pain, must last 30 days, # 60 tabs, 0 Refill(s ) Start Date: 11/19/15 Status: Ordered lisinopril 40 mg oral tablet See Instructions, TAKE 1 BY MOUTH EVERY DAY., # 90 unknown unit, eRx: [facility] 00814, TAKE 1 BY MOUTH EVERY DAY. Start Date: 05/09/14 Status: Ordered metFORMIN 1000 mg oral tablet See Instructions, TAKE 1 TABLET BY MOUTH TWICE DAILY, # 180 tabs, 1 Refill(s), CARLA, eRx: [facility] 01780, TAKE 1 TABLET BY MOUTH TWICE DAILY Start Date: 11/11/15 Status: Ordered Pravachol 20 mg oral tablet See Instructions, TAKE 1.5 TABS PO QHS, # 135 unknown unit, eRx: [facility] 77669, TAKE 1.5 TABS PO QHS Start Date: [...] Title: Office Visit Note-URI Author: Sol Steele ENGINEER SYSTEM ADMINISTRATOR Date: Assessment/Plan 1.Acute URI Discussed with patient [...] Ramachandran. Ordered: Office Visit Level 3 Est 80021 Orders: promethazine-codeine, 5 mL, Oral, q6hr, as needed for cough, may cause drowsiness, X 7 days, # 140 mL, 0 Refill(s)
--- OUTSIDE RECORDS SUMMARY | 2016-10-30 06:12 | XMS REPORT | Referral Summary ---
Author Author [facility] Organization [facility] Address Unknown Phone Unavailable Care Team Providers Care Laminator Hand Name Role Phone Anel Combs Primary Care Physician [phone] Encounter VC Date(s): 01/02/15 - 01/02/15 [facility] [address] [place], [place] [address] Discharge Diagnosis: Hepatitis C Discharge Disposition: [...] 30 tabs, 5 Refill(s), CARLA , eRx: [facility] 30778, TAKE 1 TABLET BY MOUTH EVERY DAY Start Date: 03/29/15 Status: Ordered Glucometer strips (DME) DME Item test blood sugars once daily dx 250.00, See Instructions, # 30 tabs, 11 Refill(s), Pharmacy: [facility] 25388, test blood sugars once daily dx 250.00, Supply Start Date: 02/08/14 Status: Ordered HYDROcodone-acetaminophen 7.5 mg-325 mg oral tablet 1 tabs, Oral, q6hr, as needed for pain, must last 30 days, # 60 tabs, 0 Refill(s ) Start Date: 05/30/15 Status: Ordered lisinopril 40 mg oral tablet See Instructions, TAKE 1 BY MOUTH EVERY DAY., # 90 unknown unit, eRx: [facility] 07162, TAKE 1 BY MOUTH EVERY DAY. Start Date: 05/09/14 Status: Ordered metFORMIN 1000 mg oral tablet 1,000 mg 1 tabs, Oral, BID, # 180 tabs, 0 Refill(s), CARLA, Pharmacy: [facility] 54614, 1 tabs Oral BID Start Date: 02/11/15 Status: Ordered metFORMIN 1000 mg oral tablet See Instructions, 1 TABS ORAL BID, # 180 tabs, CARLA, eRx: [facility] 56933, 1 TABS ORAL BID Start Date: 05/13/15 Status: Ordered Pravachol 20 mg oral tablet See Instructions, TAKE 1.5 TABS PO QHS, # 135 unknown unit, 5 Refill(s), eRx: [facility] 38099, TAKE 1.5 TABS PO QHS Start Date: 06/07/14 Status: Ordered Results Chemistry Most recent to 1 oldest [Reference Range]: Hepatitis C viral 6529985 Intl Units/mL RNA (01/02/15 2:12 PM) HCV [...]
--- OUTSIDE RECORDS SUMMARY | 2016-10-30 06:12 | XMS REPORT | Referral Summary ---
Author Author [facility], [facility] Organization [facility] Address Unknown Phone Unavailable Care Team Providers Care Parer Name Role Phone Jose Ramachandran Primary Care Physician [phone] Encounter VC Date(s): 05/28/16 - 05/28/16 [facility] [place], [address] [place] [address]- Discharge Diagnosis: Controlled diabetes mellitus with microalbuminuria Discharge Diagnosis: Benign essential hypertension Discharge Diagnosis: Cardiomyopathy, hypertrophic Discharge Diagnosis: GERD without esophagitis Discharge Diagnosis: Mixed hyperlipidemia Discharge Diagnosis: Lumbago without sciatica Discharge Diagnosis: Chronic hepatitis C Discharge Disposition: 01-Home or Self Care Attending Physician: Sol Steele APRN Admitting Physician: Sol Steele APRN Vital Signs Most recent to 1 oldest [Reference Range]: Temperature Tympanic 36.4 degC [36.6-38.1 degC] *LOW* (05/28/16 10:49 AM) Peripheral Pulse 64 bpm Rate [60-100 bpm] (05/28/16 10:49 AM) Respiratory Rate 16 br/min [14-20 br/min] (05/28/16 10:49 AM) Blood Pressure 140/76 mmHg [90-140/60-90 mmHg] (05/28/16 10:49 AM) Problem List Condition Effective Dates Status [...] Active sciatica(Confirmed) Mixed Active hyperlipidemia(Confi rmed) Retinal 2013 Resolved edema(Confirmed) Chronic back < 12/04/14 Resolved [...] BID, # 40 tabs, 0 Refill(s), Pharmacy: [facility] 52188, 1 tabs Oral BID Start Date: 03/09/16 Status: Ordered FOR HEP C FOR HEP C, Ghassan-Dr. Valencia, 0 Refill(s) Start Date: 03/26/15 Status: Ordered glimepiride 1 mg oral tablet See Instructions, TAKE 1 TABLET BY MOUTH EVERY DAY, # 30 tabs, 5 Refill(s), CARLA , eRx: [facility] 80286, TAKE 1 TABLET BY MOUTH EVERY DAY Start Date: 03/31/16 Status: Ordered Glucometer strips (DME) DME Item test blood sugars once daily dx 250.00, See Instructions, # 30 tabs, 11 Refill(s), Pharmacy: [facility] 53417, test blood sugars once daily dx 250.00, Supply Start Date: 02/08/14 Status: Ordered Glucometer (DME) DME Item [facility] trueresult glucometer test BS once daily DX: E11.9, See Instructions, # 1 Each, 0 Refill(s), Pharmacy: [facility] 81737, [facility] glucometer; test BS once daily; DX: E11.9, Supply Start Date: 04/14/16 Status: Ordered Glucometer strips (DME) DME Item [facility]ER[facility] TEST STRIPS TEST BS ONCE DAILY DX: E11.9, See Instructions, # 100 Each, 11 Refill(s), [facility], [place] TEST STRIPS TEST BS ONCE DAILY ; DX: E11.9, Supply Start Date: 04/14/16 Status: Ordered HYDROcodone-acetaminophen 7.5 mg-325 mg oral tablet 1 tabs, Oral, q6hr, as needed for pain, must last 30 days, # 60 tabs, 0 Refill(s ) Start Date: 05/28/16 Status: Ordered lisinopril 40 mg oral tablet See Instructions, TAKE 1 BY MOUTH EVERY DAY., # 90 unknown unit, eRx: [facility] 55553, TAKE 1 BY MOUTH EVERY DAY. Start Date: 05/09/14 Status: Ordered metFORMIN 1000 mg oral tablet 1,000 mg 1 tabs, Oral, BID, # 180 tabs, 3 Refill(s), CARLA, [facility], does not need at this time, 1 tabs Oral BID Start Date: 05/28/16 Status: Ordered Pravachol 20 mg oral tablet See Instructions, TAKE 1.5 TABS PO QHS, # 135 unknown unit, eRx: [facility] 57535, TAKE 1.5 TABS PO QHS Start Date: [...] Title: Office Visit Note-CDM Author: Sol Steele GLYCERIN SUPERVISOR Date: 05/28/16 Assessment/Plan 1.Controlled diabetes mellitus with microalbuminuria Improved control. No medication changes. Set patient up with the diabetes education to work with dietand healthy food choices. Plan recheck in 3 months with hemoglobin A1c and chemistry. Labs are reviewed with patient. Questions and concerns were answered. Encouraged patient to get a diabetic eye exam. Lab was forwarded to Dr. Chris. 2.Benign essential hypertension Well controlled with current regimen. No changes. 3.Cardiomyopathy, hypertrophic Euvolemic/asymptomatic. Continue to follow with cardiology. Continue aspirin. 4.Mixed hyperlipidemia Not quite as controlled as last office visit. We 'll see if dietary changes/ education will makedifference for him. If not will need to increase statin. Plan to recheck lipids in 3 months. 5.GERD without esophagitis Continue Zantac periodic. No significant symptoms. 6.Lumbago without sciatica Adequately controlled with [place]. Encourage stretching and strengthening exercises. 7.Chronic hepatitis C Currently in remission. Follow with Dr. Valencia is recommended. URI improving. Let me know ifanything changes.
--- OUTSIDE RECORDS SUMMARY | 2016-10-30 06:12 | XMS REPORT ---
Author Author Marycarmen Powell Organization [employer] Address Unknown Phone Unavailable Care Team Providers Care Figurine Maker Name Role Phone Marycarmen Powell CP Unavailable Allergies, Adverse Reactions, Alerts Substance Reaction Event Type N.K.D.A. 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 Problem Pulmonary Hypertension, Chronic, Unspecified 416.9 Active Problem S/P Aortic Valve Replacement V43.3 Active Problem Hypertension, Unspecified 401.9 Active Assessment S/P Aortic Valve Replacement V43.3 Active Problem Hyperlipidemia 272.4 Active Problem Congestive Heart Failure, Unspecified 428.0 Active Medications Medication Code System Code Instructions Start Date End Date Status Dosage Actos [facility] [address]-53 30 mg Once a day 1 tablet Viagra [facility] [address]-60 50 mg If needed 1 tablet Metformin HCl [facility] [address]-48 1000 mg Twice a day 1 tablet with meals Lisinopril [facility] [address]-18 40 mg Once a day 1 tablet Lortab [facility] [address]-63 7.5-500 mg Twice a day, only if needed 1 or 2 tablets Aspirin [facility] [address]-79 325 mg Once a day 1 tablet Procedures Procedure Coding System Code Date Office Visit, Est Pt., Level 3 CPT-4 08358 Apr 09, 2015 Vital Signs Date/Time: Apr 09, 2015 BMI 28.71 Index Weight 157 lbs Height 62 in Cardiac Monitoring Heart Rate 102 /min Oximetry 94 % Blood Pressure Diastolic 78 mm Hg Blood Pressure Systolic 124 mm Hg Results No Known Results Summary Purpose [employer] Submission
--- OUTSIDE RECORDS SUMMARY | 2016-10-30 06:12 | XMS REPORT | Referral Summary ---
Author Author [facility], [facility] [place] Organization [facility] [place] Address Unknown Phone Unavailable Care Team Providers Care Tetryl Nitrator Operator Name Role Phone Jose Ramachandran Primary Care Physician [phone] Encounter VC Date(s): 08/05/16 - 08/05/16 [facility] [place], [address] [place] [id number]- Discharge Diagnosis: Laryngitis Discharge Diagnosis: GERD without esophagitis Discharge Disposition: 01-Home or Self Care Attending Physician: Sol Steele APRN Admitting Physician: Sol Steele APRN Vital Signs Most recent to 1 oldest [Reference Range]: Temperature Tympanic 36.4 degC [36.6-38.1 degC] *LOW* (08/05/16 2:08 PM) Peripheral Pulse 68 bpm Rate [60-100 bpm] (08/05/16 2:08 PM) Blood Pressure 112/66 mmHg [90-140/60-90 mmHg] (08/05/16 2:08 PM) SpO2 100 % (08/05/16 2:08 PM) Problem List Condition Effective Dates Status [...] BID, # 40 tabs, 0 Refill(s), Pharmacy: [facility], 1 tabs Oral BID Start Date: 03/09/16 Status: Ordered FOR HEP C FOR HEP C, Ghassan-Dr. Valencia, 0 Refill(s) Start Date: 03/26/15 Status: Ordered glimepiride 1 mg oral tablet See Instructions, TAKE 1 TABLET BY MOUTH EVERY DAY, # 30 tabs, 5 Refill(s), CARLA , eRx: [facility] [id number], TAKE 1 TABLET BY MOUTH EVERY DAY Start Date: 03/31/16 Status: Ordered Glucometer strips (DME) DME Item test blood sugars once daily dx 250.00, See Instructions, # 30 tabs, 11 Refill(s), Pharmacy: [facility] [id number], test blood sugars once daily dx 250.00, Supply Start Date: 02/08/14 Status: Ordered Glucometer (DME) DME Item Mention Mobile trueresult glucometer test BS once daily DX: E11.9, See Instructions, # 1 Each, 0 Refill(s), Pharmacy: [facility] [id number], Mention Mobile trueresult glucometer; test BS once daily; DX: E11.9, Supply Start Date: 04/14/16 Status: Ordered Glucometer strips (DME) DME Item Corpsolv TRUERESULT TEST STRIPS TEST BS ONCE DAILY DX: E11.9, See Instructions, # 100 Each, 11 Refill(s), Pharmacy: [facility] [id number], [employer]v TRUERESULT TEST STRIPS TEST BS ONCE DAILY ; DX: E11.9, Supply Start Date: 04/14/16 Status: Ordered HYDROcodone-acetaminophen 7.5 mg-325 mg oral tablet 1 tabs, Oral, q6hr, as needed for pain, must last 30 days, # 60 tabs, 0 Refill(s ) Start Date: 07/06/16 Status: Ordered lisinopril 40 mg oral tablet See Instructions, TAKE 1 BY MOUTH EVERY DAY., # 90 unknown unit, eRx: [facility] [id number], TAKE 1 BY MOUTH EVERY DAY. Start Date: 05/09/14 Status: Ordered metFORMIN 1000 mg oral tablet 1,000 mg 1 tabs, Oral, BID, # 180 tabs, 3 Refill(s), CARLA, Pharmacy: [facility] [id number], does not need at this time, 1 tabs Oral BID Start Date: 05/28/16 Status: Ordered Pravachol 20 mg oral tablet See Instructions, TAKE 1.5 TABS PO QHS, # 135 unknown unit, eRx: [facility] [id number], TAKE 1.5 TABS PO QHS Start Date: 07/18/15 Status: Ordered PriLOSEC 40 mg oral delayed release capsule 40 mg 1 caps, Oral, Daily, # 30 caps, 0 Refill(s), Pharmacy: [facility] [id number], 1 caps Oral Daily Start Date: 08/05/16 Status: Ordered Results No data available for this section Immunizations Given and Recorded Vaccine Date Status [...] and Plan Extracted from: Title: Office Visit Author: Sol Steele H[employer]ORIC [employer]OTHING AND [employer]STUME MAKER Date: 08/05/16 Note-laryngitis/GERD Assessment/Plan 1.Laryngitis I suspect patient has mild laryngitis. Recommend vocal rest. Recommend avoid having a fan on his face directly at night. Humidify the air. Throat lozenges. If he develops any swallowing issueshe is to let us know. I suspect this will improve in one week. Does not he willcontact the office. 2.GERD without esophagitis Start Jauuvqqq95 mg by mouthevery morning 30 minutes before meals. His oflaryngitis may be aggravated by GERD and I explained that to him. He voices understanding.
--- OUTSIDE RECORDS SUMMARY | 2016-10-30 06:12 | XMS REPORT | Referral Summary ---
Author Author [facility], [facility] Organization [facility] Address Unknown Phone Unavailable Care Team Providers Care Supervisor Metal Cans Name Role Phone Anel Combs Primary Care Physician [phone] Encounter VC Date(s): 05/30/15 - 05/30/15 [facility] [address] [place] [id number] Discharge Disposition: 01-Home or Self Care Attending Physician: Sol Steele APRN Admitting Physician: Sol Steele APRN Vital Signs No data available for this [...] Severe pulm HTN, low cardiac output EF 33DrGal Bueno. See Conversion Document Allergies, Adverse Reactions, Alerts No Known Allergies Medications aspirin 325 mg, Oral, 0 Refill(s) Start Date: 12/29/13 Status: Ordered FOR HEP C FOR HEP C, Huong Valencia, 0 Refill(s) Start Date: 03/26/15 Status: Ordered glimepiride 1 mg oral tablet See Instructions, TAKE 1 TABLET BY MOUTH EVERY DAY, # 30 tabs, 5 Refill(s), CARLA , eRx: [facility] [id number], TAKE 1 TABLET BY MOUTH EVERY DAY Start Date: 03/29/15 Status: Ordered Glucometer strips (DME) DME Item test blood sugars once daily dx 250.00, See Instructions, # 30 tabs, 11 Refill(s), Pharmacy: [facility] [id number], test blood sugars once daily dx 250.00, Supply Start Date: 02/08/14 Status: Ordered HYDROcodone-acetaminophen 7.5 mg-325 mg oral tablet 1 tabs, Oral, q6hr, as needed for pain, must last 30 days, # 60 tabs, 0 Refill(s ) Start Date: 05/30/15 Status: Ordered lisinopril 40 mg oral tablet See Instructions, TAKE 1 BY MOUTH EVERY DAY., # 90 unknown unit, eRx: [facility] [id number], TAKE 1 BY MOUTH EVERY DAY. Start Date: 05/09/14 Status: Ordered metFORMIN 1000 mg oral tablet 1,000 mg 1 tabs, Oral, BID, # 180 tabs, 0 Refill(s), CARLA, Pharmacy: [facility] [id number], 1 tabs Oral BID Start Date: 02/11/15 Status: Ordered metFORMIN 1000 mg oral tablet See Instructions, 1 TABS ORAL BID, # 180 tabs, CARLA, eRx: [facility] [id number], 1 TABS ORAL BID Start Date: 05/13/15 Status: Ordered Pravachol 20 mg oral tablet See Instructions, TAKE 1.5 TABS PO QHS, # 135 unknown unit, 5 Refill(s), eRx: [facility] [id number], TAKE 1.5 TABS PO QHS Start Date: [...]
[2016-10-30] MEDS ORDERED: LR 1,000 ML IV SCH (07:00)
[2016-10-30] MEDS ORDERED: LIDOCAINE 1% (10mg/ml) 2ml SDV INJ ONE (07:00)
--- NOTE | 2016-10-30 07:44 | ANESPREOP ---
Anesthesia Record Date and Time DATE: 10/30/16 TIME: 07:38 Pre-Op Diagnosis screening Proposed Surgical Procedure COLONOSCOPY NPO since: mn Allergies: Coded Allergies: No Known Drug Allergies (Verified Allergy, Unknown, 10/30/16) Ht/Wt/BMI Height: 5 ' 2.00 " Weight: 70.000 kg BMI: 28.2 kg/m2 Vital Signs Date Time Temp Pulse Resp B/P Pulse Ox O2 Delivery O2 Flow Rate FiO2 10/30/16 06:10 97.7 66 16 169/81 98 Room Air Medications Inpatient Medications Current Medications Medications (Trade) Dose Ordered Sig/[place] Start Time Stop Time Status Last Admin Dose Admin Lactated Ringer's (Lactated Ringers) 1,000 ml @ 30 mls/hr Q24H 10/30/16 07:00 10/30/16 06:35 30 MLS/HR Aspirin (Aspirin) 81 Mg Tab.chew, 81 MG PO DAILY, (Reported) Last Taken: on 10/26/16 Carvedilol (Carvedilol) 25 Mg Tablet, 1 TAB PO BID, (Reported) Last Taken: on 10/30/16 0545 Glimepiride (Glimepiride) 1 Mg Tablet, 1 TAB PO DAILY, (Reported) Last Taken: on 10/27/16 0800 Hydrocodone/Acetaminophen (Lortab 7.5-325 mg Tablet) 1 Each Tablet, 1 TAB PO Q6H PRN for PAIN, (Reported) Last Taken: on 10/29/16 0800 Lisinopril (Lisinopril) 40 Mg Tablet, 40 MG PO DAILY, (Reported) Last Taken: on 10/27/16 0800 Metformin Hcl (Metformin Hcl) 1,000 Mg Tablet, 1 ,000 MG PO BID, (Reported) Last Taken: on 10/27/16 0800 Currently on Beta Nikolas: Yes Beta Nikolas Last Taken: COREG @ 0545 10/30/16 Medical/Surgical History Anesthesia PMH: Reports: *Diabetes (avg bs at home 130 ), *Hypertension, CHF ( Seen Dr. Powell 2 weeks ago and was cleared for sugery, ), Hepatitis (CHRONIC HEP C PER H&P -PT DENIED), Reflux (PER H&P), Denies: *Angina, *MT, Anesthesia Reactions (NO AIRWAY ISSUES), Arthritis, Asthma, COPD, CVA/Stroke/TIA, Cancer, Deep Vein Thrombosis, Glaucoma, Headaches, Hiatal Hernia, Malignant Hyperthermia , Pneumonia, Renal Disease, Rheumatic Fever, Seizures, Sleep Apnea, Thyroid Disease, Tuberculosis Smoking Status: Never smoker Has pt. smoked today?: No Use Chewing Tobacco?: No Second Hand Exposure: No Substance Use Type: does not use Alcohol Intake: none Past Surgical History Orthopedic Surgeries: Abdominal Surgeries: Yes - CHOLESYSTECTOMY Genitourinary Surgeries: Cardiac Surgeries: Yes - SP VALVE REPLACEMENT 2008 Endocrine Surgeries: Reproductive Surgeries: Yes - SCROTAL EXP Neurological Surgeries: Ear Surgeries: Nose Surgeries: Throat Surgeries: Other Surgeries: No Anesthesia Adverse Reactions: FOUND none Family Hx of Anesthesia Advers: none Hx of Motion Sickness: No Pertinent Findings EKG Rhythm: Sinus Rhythm (elevated st ) Physical Exam Respiratory: Bilat breath sounds equal, Lungs clear Cardiovascular: FOUND Regular rate, rhythm, FOUND No murmur Airway Assessment Mallampati Score: II TMD: 3 Fingerbreadths Neck Extension: Fair Teeth: Poor Dentation Overall Assessment: No Airway Concerns ASA: 3 Plan Anesthesia Plan: TIVA Discussion Discussed risks/options/alternatives of anesthesia and questions answered. Patient consents. Nursing pain assessment noted. Attestation Statement Prior to the delivery of any anesthetic medication, I examined the patient, developed the plan, obtained the patient's consent and discussed the risk and benefits of the procedure with the patient/guardian. JORDYN CONRAD CRNA Oct 30, 2016 07:41
[2016-10-30] MEDS ORDERED: PROPOFOL 500mg 50 ML IV ONE (08:31)
[2016-10-30] MEDS ORDERED: LIDOCAINE 2% (20mg/ml) 5ml PF SDV ONE (08:31)
[2016-10-30 08:55] VITALS: BP 107/53; PULSE 61; RESP 12; TEMP 96.9; O2SAT 97
[2016-10-30 09:00] VITALS: BP 94/45; PULSE 65; RESP 14; O2SAT 94
[2016-10-30 09:10] VITALS: BP 103/62; PULSE 61; RESP 15; O2SAT 97
[2016-10-30 09:20] VITALS: BP 127/61; PULSE 58; RESP 16; O2SAT 97
[2016-10-30 09:30] VITALS: BP 136/63; PULSE 58; RESP 15; O2SAT 97
--- NOTE | 2016-10-30 09:39 | ANESPO ---
Post-Op Note Date 10/30/16 Time: 09:38 Status Pt Participated in Evaluation: Pt participated in person Vital Signs Date Time Temp Pulse Resp B/P Pulse Ox O2 Delivery O2 Flow Rate FiO2 10/30/16 09:30 58 15 136/63 97 Room Air 10/30/16 08:55 96.9 Respiratory Function: Airway patent Cardiovascular Function: Regular pulse Mental Status: Alert/oriented Pain Level Intensity: 0 Unable to Assess Pain Due To: Pt Sleeping Hydration: IV infusing Complications during Recovery None apparent Follow-Up Instructions Instructions Per Surgeon JORDYN CONRAD CRNA Oct 30, 2016 09:39
--- NOTE | 2016-10-30 12:31 | OPNOTEF ---
DATE OF SERVICE 10/30/2016 SURGEON Sanjay Adair MD PREOPERATIVE DIAGNOSIS Colorectal cancer surveillance. POSTOPERATIVE DIAGNOSES Colorectal cancer surveillance, cecal polyp x 1. PROCEDURE Colonoscopy with polypectomy via snare polypectomy technique. ANESTHESIA TIVA BRIEF HISTORY/INDICATIONS Mr. Fe Toribio is a 56-year-old gentleman who presents today to [facility] to undergo a colonoscopy to serve as a portion of his overall colorectal cancer surveillance. For completeness please refer to notes included in the patient's chart. FINDINGS Bowel prep was not ideal and there was still a fair amount of retained fecal matter within the ascending colon. Overall, adequate visualization was able be accomplished. There was evidence for angiodysplastic lesions, diverticula or popeye malignancies. The patient was found have a single polyp within the cecum that was on the order of 8 mm in diameter and removed in its entirety via snare polypectomy technique. NARRATIVE OF PROCEDURE After informed consent was obtained the patient was brought to the endoscopy suite and placed on the table in left lateral decubitus position. Patient subsequently underwent total intravenous anesthesia by the nurse channel development director at my request. Formal timeout was then completed. Next, a digital rectal exam was performed. Normal sphincter tone. No rectal masses were appreciated. An Olympus colonoscope was inserted into the anus and advanced through the lumen of the colon under direct visualization at all times until the cecum was ascertained. Triangulation of the tenia coli and ileocecal valve were identified. As stated above, bowel prep was not ideal and there was still some retained stool present within the cecum and ascending colon. Near the ileocecal valve the patient was found to have an adenomatous-appearing colonic polyp that was on the order of about 8 mm in diameter. A snare was placed around the polyp and the polyp was transected in its entirety and suctioned into a colonic trap. The scope was slowly withdrawn. There was no evidence for angiodysplastic lesions, diverticula or popeye malignancies. Once the colonoscope was withdrawn back to the rectal vault a J-maneuver was performed. No worrisome perianal pathology was noted. Scope was allowed to straighten and was withdrawn through the anal verge. Patient tolerated the procedure without difficulty and was sent back to the preop area in stable condition. Will await biopsy results from today's single polypectomy and proceed accordingly with further recommendations thereafter. [facility]
== END 2016-10-30 09:45 | disposition home or self-care (01) ==
LOC: NSC 06:06
PROVIDERS: ATTEND Surgery
DX: Z12.11 Encounter for screening for malignant neoplasm of colon (principal); D12.0 Benign neoplasm of cecum; I10 Essential (primary) hypertension; I50.9 Heart failure, unspecified; I42.0 Dilated cardiomyopathy; B18.2 Chronic viral hepatitis C; E78.2 Mixed hyperlipidemia; G89.29 Other chronic pain; M54.5 Low back pain; K21.9 Gastro-esophageal reflux disease without esophagitis; I35.8 Other nonrheumatic aortic valve disorders; Q22.1 Congenital pulmonary valve stenosis; Z95.2 Presence of prosthetic heart valve; Z79.82 Long term (current) use of aspirin; Z79.84 Long term (current) use of oral hypoglycemic drugs; Z79.899 Other long term (current) drug therapy
CPT/HCPCS: 45385; 82948; J7120; 88305

== ENCOUNTER 2018-03-13 10:45 | Observation (INO) ==
[2018-03-13] MEDS ORDERED: HYDROMORPHONE 2 MG/ML INJECTION IVP ONE ×2 (11:03→13:31)
[2018-03-13] MEDS ORDERED: ONDANSETRON 4 MG/2 ML INJECTION IVP ONE ×2 (11:03→13:15)
[2018-03-13] MEDS ORDERED: NS 1,000 ML IV ONE ×2 (11:04→13:33)
[2018-03-13] MEDS: SALINE FLUSH 10ml SYRINGE IVF PRN ×3 (11:05→17:32)
--- NOTE | 2018-03-13 11:06 | Emergency Department Report ---
General Adult HPI - General Chief complaint: Dizziness Stated complaint: N/V, dizziness Time Seen by Provider: 03/13/18 10:54 Source: patient Mode of arrival: ambulatory Limitations: no limitations - History of Present Illness HPI narrative: 58 YO HM who presents to ER for abdominal pain, dizziness, nausea and vomiting. Patient reports onset at 0830 this morning. He reports pain is 10/10. He feels his abdomen is distended. He indicates pain is located in mid-abdomen ( midepigastric and periumbilical), but also clutches the right side of his abdomen. He denies diarrhea. No blood in stool. No blood in urine or dysuria. Unknown fever, but he did have chills this morning. Patient states that his last meal was yesterday evening when a neighbor came over and fixed him some "meat and potatoes." Patient ate the meal, neighbor did not. Onset (ago): hour(s) Location: abdomen Radiation: non-radiation Severity: severe Severity scale (1-10): 10 Quality: aching, sharp Associated symptoms: headaches, nausea/vomiting, other (dizziness) - Related Data Home Medications Medication Instructions Recorded Confirmed Carvedilol 25 mg PO BID #120 10/29/16 03/13/18 Aspirin [Adult Aspirin] 81 mg PO DAILY 03/13/18 03/13/18 Atorvastatin [Lipitor] 20 mg PO HS 03/13/18 03/13/18 Hydrocodone/APAP 7.5/325 [[place] 1 tab PO BID PRN 03/13/18 03/13/18 7.5/325] Metformin HCl 1,000 mg PO BID 03/13/18 03/13/18 Allergies Allergy/AdvReac Type Severity Reaction Status Date / Time No Known Drug Allergies Allergy Unknown Verified 03/13/18 11:13 Review of Systems Constitutional: Reports: chills Eyes: Denies: eye pain, eye discharge, vision change ENT: Denies: ear pain, throat pain, dental pain Cardiovascular: Denies: chest pain, palpitations, dyspnea on exertion Respiratory: Denies: cough, dyspnea, wheezes, hemoptysis Gastrointestinal: Reports: as per HPI, abdominal pain, nausea, vomiting. Denies : diarrhea, hematemesis, melena, hematochezia Genitourinary: Denies: urgency, dysuria, frequency, hematuria Integumentary: Denies: pruritus, rash Neurological: Reports: as per HPI. Denies: headache Endocrine: Reports: fatigue Allergic/Immunologic: Denies: facial swelling, urticaria PFSH Patient Stated Medical History Hearing Loss Yes Hypertension Yes Diabetes Mellitus Type 2 Yes Gastroesophageal Reflux Yes Disease HEPATITIS C (treated with Harvoni) DM CAD Surgical History: CABG. CHOLECYSTECTOMY. CARDIAC CATH - Social History Smoking status: Never smoker Substance use type: does not use Alcohol intake frequency: does not drink Current residence: Apartment/Private Home Physical Exam - General General appearance: alert - Normal Exams: Head:: Normocephalic without trauma Eyes:: Pupils are PERRLA w/ EOMI, No scleral icterus Chest/Respirations:: Clear all liazrraga, with good airflow, and symmetry bilaterally Cardiovascular:: Regular rate and rhythm, without murmur or gallop, Pulses 2+ all extremities, capillary refill, <2 seconds all extremities Integumentary:: No rashes, hives, or bruising noted Neurological:: Patient is alert, and oriented, cranial nerves, motor/sensory/ cerebellar, exams w/o gross deficits - Abdominal Exam Abdominal exam: Present: distention, tenderness (MIDEPIGASTRIC TO PERIUMBILICAL) . Absent: rebound, rigidity, Lowe's sign, Rovsing's sign, tenderness at McBurney's Point Course Course Narrative: 1318: PATIENT RESTING QUIETLY. ABDOMINAL PAIN IMPROVED AFTER DILAUDID IV. SECOND DOSE OF ZOFRAN CONTROLLING DRY HEAVES. 1333: ED PHYSICIAN IN ROOM TO NOTIFY PATIENT OF LAB AND CT SCAN RESULTS. PATIENT BEGINS COMPLAINING OF INCREASED PAIN. HE BEGINS WRITHING AROUND AND DRY HEAVING AGAIN. 1408: PATIENT RESTING QUIETLY AFTER ADDITIONAL IV DILAUDID AND TORADOL 1410: ED PHYSICIAN AGAIN IN ROOM TO DISCUSS DISMISSAL AND PLAN OF CARE WITH PATIENT. PATIENT STATES "I'M REALLY SCARED TO GO HOME LIKE THIS." PATIENT AGAIN BEGINS WRITHING AROUND ON THE BED AND TURNS TO THE SIDE AND BEGINS DRY HEAVING. 1415: PAGED DR. SANCHEZ - Consultations Consultation #1: DR. SANCHEZ PAGED Time: 14:15 Vital Signs Temperature 97.9 F 03/13/18 10:51 Pulse Rate 67 03/13/18 10:51 Respiratory Rate 16 03/13/18 10:51 Blood Pressure 213/112 H 03/13/18 10:51 Pulse Oximetry 95 03/13/18 10:51 Temperature 97.5 F 03/13/18 16:28 Pulse Rate 74 03/13/18 15:20 Respiratory Rate 14 03/13/18 15:20 Blood Pressure 146/84 H 03/13/18 15:20 Pulse Oximetry 92 03/13/18 15:25 Medical Decision Making - Lab Data Lab results reviewed: Yes: I reviewed the patient's lab results. Lab results narrative: HYPERGLYCEMIA NOTED Result diagrams: 03/13/18 11:06 03/13/18 11:06 Lab Results 03/13/18 03/13/18 03/13/18 Range/Units 11:06 11:06 11:06 WBC 8.8 (4.5-11.0) T/MM3 RBC 5.74 (4.50-5.90) M/MM3 Hgb 16.0 (13.5-17.5) GM/DL Hct 48.7 (41-53) % MCV 84.8 (80-100) UM3 MCH 27.9 (26-34) UUG MCHC 32.9 (31-37) GM/DL RDW Std Deviation 42.5 (36.9-50.2) FL Plt Count 188 (130-400) T/MM3 MPV 10.7 (9.4-12.4) UM3 Immature Gran % (Auto) 0.2 (0.0-0.5) % Neut % (Auto) 65.9 (33-66) % Lymph % (Auto) 27.0 (23-45) % [place] % (Auto) 5.6 (0-9.0) % Eos % (Auto) 1.1 (0-4) % Baso % (Auto) 0.2 (0-2) % Neut # (Auto) 5.8 (1.8-7.7) T/MM3 Lymph # (Auto) 2.4 (1-4.8) T/MM3 [place] # (Auto) 0.5 (0-0.8) T/MM3 Eos # (Auto) 0.1 (0-0.5) T/MM3 Baso # (Auto) 0.0 (0-0.2) T/MM3 Abs Immat Gran (auto) 0.02 (0.00-0.03) T/MM3 Turbidity < 20 (0-20) Sodium 140 (136-146) MEQ/L Potassium 4.5 (3.6-5) MEQ/L Chloride 104 (98-107) MEQ/L Carbon Dioxide 23 (22-30) MEQ/L Anion Gap 13 (5-15) meq/L BUN 19.0 (9-20) MG/DL Creatinine 0.9 (0.8-1.5) mg/dL Estimated Creat Clear 77 (>50) mL/min GFR Calculation 86 (>60) mL/min BUN/Creatinine Ratio 21 (6-26) RATIO Glucose 224 H (75-110) MG/DL Calculated Osmolality 278 (261-280) MOSM/KG Calcium 9.8 (8.4-10.2) MG/DL Total Bilirubin 0.70 (0.20-1.30) MG/DL Conjugated Bilirubin 0.00 (0.00-0.30) mg/dL Unconjugated Bilirubin 0.80 (0.00-1.1) mg/dL Icterus Index < 2 (0-7) AST 31 (17-59) U/L ALT 22 (1-50) U/L Alkaline Phosphatase 97 (38-126) U/L Total Protein 7.9 (6.3-8.2) g/dL Albumin 4.4 (3.5-5.0) g/dL Globulin 3.5 (2.4-3.6) G/DL Albumin/Globulin Ratio 1.3 (1.1-2.2) RATIO Lipase 63 (23-300) U/L Specimen Hemolysis < 15 (0-25) Ur Collection Type Urine, void-cc/notcc Urine Color Yellow (YELLOW) Urine Clarity Clear Urine pH 7.0 (5.0-8.0) Ur Specific [place] 1.015 (1.015-1.025) Urine Protein 3+ A (NEGATIVE) Urine Glucose (UA) Trace A (NEGATIVE) Urine Ketones Negative (NEGATIVE) Urine Occult Blood 1+ A (NEGATIVE) Urine Nitrate Negative (NEGATIVE) Urine Bilirubin Negative (NEGATIVE) Urine Urobilinogen 0.2 (NORMAL) EU/DL Ur Leukocyte Esterase Negative (NEGATIVE) Urine RBC 1-3 (0-3) /HPF Urine WBC 1-3 (0-5) /HPF Ur Squamous Epith Cells 0-5 Urine Bacteria Trace H (NEGATIVE) Ur Culture Indicated? Cult not indicated - Radiology Data Radiology results reviewed: Yes: I reviewed the patient's radiology results. CT ABD/PELVIS WITH AND WITHOUT CONTRAST: QUESTIONABLE UNDERLYING CIRRHOSIS (NODULAR CHANGE TO LIVER SURFACE) POST CHOLECYSTECTOMY. NO DUCTAL DILATION PANCREAS UNREMARKABLE. STOMACH AND BOWEL ARE UNREMARKABLE. NO OBSTRUCTION. NO MUCOSAL THICKENING. APPENDIX UNREMARKABLE NO FINDINGS INDICATIVE OF APPENDICITIS OVERALL, NO ACUTE ABNORMALITY TO ACCOUNT FOR FINDINGS. Disposition Clinical Impression: Nausea & vomiting Qualifiers: Vomiting type: bilious vomiting Qualified Code(s): R11.14 - Bilious vomiting Hypertension Qualifiers: Hypertension type: essential hypertension Qualified Code(s): I10 - Essential ( primary) hypertension Disposition: 02 To [facility] Condition: Stable Time of Disposition: 14:15 - Seen By: physician
--- OUTSIDE RECORDS SUMMARY | 2018-03-13 11:08 | External Medical Summary | Continuity of Care Document ---
:1960 Author Organization [facility] Allergies Active Description Code Type Severity Reaction Onset Reported/ Identified Relationship Clinical to Patient Status Yes No Known NKMA N/A N/A 12/29/2013 Allergies Yes No Known No Aller Unknown N/A 10/30/2016 Drug Known gy Allergies Drug Aller gies Medications Medication Packaging Start Date Stop Route Dosage Sig Date 1 tabs 12/29/2013 03/30/20 Oral 100 mg losartan(Cozaar 14 1 tabs, 100 mg oral Oral, Daily tablet) 1.5 tabs 12/29/2013 06/07/20 Oral 30 mg pravastatin(pra 14 1.5 tabs, vastatin 20 mg Oral, oral tablet) Bedtime (once a day) 1 tabs 12/29/2013 04/26/20 Oral 1,000 mg metFORMIN(metFO 14 1 tabs, RMIN 1000 mg Oral, BID oral tablet) 12/29/2013 01/06/20 Oral HYDROcodone-melvi 14 1-2 tabs, taminophen(HYDR Oral, q6hr, Ocodone-acetami PRN: as nophen 7.5 needed for mg-325 mg oral pain tablet) 1 tabs 12/29/2013 05/09/20 Oral 40 mg lisinopril(ana 14 1 tabs, nopril 40 mg Oral, Daily oral tablet) 1 tabs 12/29/2013 03/06/20 Oral 200 mg ribavirin(ribav 14 1 tabs, irin 200 mg Oral, BID oral tablet) 1 tabs 12/29/2013 03/01/20 Oral 1 mg glimepiride(gli 14 1 tabs, mepiride 1 mg Oral, Daily oral tablet) 2 tabs 12/29/2013 03/06/20 Oral 750 mg telaprevir(Inci 14 2 tabs, vek 375 mg oral Oral, TID, tablet) 168 tabs 12/29/2013 12/05/19 Oral 120 mg diltiazem(dilti 15 120 mg, azem) Oral, Daily 12/29/2013 Oral 325 mg aspirin(aspirin 325 mg, ) Oral 1 tabs 12/29/2013 03/06/20 Oral 10 mg cetirizine(ceti 14 1 tabs, rizine 10 mg Oral, Daily oral tablet) 01/05/2014 03/05/20 Oral HYDROcodone-melvi 14 1-2 tabs, taminophen(HYDR Oral, q6hr, Ocodone-acetami must last nophen 7.5 30 days, 60 mg-325 mg oral tabs, PRN: tablet) as needed for pain 1 tabs 02/27/2014 03/30/20 Oral 100 mg losartan(losart 14 1 tabs, an 100 mg oral Oral, tablet) Daily, 30 tabs 1 tabs 03/01/2014 03/28/20 Oral 1 mg glimepiride(gli 14 1 tabs, mepiride 1 mg Oral, oral tablet) Daily, called to pharmacy-pt made appt for next week, 30 tabs 03/05/2014 05/01/20 Oral HYDROcodone-melvi 14 1-2 tabs, taminophen(HYDR Oral, q6hr, Ocodone-acetami must last nophen 7.5 30 days, 60 mg-325 mg oral tabs, PRN: tablet) as needed for pain 03/28/2014 06/06/20 glimepiride(gli 14 See mepiride 1 mg Instruction oral tablet) s, TAKE 1 TABLET BY MOUTH EVERY DAY, 30 tabs 03/30/2014 12/05/19 losartan(losart 15 See an 100 mg oral Instruction tablet) s, 1 TABS ORAL DAILY *PT SAYS ON HOLD*, 30 tabs 05/01/2014 06/19/20 Oral HYDROcodone-melvi 14 1-2 tabs, taminophen(HYDR Oral, q6hr, Ocodone-acetami must last nophen 7.5 30 days, 60 mg-325 mg oral tabs, PRN: tablet) as needed for pain 06/06/2014 01/29/20 glimepiride(gli 15 See mepiride 1 mg Instruction oral tablet) s, TAKE 1 TABLET BY MOUTH EVERY DAY, 30 tabs 1 tabs 12/04/2014 02/05/20 Oral HYDROcodone-melvi 15 1 tabs, taminophen(HYDR Oral, q6hr, Ocodone-acetami must last nophen 7.5 30 days, mg-325 mg oral PRN: as tablet) needed for pain, 60 tabs, 0 Refill(s) 01/28/2015 02/29/20 glimepiride(gli 15 See mepiride 1 mg Instruction oral tablet) s, TAKE 1 TABLET BY MOUTH EVERY DAY, 30 tabs 02/28/2015 03/29/20 glimepiride(gli 15 See mepiride 1 mg Instruction oral tablet) s, TAKE 1 TABLET BY MOUTH EVERY DAY, 30 tabs 1 tabs 03/26/2015 05/30/20 Oral HYDROcodone-melvi 15 1 tabs, taminophen(HYDR Oral, q6hr, Ocodone-acetami must last nophen 7.5 30 days, mg-325 mg oral PRN: as tablet) needed for pain, 60 tabs, 0 Refill(s) 03/29/2015 09/26/19 glimepiride(gli 16 See mepiride 1 mg Instruction oral tablet) s, TAKE 1 TABLET BY MOUTH EVERY DAY, 30 tabs, 5 Refill(s) 0.5 mL 05/30/2015 05/30/20 IntraMuscular influenza virus 15 0.5 mL, vaccine, IntraMuscul inactivated(inf ar, Once luenza virus vaccine) 0.5 mL 09/03/2015 09/03/19 IntraMuscular influenza virus 16 0.5 mL, vaccine, IntraMuscul inactivated(inf ar, Once luenza virus vaccine, inactivated) 09/26/2015 12/30/19 glimepiride(gli 16 See mepiride 1 mg Instruction oral tablet) s, TAKE 1 TABLET BY MOUTH EVERY DAY, 30 tabs, 2 Refill(s) 1 tabs 10/07/2015 11/19/19 Oral HYDROcodone-melvi 16 1 tabs, taminophen(HYDR Oral, q6hr, Ocodone-acetami must last nophen 7.5 30 days, mg-325 mg oral PRN: as tablet) needed for pain, 60 tabs, 0 Refill(s) 12/30/2015 03/31/20 glimepiride(gli 16 See mepiride 1 mg Instruction oral tablet) s, TAKE 1 TABLET BY MOUTH EVERY DAY, 30 tabs, 2 Refill(s) 1 tabs 03/09/2016 12/03/19 Oral 75 mg diclofenac(dicl 17 75 mg=1 ofenac sodium tabs, Oral, 75 mg oral BID, 40 delayed release tabs, 0 tablet) Refill(s) 03/31/2016 09/29/19 glimepiride(gli 17 See mepiride 1 mg Instruction oral tablet) s, TAKE 1 TABLET BY MOUTH EVERY DAY, 30 tabs, 5 Refill(s) 0.5 mL 04/14/2016 04/14/20 IntraMuscular influenza virus 16 0.5 mL, vaccine, IntraMuscul inactivated(inf ar, Once luenza virus vaccine, inactivated) 1 tabs 05/22/2016 05/27/20 Oral 20 mg predniSONE(pred 16 20 mg=1 niSONE 20 mg tabs, Oral, oral tablet) Daily, for 5 days, 5 tabs, 0 Refill(s) 1 tabs 05/28/2016 07/06/20 Oral HYDROcodone-melvi 16 1 tabs, taminophen(HYDR Oral, q6hr, Ocodone-acetami must last nophen 7.5 30 days, mg-325 mg oral PRN: as tablet) needed for pain, 60 tabs, 0 Refill(s) 1 tabs 05/28/2016 Oral 1,000 mg metFORMIN(metFO 1,000 mg=1 RMIN 1000 mg tabs, Oral, oral tablet) BID, 180 tabs, 3 Refill(s) 1 caps 08/05/2016 12/19/19 Oral 40 mg omeprazole(PriL 17 40 mg=1 OSEC 40 mg oral caps, Oral, delayed release Daily, 30 capsule) caps, 0 Refill(s) 1 tabs 08/26/2016 10/09/19 Oral HYDROcodone-melvi 17 1 tabs, taminophen(HYDR Oral, q6hr, Ocodone-acetami must last nophen 7.5 30 days, mg-325 mg oral PRN: as tablet) needed for pain, 60 tabs, 0 Refill(s) caps 12/18/2016 Oral mEq potassium mEq=caps, chloride(potass Oral, BID, ium chloride 10 0 Refill(s) mEq oral capsule, extended release) 12/18/2016 Oral 100 mg losartan(losart 100 mg, an) Oral, Daily, 0 Refill(s) 12/18/2016 Oral 1 mg bumetanide(bume 1 mg, Oral, tanide) Daily, 0 Refill(s) 1 tabs 12/18/2016 12/29/19 Oral 500 mg levofloxacin(Le 17 500 mg=1 vaquin 500 mg tabs, Oral, oral tablet) q24hr, for 10 days, 10 tabs, 0 Refill(s) 5 mL 12/18/2016 Oral promethazine-co 5 mL, Oral, deine(promethaz q4hr, ine-codeine [facility], 6.25 mg-10 mg/5 PRN: as mL oral syrup) needed for cough, 120 mL, 0 Refill(s) 1 tabs 02/05/2017 Oral HYDROcodone-melvi 1 tabs, taminophen(HYDR Oral, q6hr, Ocodone-acetami must last nophen 7.5 30 days, mg-325 mg oral PRN: as tablet) needed for pain, 60 tabs, 0 Refill(s) 1 tabs 03/08/2017 Oral HYDROcodone-melvi 1 tabs, taminophen(HYDR Oral, q6hr, Ocodone-acetami must last nophen 7.5 30 days, mg-325 mg oral PRN: as tablet) needed for pain, 60 tabs, 0 Refill(s) 03/09/2017 Oral sacubitril-vals Oral, BID, lynette(Entresto) 0 Refill(s) 1 tabs 03/09/2017 Oral sacubitril-vals 1 tabs, lynette(Entresto Oral, BID, 24 mg-26 mg 60 tabs, 0 oral tablet) Refill(s) Problems Date Dx Attending Type Code Diagnosis Diagnosed By Coded 03/09/2016 Duarte Final M25.512 Pain in left Royal K shoulder 04/14/2016 Salma Steele Final S46.812A Strain of other D muscles, fascia and tendons at shoulder and upper arm level, left arm, initial encounter 05/22/2016 Salma Steele Final J98.8 Other specified D respiratory disorders 05/22/2016 Salma Steele Final 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 05/22/2016 Salma Steele Final E78.5 Hyperlipidemia, D unspecified 05/22/2016 IvetteSalma silverman Final I10 Essential (primary) D hypertension 05/22/2016 IvetteSalma silverman Final J30.2 Other seasonal D allergic rhinitis 05/28/2016 IvetteSalma silverman Final E11.29 Type 2 diabetes D mellitus with other diabetic kidney complication 05/28/2016 IvetteSalma silverman Final I10 Essential (primary) D hypertension 05/28/2016 IvetteSalma silverman Final I42.2 Other hypertrophic D cardiomyopathy 05/28/2016 IvetteSalma silverman Final E78.2 Mixed hyperlipidemia D 05/28/2016 IvetteSalma silverman Final K21.9 Gastro-esophageal D reflux disease without esophagitis 05/28/2016 Salma Steele Final B18.2 Chronic viral D hepatitis C 05/28/2016 IvetteSalma royal Final M54.5 Low back pain D 08/05/2016 Salma Steele Final J04.0 Acute laryngitis D 08/05/2016 Salma Steele Final K21.9 Gastro-esophageal D reflux disease without esophagitis 08/26/2016 IvetteSalma royal Final E11.29 Type 2 diabetes D mellitus with other diabetic kidney complication 08/26/2016 Salma Steele Final E78.2 Mixed hyperlipidemia D 08/26/2016 Salma Steele Final I10 Essential (primary) D hypertension 08/26/2016 Salma Steele Final I42.2 Other hypertrophic D cardiomyopathy 08/26/2016 Salma Steele Final J04.0 Acute laryngitis D 08/26/2016 Salma Steele Final K21.9 Gastro-esophageal D reflux disease without esophagitis 08/26/2016 Salma Steele Final M54.5 Low back pain D 09/23/2016 King Lomax I50.9 Heart failure, M unspecified 09/23/2016 King Lomax Final Z12.11 Encounter for M screening for malignant neoplasm of colon 09/23/2016 King Lomax I35.9 Nonrheumatic aortic M valve disorder, unspecified 10/30/2016 SAMUEL GREENFIELD, B18.2 CHRONIC VIRAL [facility] CWS HEPATITIS C 10/30/2016 SAMUEL GREENFIELD, D12.0 BENIGN NEOPLASM OF [facility]ING [facility] CWS CECUM 10/30/2016 SAMUEL GREENFIELD, E78.2 MIXED HYPERLIPIDEMIA [facility] CWS 10/30/2016 SAMUEL GREENFIELD, G89.29 OTHER CHRONIC PAIN [facility] CWS 10/30/2016 SAMUEL GREENFIELD, I10 ESSENTIAL (PRIMARY) [facility] CWS HYPERTENSION 10/30/2016 SAMUEL GREENFIELD, I35.8 OTHER NONRHEUMATIC [facility] CWS AORTIC VALVE DISORDERS 10/30/2016 SAMUEL GREENFIELD, I42.0 DILATED [facility] CWS CARDIOMYOPATHY 10/30/2016 SAMUEL GREENFIELD, I50.9 HEART FAILURE, [facility] CWS UNSPECIFIED 10/30/2016 SAMUEL GREENFIELD, K21.9 GASTRO-ESOPHAGEAL [facility] CWS REFLUX DISEASE WITHOUT ESOPHAGITIS 10/30/2016 SAMUEL GREENFIELD, K63.5 POLYP OF COLON [facility] CWS 10/30/2016 SAMUEL GREENFIELD, M54.5 LOW BACK PAIN [facility] CWS 10/30/2016 SAMUEL GREENFIELD, Q22.1 CONGENITAL PULMONARY [facility] CWS VALVE STENOSIS 10/30/2016 SAMUEL GREENFIELD, Z12.11 ENCOUNTER FOR [facility] CWS SCREENING FOR MALIGNANT NEOPLASM OF COLON 10/30/2016 SAMUEL GREENFIELD, Z79.82 ENVIRONMENTAL STUDIES DEPARTMENT CHAIR (CURRENT) [facility] CWS USE OF ASPIRIN 10/30/2016 SAMUEL GREENFIELD, Z79.84 FDC (CURRENT) [facility] CWS USE OF ORAL HYPOGLYCEMIC DRUGS 10/30/2016 SAMUEL GREENFIELD, Z79.899 OTHER FDC [facility] S (CURRENT) DRUG THERAPY 10/30/2016 SAMUEL GREENFIELD, Z95.2 PRESENCE OF KING [facility] CWS PROSTHETIC HEART VALVE 12/02/2016 Salma Steele Final E11.29 Type 2 diabetes D mellitus with other diabetic kidney complication 12/02/2016 Salma Steele Final E78.2 Mixed hyperlipidemia D 12/02/2016 Salma Steele Final I10 Essential (primary) D hypertension 12/02/2016 Salma Steele Final M54.5 Low back pain D 12/18/2016 Duarte, Final J20.8 Acute bronchitis due Royal Jose to other specified organisms 12/18/2016 Duarte, Final J20.8 Acute bronchitis due Royal Garcia to other specified organisms 03/08/2017 Duarte, Final 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 [id number] Office or 03/09/2016 other outpatient visit for the evaluation and management of an established patient, which requires at least 2 of these 3 martinez components: An expanded problem focused history; An expanded prob [id number] Office or 04/14/2016 other outpatient visit for the evaluation and management of an established patient, which requires at least 2 of these 3 martinez components: An expanded problem focused history; An expanded prob [id number] Office or 05/22/2016 other outpatient visit for the evaluation and management of an established patient, which requires at least 2 of these 3 martinez components: An expanded problem focused history; An expanded prob [id number] Office or 05/28/2016 other outpatient visit for the evaluation and management of an established patient, which requires at least 2 of these 3 martinez components: A detailed history; A detailed examination; Medical d [id number] Office or 08/05/2016 other outpatient visit for the evaluation and management of an established patient, which requires at least 2 of these 3 martinez components: An expanded problem focused history; An expanded prob 35020 Office or 08/26/2016 other outpatient visit for the evaluation and management of an established patient, which requires at least 2 of these 3 martinez components: A detailed history; A detailed examination; Medical d [id number] Office or 09/23/2016 other outpatient visit for the evaluation and management of a new patient, which requires these 3 martinez components: A comprehensive history; A comprehensive examination; Medical decision analy [id number] Office or 12/02/2016 other outpatient visit for the evaluation and management of an established patient, which requires at least 2 of these 3 martinez components: A detailed history; A detailed examination; Medical d [id number] Office or 12/18/2016 other outpatient visit for the evaluation and management of an established patient, which requires at least 2 of these 3 martinez components: An expanded problem focused history; An expanded prob 34482 Office or 03/08/2017 other outpatient visit for the evaluation and management of an established patient, which requires at least 2 of these 3 martinez components: A detailed history; A detailed examination; Medical d Results Test Result Range Comprehensive Metabolic Panel [...] 08/26/16 14:00 Estimated Average Glucose 145.6 mg/dL L900.0530 - 10/30/16 06:31 GLUCOMETER 151 mg/dL 75-110 Comprehensive Metabolic Panel (CMP) - 03/09/17 09:45 Albumin 4.0 g/dL 3.5-5.0 Alkaline Phosphatase 90 U/L 40-150 ALT (SGPT) 21 U/L 0-55 Anion Gap 9 mEq/L 3-20 AST (SGOT) 27 U/L 5-34 Bilirubin Total 0.4 mg/dL 0.2-1.2 BUN 26 mg/dL 8-26 Calcium 9.8 mg/dL 8.4-10.2 Chloride 105 mEq/L 99-111 CO2 28 mEq/L 23-31 Creatinine 1.11 mg/dL 0.72-1.25 Globulin 3.5 g/dL 1.8-4.0 Glucose 121 mg/dL 70-99 Potassium 4.9 mEq/L 3.5-5.2 Protein 7.5 g/dL 6.1-7.7 Sodium 142 mEq/L 135-144 Lipid Panel - 03/09/17 09:45 Cardiac Risk 4.5 0.0-5.7 Cholesterol 209 mg/dL 0-199 HDL Cholesterol 46 mg/dL 40-84 LDL Cholesterol 125 mg/dL 0-130 Triglycerides 191 mg/dL 0-149 VLDL Cholesterol 38 mg/dL 0-28 eGFR - 03/09/17 09:45 eGFR >60 mL/min >60 Hemoglobin A1C - 03/09/17 09:45 Hemoglobin A1C 6.7 % 4.1-5.6 Estimated Average Glucose - 03/09/17 09:45 Estimated Average Glucose 145.6 mg/dL Albumin Random Urine - 03/09/17 09:55 Albumin Random Urine 443.2 mg/dL 0.0-1.7 Comp. Metabolic Panel (14) - 05/17/17 09:51 Glucose, Serum 152 mg/dL 65-99 BUN 21 mg/dL 6-24 Creatinine, Serum 1.16 mg/dL 0.76-1.27 eGFR If NonAfricn Am 69 mL/min/1.73 >59 eGFR If Africn Am 80 mL/min/1.73 >59 BUN/Creatinine Ratio 18 9-20 Sodium, Serum 138 mmol/L 134-144 Potassium, Serum 5.1 mmol/L 3.5-5.2 Chloride, Serum 98 mmol/L 96-106 Carbon Dioxide, Total 24 mmol/L 18-29 Calcium, Serum 9.2 mg/dL 8.7-10.2 Protein, Total, Serum 7.4 g/dL 6.0-8.5 Albumin, Serum 4.1 g/dL 3.5-5.5 Globulin, Total 3.3 g/dL 1.5-4.5 A/G Ratio 1.2 1.2-2.2 Bilirubin, Total 0.3 mg/dL 0.0-1.2 Alkaline Phosphatase, S 98 IU/L 39-117 AST (SGOT) 37 IU/L 0-40 ALT (SGPT) 28 IU/L 0-44 Magnesium, Serum - 05/17/17 09:51 Magnesium, Serum 2.0 mg/dL 1.6-2.3 CBC With Differential/Platelet - 06/21/17 10:22 WBC 7.1 x10E3/uL 3.4-10.8 RBC 5.63 x10E6/uL 4.14-5.80 Hemoglobin 15.6 g/dL 12.6-17.7 Hematocrit 49.1 % 37.5-51.0 MCV 87 fL 79-97 MCH 27.7 pg 26.6-33.0 MCHC 31.8 g/dL 31.5-35.7 RDW 14.3 % 12.3-15.4 Platelets 182 x10E3/uL 150-379 Neutrophils 59 % Not Estab. Lymphs 32 % Not Estab. Monocytes 8 % Not Estab. Eos 1 % Not Estab. Basos 0 % Not Estab. Neutrophils (Absolute) 4.2 x10E3/uL 1.4-7.0 Lymphs (Absolute) 2.3 x10E3/uL 0.7-3.1 Monocytes(Absolute) 0.6 x10E3/uL 0.1-0.9 Eos (Absolute) 0.1 x10E3/uL 0.0-0.4 Baso (Absolute) 0.0 x10E3/uL 0.0-0.2 Immature Granulocytes 0 % Not Estab. Immature Grans (Abs) 0.0 x10E3/uL 0.0-0.1 Comp. Metabolic Panel (14) - 06/21/17 10:22 Glucose, Serum 189 mg/dL 65-99 BUN 22 mg/dL 6-24 Creatinine, Serum 1.00 mg/dL 0.76-1.27 eGFR If NonAfricn Am 83 mL/min/1.73 >59 eGFR If Africn Am 95 mL/min/1.73 >59 BUN/Creatinine Ratio 22 9-20 Sodium, Serum 141 mmol/L 134-144 Potassium, Serum 5.1 mmol/L 3.5-5.2 Chloride, Serum 101 mmol/L 96-106 Carbon Dioxide, Total 24 mmol/L 18-29 Calcium, Serum 9.6 mg/dL 8.7-10.2 Protein, Total, Serum 7.0 g/dL 6.0-8.5 Albumin, Serum 4.1 g/dL 3.5-5.5 Globulin, Total 2.9 g/dL 1.5-4.5 A/G Ratio 1.4 1.2-2.2 Bilirubin, Total 0.4 mg/dL 0.0-1.2 Alkaline Phosphatase, S 96 IU/L 39-117 AST (SGOT) 32 IU/L 0-40 ALT (SGPT) 34 IU/L 0-44 TSH - 06/21/17 10:22 TSH 0.631 uIU/mL 0.450-4.500 Thyroxine (T4) Free, Direct, S - 06/21/17 10:22 T4,Free(Direct) 1.27 ng/dL 0.82-1.77 Triiodothyronine,Free,Serum - 06/21/17 10:22 Triiodothyronine,Free,Serum 3.1 pg/mL 2.0-4.4 Magnesium, Serum - 06/21/17 10:22 Magnesium, Serum 1.6 mg/dL 1.6-2.3 Comp Metabolic Panel (14) - 06/21/17 10:22 Protein, Total, Serum 7.0 g/dL 6.0-8.5 Albumin, Serum 4.1 g/dL 3.5-5.5 Bilirubin, Total 0.4 mg/dL 0.0-1.2 Alkaline Phosphatase, S 96 IU/L 39-117 AST (SGOT) 32 IU/L 0-40 ALT (SGPT) 34 IU/L 0-44 Glucose, Serum 189 mg/dL 65-99 BUN 22 mg/dL 6-24 Creatinine, Serum 1.00 mg/dL 0.76-1.27 BUN/Creatinine Ratio 22 9-20 Sodium, Serum 141 mmol/L 134-144 Potassium, Serum 5.1 mmol/L 3.5-5.2 Chloride, Serum 101 mmol/L 96-106 Carbon Dioxide, Total 24 mmol/L 18-29 Calcium, Serum 9.6 mg/dL 8.7-10.2 Globulin, Total 2.9 g/dL 1.5-4.5 A/G Ratio 1.4 1.2-2.2 TSH - 06/21/17 10:22 TSH 0.631 uIU/mL 0.450-4.500 T4, Free - 06/21/17 10:22 T4,Free(Direct) 1.27 ng/dL 0.82-1.77 T3,Free,Serum - 06/21/17 10:22 Magnesium, Serum - 06/21/17 10:22 Magnesium, Serum 1.6 mg/dL 1.6-2.3 Encounters ACCT No. Visit Discharge Status Pt. Type Provider Facility Loc./Unit Complaint Date/Time [id number] 03/09/2017 03/09/2017 DIS Outpatie Duarte, Via [facility] New Lab LAB [id number] 09:35:00 23:59:00 nt Royal Garcia [facility] [id number] 03/08/2017 03/08/2017 DIS Outpatie Duarte, [facility] New FM cdm diab 7680 13:52:00 23:59:00 nt Royal Garcia [facility] dyslip htn Clinic [id number] 12/18/2016 12/18/2016 DIS Outpatie Duarte, [facility] New FM Hoarse voice 1746 14:50:00 23:59:00 nt Royal Jose [facility] [id number] 12/02/2016 12/02/2016 DIS Outpatie Ivette, Via [facility] New FM CDM DM 5637 13:30:00 23:59:00 nt Salma Venegas DYSLIP HTN Clinic [id number] 09/23/2016 09/23/2016 DIS Outpatie Samuel, Via [facility] New CONSULT FOR [id number] 15:28:00 23:59:00 nt King Venegas Surg COLONOSCOPY Clinic PER SALMA [id number] 08/26/2016 08/26/2016 DIS Outpatie Ivette, Via [facility] New FM diab dyslip 8588 13:03:00 23:59:00 nt Salma D Rubi htn Clinic [id number] 08/05/2016 08/05/2016 DIS Outpatie Ivette, [facility] New FM Hoarseness 8540 13:59:00 23:59:00 nt Salma Anel [facility] [id number] 05/28/2016 05/28/2016 DIS Outpatie Ivette, [facility] New FM cdm 5963 10:38:00 23:59:00 nt Salma D [facility] [id number] 05/22/2016 05/22/2016 DIS Outpatie Ivette, [facility] New FM TCPA Cough 3842 14:03:00 23:59:00 nt Salma Anel Rubi and Clinic congestion [id number] 04/14/2016 04/14/2016 DIS Outpatie Ivette, Via [facility] New FM RECHECK LEFT 2352 08:33:00 23:59:00 nt Salma Venegas ARM PAIN AND Clinic DISCUSS GLUCOSE METER [id number] 03/09/2016 03/09/2016 DIS Outpatie Duarte, [facility] New FM TCPA pain 9703 11:06:00 23:59:00 nt Royal Venegas in left side Clinic shoulder and back [id number] 10/07/2015 10/07/2015 DIS Outpatie Duarte, [facility] New FM new to est [id number] 14:19:00 23:59:00 nt Royal Venegas was lizzie Clinic pt sees salma [id number] 09/03/2015 09/03/2015 DIS Outpatie Duarte, [facility] New FM flu shot [id number] 09:39:00 23:59:00 nt Royal Jose [facility] [id number] 07/08/2015 07/08/2015 DIS Outpatie Ivette, Via [facility] New FM dyslip htn 4421 13:16:00 23:59:00 nt Salma Venegas Clinic [id number] 05/30/2015 05/30/2015 DIS Outpatie Ivette, [facility] New FM flu shot 7021 09:36:00 23:59:00 nt Salma [facility] [id number] 05/10/2015 05/10/2015 DIS Outpatie Ivette, [facility] New FM cold cough 6390 08:42:00 23:59:00 nt Salma Venegas Clinic [id number] 05/02/2015 05/02/2015 DIS Outpatie Annie, Via [facility] [place] 3255 08:24:00 23:59:00 nt Carlin Venegas [facility] complete Clinic [id number] 03/26/2015 03/26/2015 DIS Outpatie Ivette, [facility] New FM Discuss lab 0574 13:12:00 23:59:00 nt Salma Venegas results Clinic [id number] 10/30/2016 10/30/2016 DIS Outpatie SAMUEL Guzman NSC 2537 06:06:00 09:45:00 nt KING GREENFIELD [facility] Center [id number] 06/09/2016 Document [id number] 10:23:00 Registra tion [id number] 09/06/2013 09/06/2013 CLS Outpatie 14:12:00 23:59:59 nt [id number] 06/22/2017 Document [id number] 13:06:00 Registra tion 03/03/2018 03/03/2018 CLS OutpatiItzel Guevara 11:30:00 23:59:[address] [id number] 06/21/2017 Document 10:22:00 Registra tion [id number]/10/2017 Document [id number] 05:16:26 Registra tion [id number]/09/2017 Document [id number] 05:16:45 Registra tion [id number]/06/2017 Document [id number] 05:15:40 Registra tion 2016121912/19/2016 Document [id number] 05:15:50 Registra tion [id number]/27/2016 Document [id number] 05:17:01 Registra tion [id number]/06/2016 Document [id number] 05:15:43 Registra tion [id number] 05/29/2016 Document [id number] 05:17:45 Registra tion [id number]/23/2016 Document [id number] 05:16:24 Registra tion [id number] 04/15/2016 Document [id number] 05:17:15 Registra tion 2016040104/01/2016 Document [id number] 05:18:52 Registra tion [id number] 03/10/2016 Document [id number] 05:17:47 Registra tion 2015123112/31/2015 Document [id number] 05:15:48 Registra tion [id number] 10/08/2015 Document [id number] 05:17:14 Registra tion [id number] 09/27/2015 Document [id number] 05:17:06 Registra tion [id number] 09/04/2015 Document [id number] 05:17:22 Registra tion [id number] 05/31/2015 Document [id number] 05:17:16 Registra tion 2015051505/15/2015 Document [id number] 13:43:10 Registra tion 2015051505/15/2015 Document [id number] 13:20:06 Registra tion 2015051505/15/2015 Document [id number] 13:04:54 Registra tion 2015051505/15/2015 Document [id number] 12:57:50 Registra tion [id number] 05/15/2015 Document [id number] 12:14:49 Registra tion [id number] 05/15/2015 Document [id number] 10:26:43 Registra tion [id number] 05/15/2015 Document [id number] 10:21:28 Registra tion [id number] 05/15/2015 Document [id number] 10:03:17 Registra tion [id number] 05/15/2015 Document [id number] 09:58:20 Registra tion 2015051505/15/2015 Document [id number] 09:43:28 Registra tion [id number] 05/15/2015 Document [id number] 09:32:04 Registra tion 2015051505/15/2015 Document [id number] 09:27:19 Registra tion 2015051505/15/2015 Document [id number] 08:59:15 Registra tion [id number] 05/15/2015 Document [id number] 08:53:10 Registra tion [id number] 03/09/2017 ACT Document 00:52:45 Registra tion [id number] 05/18/2017 Document [id number] 10:08:00 Registra tion
--- OUTSIDE RECORDS SUMMARY | 2018-03-13 11:08 | External Medical Summary | Referral Summary ---
:1960 Author Organization [facility] Address [address] [place] [address] [place] [address] Care Team Providers Name Role Phone Royal Ramachandran Primary Care Physician Encounter VC Date(s): 03/08/17 - 03/08/17 [facility] [place] [phone] [place] Discharge Diagnosis: Mixed hyperlipidemia Discharge Diagnosis: Microalbuminuric Diabetic Nephropathy Discharge Diagnosis: Congestive heart failure (disorder) Discharge Diagnosis: Benign essential hypertension (disorder) Discharge Diagnosis: Diabetes mellitus, type 2 Discharge Disposition: 01-Home or Self Care Attending Physician: Royal Ramachandran MD Admitting Physician: Royal Ramachandran MD Vital Signs Most recent to oldest [Reference Range]: 1 Temperature Tympanic [36.6-38.1 degC] 36.8 degC (03/08/17 1:58 PM) Peripheral Pulse Rate [60-100 bpm] 72 bpm (03/08/17 1:58 PM) Respiratory Rate [14-20 br/min] 16 br/min (03/08/17 1:58 PM) Blood Pressure [90-140/60-90 mmHg] 132/82 mmHg (03/08/17 1:58 PM) Problem List Condition Effective Dates Status Health Status Informant Valvular heart disease(Confirmed)1 05/31/14 Active Benign essential hypertension Active (disorder)(Confirmed) PRIM CARDIOMYOPATHY NEC(Confirmed)2 < 06/01/14 Resolved Congestive heart failure Resolved (disorder)(Confirmed)3 Chronic hepatitis C Active (disorder)(Confirmed) Microalbuminuric Diabetic < 03/06/14 Resolved Nephropathy(Confirmed) congenital HD(Confirmed) Active ECHO-ASYMETIC SEVERE LVH L-VENTRICAL 09/13/09 Active HYPODENSISI-EF 35%(Confirmed) Asymmetrical septal Active hypertrophy(Confirmed) Dyslipidemia(Confirmed) < 03/06/14 Resolved Pedal Edema(Confirmed) Active GERD without esophagitis(Confirmed) Active Hypertensive retinopathy(Confirmed) 2012 Resolved Cardiomyopathy, Active hypertrophic(Confirmed) Erectile dysfunction(Confirmed) 11/2010 Active Lumbago without sciatica(Confirmed) Active Mixed hyperlipidemia(Confirmed) Active Retinal edema(Confirmed) 2012 Resolved Chronic back pain(Confirmed) < 12/04/14 Resolved 1severe aortic valvular insuff. moderate aortic stenosis, mod. severe valvular insuff, sign elev. of R heart pressures and moderate pulm stenosis. Severe pulm HTN, low cardiac output EF 33Dr. Myles. See Conversion [id number] Cardiomyopathy. See Conversion [id number] 09/13/09, 07/08/11 - Hypertrophic cardiomyopathy, LVH, EF 35-39% (Dr. Bueno). See Conversion Document Allergies, Adverse Reactions, Alerts No Known Allergies Medications aspirin 325 mg, Oral, 0 Refill(s) Start Date: 12/29/13 Status: Orderedbumetanide 1 mg, Oral, Daily, 0 Refill(s) Start Date: 12/18/16 Status: Orderedglimepiride 1 mg oral tablet 1 mg 1 tabs, Oral, Daily, # 30 tabs, 5 Refill(s), CARLA, Pharmacy: [facility] [id number], 1 tabs Oral Daily Start Date: 09/28/16 Status: OrderedGlucometer strips (DME) DME Item [employer] TRUERESULT TEST STRIPS TEST BS ONCE DAILY DX: E11.9, See Instructions, # 100 Each, 11 Refill(s), Pharmacy: [facility] [id number], [employer] TRUERESULT TEST STRIPS TEST BS ONCEDAILY ; DX: E11.9, Supply Start Date: 12/02/16 Status: OrderedHYDROcodone-acetaminophen 7.5 mg-325 mg oral tablet 1 tabs, Oral, q6hr, as needed for pain, must last 30 days, # 60 tabs, 0 Refill(s ) Start Date: 03/08/17 Status: Orderedlisinopril 40 mg oral tablet See Instructions, TAKE 1 BY MOUTH EVERY DAY., # 90 unknown unit, eRx: [facility] [id number], TAKE 1 BY MOUTH EVERY DAY. Start Date: 05/09/14 Status: Orderedlosartan 100 mg, Oral, Daily, 0 Refill(s) Start Date: 12/18/16 Status: OrderedmetFORMIN 1000 mg oral tablet 1,000 mg 1 tabs, Oral, BID, # 180 tabs, 3 Refill(s), CARLA, Pharmacy: [facility] [id number], doesnot need at this time, 1 tabs Oral BID Start Date: 05/28/16 Status: Orderedpotassium chloride 10 mEq oral capsule, extended release mEq caps, Oral, BID, 0 Refill(s) Start Date: 12/18/16 Status: Ordered Immunizations Given and Recorded Vaccine Date Status Refusal Reason influenza virus vaccine, inactivated 04/14/16 Given influenza virus vaccine, inactivated 09/03/15 Given influenza virus vaccine, inactivated 05/30/15 Given influenza virus vaccine, inactivated 05/01/14 Recorded influenza virus vaccine, live 04/13/13 Given influenza virus vaccine, live 07/02/11 Given influenza virus vaccine, live 05/06/09 Given influenza virus vaccine, live 06/19/08 Given hepatitis B adult vaccine 11/17/12 Given varicella virus vaccine 11/03/12 Recorded tetanus/diphtheria/pertussis, acel(Tdap) 11/03/12 Recorded hepatitis A-hepatitis B vaccine 12/14/11 Given hepatitis A-hepatitis B vaccine 10/12/11 Given pneumococcal 23-polyvalent vaccine 07/02/11 Recorded Procedures Procedure Date Related Diagnosis Body Site Colonoscopic polypectomy1 10/30/16 Echocardiogram 2013 Gall Bladder 05/2010 Heart valve replacement, Porcine AORTIC ( 04/16/09 oJri)2 Cataract extraction eye exam-20/40 ou-no retinopathy Hernia repair 1Tubular adenoma, repeat in 5 [id number] valve, Dr. Hsieh Social History Social History Type Response Smoking Status Never smoker Assessment and Plan Extracted from: Title: Office Visit Note Author: Royal Ramachandran MD Date: 03/08/17 1.Benign essential hypertension (disorder) Blood pressure appears to be well-controlled no change in current treatment is recommended. Fasting laboratory studies ordered he'll come in later this week to get those done. Report card was rev iewed and provided. Follow-up in 3 months recommended. Ordered: Comprehensive Metabolic Panel Lipid Panel Office Visit Level 4 Est 74335 2.Mixed hyperlipidemia Fasting labs ordered for later this week no change in current treatment will let him know if there is abnormalities. 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 Ordered: Comprehensive Metabolic Panel Lipid Panel Office Visit Level 4 Est 26976 5.Diabetes mellitus, type 2 A1c ordered for later this week we'll see what that shows and make further recommendations as needed. Glucometers appears stable. Report card reviewed today. Ordered: Comprehensive Metabolic Panel Hemoglobin A1c Lipid Panel Office Visit Level 4 Est 38074
--- OUTSIDE RECORDS SUMMARY | 2018-03-13 11:08 | External Medical Summary | Referral Summary ---
:1960 Author [facility] Address [address] [place] [address] [place] [address] Care Team Providers Name Role Phone Royal Ramachandran Primary Care Physician Encounter VC Date(s): 12/18/16 - 12/18/16 [facility] [place] [phone] [place] Discharge Diagnosis: Acute bronchitis due to other specified organisms Discharge Diagnosis: Acute bronchitis Discharge Disposition: 01-Home or Self Care Attending Physician: Royal Ramachandran MD Admitting Physician: Royal Ramachandran MD Vital Signs Most recent to oldest [Reference Range]: 1 Temperature Tympanic [36.6-38.1 degC] 36.4 degC *LOW* (12/18/16 3:16 PM) Peripheral Pulse Rate [60-100 bpm] 80 bpm (12/18/16 3:16 PM) Respiratory Rate [14-20 br/min] 16 br/min (12/18/16 3:16 PM) Blood Pressure [90-140/60-90 mmHg] 124/70 mmHg (12/18/16 3:16 PM) Problem List Condition Effective Dates Status Health Status Informant Valvular heart disease(Confirmed)1 05/31/14 Active Benign essential hypertension Active (disorder)(Confirmed) PRIM CARDIOMYOPATHY NEC(Confirmed)2 < 06/01/14 Resolved Chronic hepatitis C Active (disorder)(Confirmed) Congestive heart failure Resolved (disorder)(Confirmed)3 Microalbuminuric Diabetic < 03/06/14 Resolved Nephropathy(Confirmed) congenital [...] cardiac output EF 33Dr. Myles. See Conversion [id number] Cardiomyopathy. See Conversion [id number] 09/13/09, 07/08/11 - Hypertrophic cardiomyopathy, LVH, EF 35-39% (Dr. Bueno). See Conversion Document Allergies, Adverse Reactions, Alerts No Known Allergies Medications aspirin 325 mg, Oral, 0 Refill(s) Start Date: 12/29/13 Status: Orderedbumetanide 1 mg, Oral, Daily, 0 Refill(s) Start Date: 12/18/16 Status: Orderedglimepiride 1 mg oral tablet 1 mg 1 tabs, Oral, Daily, # 30 tabs, 5 Refill(s), CARLA, Pharmacy: [facility] [id number], 1 tabs Oral Daily Start Date: 09/28/16 Status: OrderedGlucometer strips (DME) DME Item [email or web address] TRUERESULT TEST STRIPS TEST BS ONCE DAILY DX: E11.9, See Instructions, # 100 Each, 11 Refill(s), Pharmacy: [facility] [id number], [email or web address] TRUERESULT TEST STRIPS TEST BS ONCEDAILY ; DX: E11.9, Supply Start Date: 12/02/16 Status: OrderedHYDROcodone-acetaminophen 7.5 mg-325 mg oral tablet 1 tabs, Oral, q6hr, as needed for pain, must last 30 days, # 60 tabs, 0 Refill(s ) Start Date: 11/25/16 Status: OrderedLevaquin 500 mg oral tablet 500 mg 1 tabs, Oral, q24hr, X 10 days, # 10 tabs, 0 Refill(s), Pharmacy: [id number],1 tabs Oral q24hr,x10 days Start Date: 12/18/16 Stop Date: 12/28/16 Status: Orderedlisinopril 40 mg oral tablet See Instructions, TAKE 1 BY MOUTH EVERY DAY., # 90 unknown unit, eRx: [facility] [address], TAKE 1 BY MOUTH EVERY DAY. Start Date: 05/09/14 Status: Orderedlosartan 100 mg, Oral, Daily, 0 Refill(s) Start Date: 12/18/16 Status: OrderedmetFORMIN 1000 mg oral tablet 1,000 mg 1 tabs, Oral, BID, # 180 tabs, 3 Refill(s), CARLA, Pharmacy: [facility] [address], doesnot need at this time, 1 tabs Oral BID Start Date: 05/28/16 Status: Orderedpotassium chloride 10 mEq oral capsule, extended release mEq caps, Oral, BID, 0 Refill(s) Start Date: 12/18/16 Status: Orderedpromethazine-codeine 6.25 mg-10 mg/5 mL oral syrup 5 mL, Oral, q4hr, as needed for cough, [facility], # 120 mL, 0 Refill(s) Start Date: 12/18/16 Status: Ordered Results No data available for [...] Heart valve replacement, Porcine AORTIC ( 04/16/09 Jori)2 Cataract extraction eye exam-20/40 ou-no retinopathy Hernia repair 1Tubular adenoma, repeat in 5 [id number] valve, Dr. Hsieh Social History Social History Type Response Smoking Status Never smoker Assessment and Plan Extracted from: Title: Office Visit Note Author: Royal Ramachandran MD Date: 12/18/16 Assessment/Plan 1.Acute bronchitis I've recommended Levaquin 500 mg daily 10 days. Qgeb-cet-atnilgm Mucinex may be of some benefit as well. Continue his other regular medications. If symptoms aren't improving through the wee kend or further problems develop follow-up.
--- OUTSIDE RECORDS SUMMARY | 2018-03-13 11:08 | External Medical Summary | Referral Summary ---
:1960 Author Organization [facility] [place] [address] Care Team Providers Name Role Phone Royal Ramachandran Primary Care Physician Encounter VC Date(s): 12/02/16 - 12/02/16 [facility] [place] [phone] [place] Discharge Diagnosis: Controlled diabetes mellitus with microalbuminuria Discharge Diagnosis: Lumbago without sciatica Discharge Diagnosis: Mixed hyperlipidemia Discharge Diagnosis: Benign essential hypertension Discharge Disposition: 01-Home or Self Care Attending Physician: Sol Steele APRN Admitting Physician: Sol Steele APRN Vital Signs Most recent to oldest [Reference Range]: 1 Temperature Tympanic [36.6-38.1 degC] 36.5 degC *LOW* (12/02/16 1:36 PM) Peripheral Pulse Rate [60-100 bpm] 64 bpm (12/02/16 1:36 PM) Blood Pressure [90-140/60-90 mmHg] 116/60 mmHg (12/02/16 1:36 PM) Problem List Condition Effective Dates Status [...] cardiac output EF 33Dr. Myles. See Conversion [id number] Cardiomyopathy. See Conversion [id number] 09/13/09, 07/08/11 - Hypertrophic cardiomyopathy, LVH, EF 35-39% (Dr. Bueno). See Conversion Document Allergies, Adverse Reactions, Alerts No Known Allergies Medications aspirin 325 mg, Oral, 0 Refill(s) Start Date: 12/29/13 Status: Orderedglimepiride 1 mg oral tablet 1 mg 1 tabs, Oral, Daily, # 30 tabs, 5 Refill(s), [facility], Pharmacy: [facility] [id number], 1 tabs Oral Daily Start Date: 09/28/16 Status: OrderedGlucometer strips (DME) DME Item [employer] TRUERESULT TEST STRIPS TEST BS ONCE DAILY DX: E11.9, See Instructions, # 100 Each, 11 Refill(s), Pharmacy: [facility] [id number], [employer] TRUERESULT TEST STRIPS TEST BS ONCEDAILY ; DX: E11.9, Supply Start Date: 12/02/16 Status: OrderedHYDROcodone-acetaminophen 7.5 mg-325 mg oral tablet 1 tabs, Oral, q6hr, as needed for pain, must last 30 days, # 60 tabs, 0 Refill(s ) Start Date: 11/25/16 Status: Orderedlisinopril 40 mg oral tablet See Instructions, TAKE 1 BY MOUTH EVERY DAY., # 90 unknown unit, eRx: [facility] [id number], TAKE 1 BY MOUTH EVERY DAY. Start Date: 05/09/14 Status: OrderedmetFORMIN 1000 mg oral tablet 1,000 mg 1 tabs, Oral, BID, # 180 tabs, 3 Refill(s), CARLA, Pharmacy: [facility] [id number], doesnot need at this time, 1 tabs Oral BID Start Date: 05/28/16 Status: OrderedPravachol 20 mg oral tablet See Instructions, TAKE 1.5 TABS PO QHS, # 135 unknown unit, eRx: [facility] [id number], TAKE 1.5 TABS PO QHS Start Date: 07/18/15 Status: OrderedPriLOSEC 40 mg oral delayed release capsule 40 mg 1 caps, Oral, Daily, # 30 caps, 0 Refill(s), Pharmacy: [facility] [id number], 1 caps OralDaily Start Date: 08/05/16 Status: Ordered Results No [...] Hernia repair 1Tubular adenoma, repeat in 5 [id number] valve, Dr. Hsieh Social History Social History Type Response Smoking Status Never smoker Assessment and Plan Extracted from: Title: Office Visit Note-CDM Author: Sol Steele BOSS MINER Date: 12/02/16 Assessment/Plan 1.Controlled diabetes mellitus with microalbuminuria Diabetes under relatively good control according to his home Accu-Cheks. Discussed with patient that he really needs to check his blood sugars periodicallyif he is symptomatic or once to see pu lmonary as that. Once a day as more than adequate. Plan diabetic check in 3 months with hemoglobin A1c, chemistry and lipids. Patient plans to see Dr. Ramachandran. 2.Lumbago without sciatica Continue current regimen. [place] use is appropriate. 3.Benign essential hypertension Well controlled on current regimen. No changes. 4.Mixed hyperlipidemia Has been well controlled. Recheck lipids in 3 months. Continue to follow with multiple specialists formedical issues.
[2018-03-13] MEDS ORDERED: IOHEXOL 300mg/ml 100ml INJECTION ONE (11:39)
[2018-03-13] MEDS ORDERED: SALINE FLUSH 10ml SYRINGE ONE (11:39)
[2018-03-13] MEDS ORDERED: KETOROLAC 30 MG/ML INJECTION IVP ONE (13:32)
[2018-03-13] MEDS ORDERED: PROMETHAZINE 25 MG INJECTION IVP ONE (14:21)
[2018-03-13] MEDS ORDERED: SCOPOLAMINE 1mg/3 days PATCH (Eq. 1.5 Patch) TD SCH (14:30)
--- NOTE | 2018-03-13 15:16 | History & Physical Report ---
History of Present Illness Date: 03/13/18 Chief complaint: n/v, dizziness HPI: Patient is a 58 yo male who presented to ED with n/v and dizziness which started at 0830 this am. States yesterday he felt fine and he slept well last night. He has abdominal pain and has vomited multiple times this am. Has had no diarrhea. States he had a formed BM at 0900 this am. He states when the pain in the abdomen is worse, he feels like it spreads up his chest and into his head and makes him dizzy, jose manuel when he is standing/walking. Pain was 10/10 on presentation to ER and is 8/10 now on admission following dilaudid and Zofran in ER. He denies h/o GERD or PUD. Has had cholecystectomy. Had CT abd/ pelvis in ED showing no acute abnormalities, just nodular change to the liver questionable for cirrhosis. Labs were essentially nl other than an elevated BS which is explained by him having DM. No blood in his emesis. No urinary sxs. No fever. Patient was given 2 L NS in ED, Zofran x 2, promethazine, scopolamine, Toradol and Dilaudid x 2. He does feel better now than on admission and states he feels best when he is laying down. Review of Systems All systems PM: 10-point ROS was reviewed, no additional remarkable complaints except Review of systems: n/v, abdominal pain, dizziness/headache worsened when standing/walking Past Medical History Medical History Updates: CAD, DM Type 2, HTN Surgical History: CABG. CHOLECYSTECTOMY. CARDIAC CATH. 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 Ludwig Medications Home Medications Medication Instructions Recorded Confirmed Type Carvedilol 25 mg PO BID #120 10/29/16 03/13/18 History Aspirin [Adult Aspirin] 81 mg PO DAILY 03/13/18 03/13/18 History Atorvastatin [Lipitor] 20 mg PO HS 03/13/18 03/13/18 History Hydrocodone/APAP 7.5/325 [[place] 1 tab PO BID PRN 03/13/18 03/13/18 History 7.5/325] Metformin HCl 1,000 mg PO BID 03/13/18 03/13/18 History Allergies Allergy/AdvReac Type Severity Reaction Status Date / Time No Known Drug Allergies Allergy Unknown Verified 03/13/18 11:13 Exam Vital Signs: Temperature 97.9 F 03/13/18 10:51 Pulse Rate 76 03/13/18 14:29 Respiratory Rate 18 03/13/18 14:29 Blood Pressure 153/65 H 03/13/18 14:29 Pulse Oximetry 100 03/13/18 14:29 Height/Weight/BMI: Height 1.57 m Weight 72.5 kg - Constitutional Present: mild distress, well nourished, well developed - Routine HEENT Exam Head: Present: normocephalic, atraumatic Eye: Present: EOMI, PERRL ENT: Present: mucous membranes dry, oropharynx clear - Routine Neck Exam Present: supple. Absent: lymphadenopathy - Routine Respiratory Exam Present: CTA bilaterally. Absent: wheezes - Routine Cardiovascular Exam Present: RRR, murmur (best heard at LLsternal border) - Routine Abdominal Exam Present: normoactive bowel sounds, tenderness (epigastric to periumbilical, no guarding), distended - Routine Extremities Exam Present: no edema, normal capillary refill - Routine Skin Exam Present: dry, warm - Routine Neurological Exam Present: CN II-XII intact, normal speech pt is drowsy - struggles to stay awake during visit - Routine Psychiatric Exam Present: normal affect, cooperative Results - Labs CBC & Chem 7: 03/13/18 11:06 03/13/18 11:06 Labs: Laboratory Tests 03/13/18 11:06 Ur Collection Type Urine, void-cc/notcc Urine Color Yellow Urine Clarity Clear Urine pH 7.0 Ur Specific [place] 1.015 Urine Protein 3+ A Urine Glucose (UA) Trace A Urine Ketones Negative Urine Occult Blood 1+ A Urine Nitrate Negative Urine Bilirubin Negative Urine Urobilinogen 0.2 Ur Leukocyte Esterase Negative Urine RBC 1-3 Urine WBC 1-3 Ur Squamous Epith Cells 0-5 Urine Bacteria Trace H Assessment and Plan Assessment and Plan: Assessment Abdominal pain Nausea with vomiting Dizziness Dehydration CAD DM HTN Plan Admit, OBS- IVF's and monitoring for n/v/abd pain. CT and labs in ED reviewed. CT essentially neg except nodular changes of liver. LFT's are nl. Lipase nl. NS 2L bolus in ED. Continue maintenance fluids. Accuchecks and SSI. Hold metformin until taking po well. PRN antiemetics and Morphine prn pain SCD's for ppx Protonix for abd pain and GI ppx Full Code PCP - Dr Ramachandran DVT Prophylaxis: SCD's GI Prophylaxis: Protonix Resuscitation Status: Full Code - Physician Narrative Physician: Chance De La Rosa MD Narrative: Date: 03/13/18 Time: 1919 Have independently interviewed and examined pt. Chart reviewed. Case discussed with ED physician and my PA. Care plan developed with my supervision; agree with above. Presents to ED secondary to increase ab pain, nausea/vomiting, and dizziness. Onset of symptoms this am. Was in typical state of health yesterday. Awoke this am with increasing ab pain and nausea. Very dizzy and unsteady when walker to bathroom. Has had multiple episodes of emesis. Not able to keep foods/liquids in. Not able to keep down the Pepto-Bismal he tried to help symptoms. No diarrhea-had normal stool this am. Not having f/c. Is feeling very weak and unsteady. Breathing stable. Evaluated in ED. Lab unremarkable. CT unremarkable. Despite IVF and multiple pain/nausea medications, symptoms persisted. Patient did not feel improved enough to go home-still not able to keep oral in. Placed in OBS for further evaluation and supportive care. Lungs: clear CV: regular AB: soft slight distention, BS present EXT: no edema GEN: looks weak and tired. Plan: OBS. IVF for support. Control nausea/pain. Scopolamine patch for nausea. Clear liquids as able, advancing as patient can tolerate. SCD. Recheck lab in am. Full code. Care to return to Dr Ramachandran at time of discharge from [facility]. Hospital Course Summary Disclaimer: The visit summary below is not to be considered part of the above Progress Note. Hospital Course: 03/13/18 Admit, OBS- IVF's and monitoring for n/v/abd pain. CT and labs in ED reviewed. CT essentially neg except nodular changes of liver. LFT's are normal. Lipase normal. NS 2L bolus in ED. Continue maintenance fluids. Accuchecks and SSI. Hold metformin until taking po well. PRN antiemetics and Morphine prn pain. Scopolamine patch to help nausea. SCD's for DVT prevention. Protonix for abdominal pain and GI ppx. Full Code. PCP - Dr Ramachandran
[2018-03-13] MEDS ORDERED: INSULIN ASPART 100unit/ml INJECTION SQ PRN (15:20)
[2018-03-13] MEDS ORDERED: NS 1,000 ML IV SCH (15:30)
[2018-03-13] MEDS ORDERED: PROCHLORPERAZINE 10 MG/2 ML INJECTION IVP PRN (15:38)
[2018-03-13] MEDS ORDERED: ACETAMINOPHEN 325 MG TABLET PO PRN (15:38)
[2018-03-13] MEDS ORDERED: ONDANSETRON 4 MG/2 ML INJECTION IVP PRN (15:38)
[2018-03-13] MEDS ORDERED: HYDROCODONE/APAP 7.5 MG/325 MG TABLET PO PRN (15:38)
[2018-03-13 15:41] VITALS: BMI 30.2
[2018-03-13] MEDS: 1/2 NS 1,000 ML IV SCH (15:58)
[2018-03-13] MEDS ORDERED: FALL RISK - PHARMACY CONSULT MC ONE (16:07)
[2018-03-13] MEDS ORDERED: MORPHINE SULFATE 2mg INJECTION IVP PRN (16:12)
[2018-03-13] MEDS: PANTOPRAZOLE 40 MG INJECTION IVP SCH (17:32)
[2018-03-13] MEDS ORDERED: CARVEDILOL 25 MG TABLET PO SCH (21:00)
[2018-03-13 23:26] VITALS: RESP 18
[2018-03-14] MEDS: 1/2 NS 1,000 ML IV SCH ×2 (00:40→08:46)
[2018-03-14] MEDS ORDERED: CARVEDILOL 25 MG TABLET PO SCH (08:00)
[2018-03-14 08:06] VITALS: BP 143/70; PULSE 59; TEMP 98.3; O2SAT 92
[2018-03-14] MEDS: PANTOPRAZOLE 40 MG INJECTION IVP SCH (08:47)
[2018-03-14] MEDS ORDERED: ASPIRIN *EC* 81 MG TABLET PO SCH (09:00)
--- NOTE | 2018-03-14 13:08 | CT Scan Report ---
Indication: RLQ, PERIUMBILICAL ABD PAIN PROCEDURE: CT abdomen pelvis w con: Encounter: Initial Comparison: None Technique: Axial CT images were performed through the abdomen and pelvis after the administration of intravenous contrast. Coronal and sagittal two-dimensional reformats. Automated Exposure Control and Iterative Reconstruction dose reducing techniques were utilized. Contrast: Omnipaque 300 89 mL Findings: The lung bases are grossly clear. The liver is slightly nodular suggesting possible cirrhosis. The gallbladder is surgically absent. The spleen, pancreas, adrenal glands and kidneys are within normal limits. No bowel obstruction. Bladder is normal no significant free fluid. No free air. Bone windows show no acute findings. The appendix is normal. Impression: No acute disease process seen. There is a preliminary report by [facility]. .
--- NOTE | 2018-03-14 13:37 | Progress Note ---
- Date 03/14/18 Subjective: F/U: Abdominal pain, Nausea with vomiting, Dizziness Feeling much better today. Noted minimal dizziness but not as severe or limiting as yesterday. Nausea resolved. No emesis. Able to eat well. No f/c. Breathing well. Has been ambulating well. No new problems occurring. Objective Vital signs: Temperature 98.3 F 03/14/18 08:00 Pulse Rate 59 L 03/14/18 08:00 Respiratory Rate 18 03/14/18 08:00 Blood Pressure 143/70 H 03/14/18 08:00 Pulse Oximetry 92 03/14/18 08:00 Height/Weight/BMI: Height 1.57 m Weight 73 kg Body Mass Index 30.2 - Constitutional Present: no acute distress, well nourished, well developed, average body habitus , cooperative - Routine HEENT Exam Head: Present: normocephalic, atraumatic Eye: Present: EOMI, PERRL, normal accommodation ENT: Present: mucous membranes moist - Routine Respiratory Exam Present: CTA bilaterally. Absent: rales, respiratory distress, rhonchi, wheezes , crackles - Routine Cardiovascular Exam Present: RRR, no murmur - Routine Abdominal Exam Present: soft, normoactive bowel sounds, non distended, non tender. Absent: guarding - Routine Extremities Exam Present: no edema, pulses intact. Absent: cyanosis, clubbing - Routine Musculoskeletal Exam Musculoskeletal: Present: no clubbing or cyanosis, normal strength - Routine Skin Exam Present: dry, warm - Routine Neurological Exam Present: alert, oriented X3, CN II-XII intact, moving all extremities, vision grossly intact, hearing grossly intact, normal speech. Absent: motor deficit, altered mental status - Routine Psychiatric Exam Present: normal affect, normal thought process, cooperative Results - Labs CBC & Chem 7: 03/14/18 04:57 03/14/18 04:57 Assessment and Plan Assessment and Plan: Assessment Nausea with vomiting Abdominal pain Dizziness Dehydration CAD DM HTN Plan Clinically much improved. Nausea resolved-able to eat and drink well. Not having ab pain. Dizziness essentially resolved. Able to ambulate well. Feels steady. Strength intact. Recheck lab normal. Vitals stable and patient is afebrile. With clinical improvements can discharge to home in stable condition. Diabetic diet. Activities as tolerated Continue chronic medications. Will continue with Scopolamine patch - may remove on 03/17/18. Could continue if needed, but suspect symptoms to be completely resolved by then. F/U with Dr Ramachandran in 1 week. See orders for details. Time spent with patient care and discharger greater than 30 minutes. DVT Prophylaxis: SCD's GI Prophylaxis: Protonix Resuscitation Status: Full Code - Physician Narrative Physician: Chance De La Rosa MD Narrative: Date: 03/14/18 Time: 1330 Hospital Course Summary Disclaimer: The visit summary below is not to be considered part of the above Progress Note. Hospital Course: 03/13/18 Admit, OBS- IVF's and monitoring for n/v/abd pain. CT and labs in ED reviewed. CT essentially neg except nodular changes of liver. LFT's are normal. Lipase normal. NS 2L bolus in ED. Continue maintenance fluids. Accuchecks and SSI. Hold metformin until taking po well. PRN antiemetics and Morphine prn pain. Scopolamine patch to help nausea. SCD's for DVT prevention. Protonix for abdominal pain and GI ppx. Full Code. PCP - Dr Ramachandran 03/14/18 Clinically much improved. Nausea resolved-able to eat and drink well. Not having ab pain. Dizziness essentially resolved. Able to ambulate well. Feels steady. Strength intact. Recheck lab normal. Vitals stable and patient is afebrile. With clinical improvements can discharge to home in stable condition. Diabetic diet. Activities as tolerated Continue chronic medications. Will continue with Scopolamine patch - may remove on 03/17/18. Could continue if needed, but suspect symptoms to be completely resolved by then. F/U with Dr Ramachandran in 1 week. See orders for details.
--- NOTE | 2018-03-14 13:50 | Discharge Summary ---
Discharge Information Date of admission: 03/13/18 14:38 Anticipated date of discharge: 03/14/18 Attending Physician: Chance De La Rosa MD Primary care physician: Royal Ramachandran MD - Discharge Diagnosis (1) Nausea & vomiting Status: Acute Problems Reviewed?: Yes Discharge diagnosis Nausea with vomiting Associated conditions and complications Abdominal pain Dizziness Dehydration CAD DM HTN CT finding of slight nodularity of liver - potential for cirrhosis Overweight with BMI 29.4 - Laboratory Labs: Admit Lab 03/13/18 11:06 WBC 8.8 Hgb 16.0 Hct 48.7 MCV 84.8 Plt Count 188 Neut % (Auto) 65.9 Lymph % (Auto) 27.0 [place] % (Auto) 5.6 Baso % (Auto) 0.2 Admit Lab 03/13/18 11:06 Sodium 140 Potassium 4.5 Chloride 104 Carbon Dioxide 23 Anion Gap 13 BUN 19.0 Creatinine 0.9 Estimated Creat Clear 77 GFR Calculation 86 BUN/Creatinine Ratio 21 Glucose 224 H Calculated Osmolality 278 Calcium 9.8 Total Bilirubin 0.70 Conjugated Bilirubin 0.00 Unconjugated Bilirubin 0.80 AST 31 ALT 22 Alkaline Phosphatase 97 Total Protein 7.9 Albumin 4.4 Globulin 3.5 Albumin/Globulin Ratio 1.3 Lipase 63 03/14/18 04:57 03/14/18 04:57 - Radiology Radiology: Date of Exam: 03/13/18 Type of Exam: CT abdomen pelvis w con Findings: The lung bases are grossly clear. The liver is slightly nodular suggesting possible cirrhosis. The gallbladder is surgically absent. The spleen , pancreas, adrenal glands and kidneys are within normal limits. No bowel obstruction. Bladder is normal no significant free fluid. No free air. Bone windows show no acute findings. The appendix is normal. Impression: No acute disease process seen. History of Present Illness HPI: Patient is a 58 yo male who presented to ED with n/v and dizziness which started at 0830 this am. States yesterday he felt fine and he slept well last night. He has abdominal pain and has vomited multiple times this am. Has had no diarrhea. States he had a formed BM at 0900 this am. He states when the pain in the abdomen is worse, he feels like it spreads up his chest and into his head and makes him dizzy, jose manuel when he is standing/walking. Pain was 10/10 on presentation to ER and is 8/10 now on admission following Preetiaudid and Zofran in ER. He denies h/o GERD or PUD. Has had cholecystectomy. Had CT abd/ pelvis in ED showing no acute abnormalities, just nodular change to the liver questionable for cirrhosis. Labs were essentially normal other than an elevated BS which is explained by him having DM. No blood in his emesis. No urinary symptoms. No fever. Patient was given 2 L NS in ED, Zofran x 2, promethazine, scopolamine, Toradol and Dilaudid x 2. He does feel better now than on admission and states he feels best when he is laying down. For complete details of the H&P refer to that document. Objective Vital signs: Temperature 98.3 F 03/14/18 08:00 Pulse Rate 59 L 03/14/18 08:00 Respiratory Rate 18 03/14/18 08:00 Blood Pressure 143/70 H 03/14/18 08:00 Pulse Oximetry 92 03/14/18 08:00 Height/Weight/BMI: Height 1.57 m Weight 73 kg Body Mass Index 30.2 Hospital Course This is a general summary of the patient's hospital course. For more details refer to the complete medical record. Hospital course: 03/13/18 Admit, OBS- IVF's and monitoring for n/v/abd pain. CT and labs in ED reviewed. CT essentially neg except nodular changes of liver. LFT's are normal. Lipase normal. NS 2L bolus in ED. Continue maintenance fluids. Accuchecks and SSI. Hold metformin until taking po well. PRN antiemetics and Morphine prn pain. Scopolamine patch to help nausea. SCD's for DVT prevention. Protonix for abdominal pain and GI ppx. Full Code. PCP - Dr Ramachandran 03/14/18 Clinically much improved. Nausea resolved-able to eat and drink well. Not having ab pain. Dizziness essentially resolved. Able to ambulate well. Feels steady. Strength intact. Recheck lab normal. Vitals stable and patient is afebrile. With clinical improvements can discharge to home in stable condition. Diabetic diet. Activities as tolerated Continue chronic medications. Will continue with Scopolamine patch - may remove on 03/17/18. Could continue if needed, but suspect symptoms to be completely resolved by then. F/U with Dr Ramachandran in 1 week. See orders for details. Time spent with patient: discharge greater than 30 minutes Resuscitation Status: Full Code Discharge Plan - Discharge Disposition Discharge Date: 03/14/18 Disposition: 01 Discharged Home, Self-Care *Condition: Stable Reason For Visit (Visit label in EMR): Dizziness, intractable nausea - Discharge Medications *Discharge Medications: Continue Carvedilol 25 mg PO BID #120 Hydrocodone/APAP 7.5/325 [[place] 7.5/325] 1 tab PO BID PRN PRN Reason: Pain Metformin HCl 1,000 mg PO BID Atorvastatin [Lipitor] 20 mg PO HS Aspirin [Adult Aspirin] 81 mg PO DAILY - Discharge Packet/Instructions *Diet: 2000 KCAL ADA low sodium *Activity: As tolerated *Pain Management/Treatment: May continue prior home pain medicaitons *Wound Care: N/A Additional Instructions: The patch behind your right ear contains medication that can decrease dizziness. You may leave the patch on. Remove on 03/17. The dizziness and nausea should be completely gone by then. If your symptoms of dizziness or nausea would return, be in contact with your primary care physician. *Expected Signs/Symptoms: Continued improvement of your dizziness. No recurrence of nausea or abdominal pain. *Notify Physician if: Temp >100.4. Intractable nausea or vomiting. Severe abdominal pain. Severe dizziness. Any other worrisome symptom. *During Business Hours Contact: Dr Ramachandran *After Business Hours Contact: [place] [facility] [place][phone][place] and have Dr Ramachandran contacted. *Pending Lab/Results: No Pending Lab - Referrals/Follow Up *Referrals/Follow Up: Royal Ramachandran MD [Primary Care Provider] - 1 Week (Hospital follow up for dizziness/N/V and ab pain. ) - Patient Handouts Patient Handouts: Dizziness (GEN) - Dismissal Complete Discharge Instructions are:: Complete Physician Narrative - Narrative Physician: Chance De La Rosa MD Attestation Narrative: Date: 03/14/18 Time: 8036 I have independently interviewed and examined patient prior to discharge. See my progress note for details. Medically stable for discharge to home.
== END 2018-03-14 15:10 | disposition home or self-care (01) ==
LOC: EDHOLD 10:45 → ED 10:45 → EDHOLD 15:10 → MED 15:15
PROVIDERS: ADMIT Hospitalist; ATTEND Hospitalist